=== PATIENT | male | born 1945 | race Caucasian/White ===

== ENCOUNTER 2016-03-17 21:15 | Observation (INO) | payer MEDICARE ==
[~2016-03-17] VITALS: Ht 190.5 cm; Wt 122.2 kg
[~2016-03-17 21:15] MED LIST: ADAL60TA9 PO; CLON.1; COUM5TAB PO; GLYB1TAB51 PO; LIPI40TA PO; LISI-589; METF850T PO; TAMS0.4C67 PO
[2016-03-17 21:23] VITALS: BP 151/83; PULSE 90; RESP 20; TEMP 98.1; O2SAT 97
[2016-03-17] MEDS ORDERED: SODIUM CHLORIDE 0.9% FLUSH 5 ML FLUSH IVF PRN (21:45)
[2016-03-17] MEDS ORDERED: SODIUM CHLORID 0.9% 500 ML INJ 500 ML IV ONE (21:45)
[2016-03-17] MEDS ORDERED: ASPIRIN 81 MG CHEW TAB PO ONE (21:45)
[2016-03-17] MEDS ORDERED: TAMS5CAP PO (21:51)
[2016-03-17] MEDS ORDERED: LIPI40TA PO (21:51)
[2016-03-17] MEDS ORDERED: ADAL60TA PO (21:51)
[2016-03-17] MEDS ORDERED: LISI-519 PO (21:51)
[2016-03-17] MEDS ORDERED: GLYB5TAB3 PO (21:51)
[2016-03-17] MEDS ORDERED: WARF-23 PO (21:51)
[2016-03-17] MEDS ORDERED: CLON.1 PO (21:51)
[2016-03-17] MEDS ORDERED: METF1000 PO ×2 (21:51)
[2016-03-17] MEDS ORDERED: BYET10IN2 SQ (21:53)
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
[2016-03-17 22:00] VITALS: O2SAT 96
[2016-03-17 22:18] LABS: AUTOMATED NEUTROPHIL # 7.7 TH/MM3 (1.8-7.7); BASOPHIL # 0.1 TH/MM3 (0-0.2); BASOPHIL % 0.9 % (0.0-2.0); EOSINOPHIL # 0.5 TH/MM3 (0-0.4); EOSINOPHIL % 4.4 % (0.0-4.0); HEMATOCRIT 41.8 % (39.0-51.0); HEMO FLAGS DIFF FINAL; LYMPHOCYTE # 1.9 TH/MM3 (1.0-4.8); MEAN CELL VOLUME 89.5 FL (80.0-100.0); MEAN CORPUSCULAR HEMOGLOBIN 30.7 PG (27.0-34.0); MEAN CORPUSCULAR HGB CONC 34.3 % (32.0-36.0); MONO % 5.8 % (0.0-8.0); NEUT % 70.9 % (16.0-70.0); PLATELET COUNT 233 TH/MM3 (150-450); RED BLOOD COUNT 4.67 MIL/MM3 (4.50-5.90); RED CELL DISTRIBUTION WIDTH 12.9 % (11.6-17.2); WHITE BLOOD COUNT 10.8 TH/MM3 (4.0-11.0)
--- NOTE | 2016-03-17 22:20 | RADHPO ---
EXAM DATE/TIME: 03/17/2016 22:13 [facility] COMPARISON: CHEST SINGLE AP, January 30, 2015, 18:38. INDICATIONS : Chest pain. MEDICAL HISTORY : None. SURGICAL HISTORY : None. ENCOUNTER: Initial ACUITY: 2 days PAIN SCORE: 6/10 LOCATION: Bilateral chest FINDINGS: A single view of the chest demonstrates the lungs to be symmetrically aerated without evidence of mas s, infiltrate or effusion. The heart size is enlarged. Osseous structures are intact. CONCLUSION: Cardiomegaly. Mick Carter MD on March 17, 2016 at 22:18 Board Certified Radiologist. This report was verified electronically.
[2016-03-17 22:30] VITALS: BP 133/95; PULSE 83; RESP 16
[2016-03-17 22:32] LABS: CHLORIDE 105 MEQ/L (98-107); POTASSIUM 3.6 MEQ/L (3.5-5.1); SODIUM (NA) 142 MEQ/L (136-145)
[2016-03-17 22:37] LABS: ANION GAP 11 MEQ/L (5-15); APTT (PATIENT) 31.3 SEC (24.3-30.1); BICARBONATE 25.6 MEQ/L (21.0-32.0); BLOOD UREA NITROGEN 17 MG/DL (7-18); MAGNESIUM 1.9 MG/DL (1.5-2.5); PROTHROMBIN TIME - PATIENT 22.4 SEC (9.8-11.6)
[2016-03-17 22:40] LABS: ALT (GPT) 34 U/L (12-78); AST (GOT) 21 U/L (15-37); GLOMERULAR FILTRATION RATE 66 ML/MIN (>89)
[2016-03-17 22:41] LABS: TOTAL BILIRUBIN ADULT 0.4 MG/DL (0.2-1.0)
[2016-03-17 22:43] LABS: ALKALINE PHOSPHATASE 74 U/L (45-117)
[2016-03-17 22:59] LABS: CREATINE KINASE 82 U/L (39-308)
[2016-03-17 23:26] VITALS: BP 152/96; PULSE 85; RESP 18; O2SAT 97
[2016-03-18] VITALS (9 sets, daily range): BP systolic 128–161; BP diastolic 75–100; PULSE 62–88; RESP 16–20; TEMP 97.4–98.5; O2SAT 95–99
[2016-03-18] MEDS ORDERED: DO NOT ADM ANY ANTICOAGULANT DRUGS XX PRN (00:15)
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
[2016-03-18] MEDS ORDERED: SODIUM CHLORIDE 0.9% FLUSH 5 ML FLUSH FLUSH PRN (00:30)
[2016-03-18] MEDS ORDERED: NALOXONE HCL 0.4 MG/ML AMP IV PRN (00:30)
[2016-03-18] MEDS ORDERED: EXENATIDE SQ SCH (00:30)
[2016-03-18] MEDS ORDERED: TEMAZEPAM 15 MG CAP PO PRN (00:30)
[2016-03-18] MEDS ORDERED: NITROGLYCERIN 0.3 MG SL 100 TABS/BTL SL PRN (00:30)
[2016-03-18] MEDS ORDERED: BISACODYL 10 MG SUPP PR PRN (00:30)
[2016-03-18] MEDS ORDERED: [UNRECOGNIZED DRUG - OTHER] SQ SCH (00:30)
[2016-03-18] MEDS ORDERED: ACETAMINOPHEN 325 MG TAB PO PRN (00:30)
[2016-03-18] MEDS ORDERED: GLUCAGON 1 MG/ML VIAL OTHER PRN (00:45)
[2016-03-18] MEDS ORDERED: DEXTROSE 50% IN WATER 50 ML VIAL(D50) IV PUSH PRN (00:45)
[2016-03-18] MEDS: INSULIN ASPART SUPPLEMENTAL SCALE SQ SCH ×4 (05:48→21:03)
[2016-03-18] MEDS: glyBURIDE 5 MG TAB PO SCH ×2 (05:59→13:38)
[2016-03-18] MEDS ORDERED: glyBURIDE 5 MG TAB PO SCH ×3 (07:00→09:00)
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
[2016-03-18] MEDS ORDERED: metFORMIN HCL 500 MG TAB PO SCH ×2 (09:00→21:00)
[2016-03-18] MEDS ORDERED: REGADENOSON INJ 0.4 MG/5 ML SYR IV ONE (12:47)
[2016-03-18] MEDS: cloNIDine HCL 0.1 MG TAB PO SCH ×3 (13:00→17:10)
[2016-03-18] MEDS: NIFEdipine 60 MG SUSTAINED RELEASE TAB PO SCH (13:37)
[2016-03-18] MEDS: LISINOPRIL 5 MG TAB PO SCH (13:37)
[2016-03-18] MEDS: ATORVASTATIN 40 MG TAB PO SCH (13:38)
[2016-03-18] MEDS: SODIUM CHLORIDE 0.9% FLUSH 5 ML FLUSH FLUSH SCH ×2 (13:39→21:04)
--- NOTE | 2016-03-18 15:49 | EKG ---
Date Performed: 03/17/2016 Time Performed: 21:58:24 PTAGE: 71 years EKG: Atrial fibrillation Possible anteroseptal infarct - age undetermined Inferior/lateral ST-T changes are nonspecific Low QRS voltages in limb leads Compared to prior tracing no significant haskins e Abnormal ECG PREVIOUS TRACING : 06/19/2014 09.41 DOCTOR: Lizet Mari Interpretating Date/Time 03/18/2016 15:46:02
--- NOTE | 2016-03-18 15:49 | EKG ---
Date Performed: 03/18/2016 Time Performed: 07:27:30 PTAGE: 71 years EKG: Atrial fibrillation. Possible anteroseptal infarct - age undetermined Inferior/lateral T wa ve changes are nonspecific Low QRS voltages in limb leads Compared to prior tracing no significant ch cynthia Abnormal ECG PREVIOUS TRACING : 03/17/2016 21.58 DOCTOR: Lizet Mari Interpretating Date/Time 03/18/2016 15:45:51
[2016-03-18] MEDS ORDERED: WARFARIN SOD 5 MG TAB PO SCH (16:00)
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
[2016-03-18] MEDS ORDERED: TAMSULOSIN HCL 0.4 MG CAP PO SCH (21:00)
[2016-03-19] VITALS: BP 139/89; PULSE 73; RESP 20; TEMP 96.8; O2SAT 98
[2016-03-19 04:00] VITALS: BP 130/91; PULSE 62; RESP 20; TEMP 96.7; O2SAT 99
[2016-03-19] MEDS: glyBURIDE 5 MG TAB PO SCH (05:46)
[2016-03-19] MEDS: INSULIN ASPART SUPPLEMENTAL SCALE SQ SCH ×2 (05:46→11:00)
--- NOTE | 2016-03-19 07:15 | PD.CARD.PN ---
Subjective Subjective Remarks denies any chest pain, shortness of breath, or palpitations Objective Vital Signs / I&O Vital Signs Date Time Temp Pulse Resp B/P Pulse Ox O2 Delivery O2 Flow Rate FiO2 03/19/16 04:00 96.7 62 20 130/91 99 03/19/16 00:00 96.8 73 20 139/89 98 03/18/16 20:01 78 03/18/16 20:00 97.4 70 20 128/78 99 03/18/16 16:00 97.7 88 19 140/75 95 03/18/16 12:00 98.5 80 20 160/100 97 03/18/16 08:00 97.5 79 20 160/85 96 I/O 03/18/16 03/18/16 03/18/16 03/19/16 03/19/16 03/19/16 07:00 15:00 23:00 07:00 15:00 23:00 Intake Total 500 ml 0 ml 60 ml Output Total 200 ml Balance 300 ml 0 ml 60 ml Intake Oral 60 ml IV Total 500 ml 0 ml 0 ml Output Urine Total 200 ml # Voids 4 3 # Bowel Movements 0 0 Physical Exam GENERAL: Well-nourished, well-developed patient in no apparent distress. NECK: No JVD. No carotid bruit. CARDIOVASCULAR: Regular rate and rhythm. S1/S2 no murmur, rub, or gallop. RESPIRATORY: No accessory muscle use. Clear to auscultation. Breath sounds equal bilaterally. GASTROINTESTINAL: Abdomen soft, non-tender, nondistended. MUSCULOSKELETAL: Extremities without clubbing, cyanosis, or edema. Laboratory Laboratory Tests Test 03/18/16 07:20 Troponin I LESS THAN 0.02 NG/ML Assessment and Plan Problem List: (1) Chest pain (2) Atrial fibrillation Assessment and Plan Afib - rate control strategy atypical chest pain and cardiac work up so far negative and SPECT will be completed today Problem Qualifiers (1) Chest pain: Qualified Code: R07.9 - Chest pain, unspecified type (2) Atrial fibrillation: Qualified Code: I48.2 - Permanent atrial fibrillation Rhys Schreiber Mar 19, 2016 07:15
[2016-03-19 08:00] VITALS: BP 164/98; PULSE 79; RESP 18; TEMP 96.8; O2SAT 97
[2016-03-19] MEDS: NIFEdipine 60 MG SUSTAINED RELEASE TAB PO SCH (08:32)
[2016-03-19] MEDS: LISINOPRIL 5 MG TAB PO SCH (08:32)
[2016-03-19] MEDS: SODIUM CHLORIDE 0.9% FLUSH 5 ML FLUSH FLUSH SCH (08:33)
[2016-03-19] MEDS: cloNIDine HCL 0.1 MG TAB PO SCH (08:33)
[2016-03-19] MEDS: ATORVASTATIN 40 MG TAB PO SCH (08:33)
[2016-03-19 12:00] VITALS: BP 130/72; PULSE 85; RESP 18; TEMP 98.7; O2SAT 97
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
--- NOTE | 2016-03-19 13:26 | RADHPO ---
EXAM DATE/TIME: 03/18/2016 13:05 [facility] COMPARISON: No previous studies available for comparison. INDICATIONS : Substernal chest pain radiating to left arm. Angina. Atrial fibrillation. DOSE: 30.1 mCi Tc99m Myoview at stress. 30.1 mCi Tc99m Myoview at rest. 0.4 mg Lexiscan STRESS SYMPTOMS: Headache and shortness of breath. EJECTION FRACTION: 42% MEDICAL HISTORY : Hypertension. Diabetes mellitus type 2. SURGICAL HISTORY : Throat polyps removed. ENCOUNTER: Initial ACUITY: 1 day PAIN SCALE: 5/10 LOCATION: Substernal chest TECHNIQUE: The patient underwent pharmacologic stress with infusion of prescribed dose. Continuous ECG tracing was monitored during stress. Gated SPECT imaging was performed after stress and conventional SPECT i maging was performed at rest. The examination was performed on a SPECT/CT scanner, both attenuation and non-corrected datasets were reviewed. FINDINGS: DISTRIBUTION: The maximum perfused segment at stress is in the septal wall. PERFUSION STUDY: The pattern of perfusion at stress is within normal limits. GATED STUDY: There is intact wall motion and thickening with mild global hypokinesis and 42% ejection fraction CONCLUSION: Global hypokinesis with 42% ejection fraction. No ischemic segments are identified. Left ventricular chamber enlargement RISK CATEGORY: Intermediate (1-3% Annual Mortality Rate) Loy Huddleston MD on March 19, 2016 at 13:22 Board Certified Radiologist. This report was verified electronically.
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
== END 2016-03-19 14:36 | disposition home or self-care (01) ==
LOC: PHED 21:15 → PHEDA 23:44 → PH3B 03-18 01:39
PROVIDERS: ADMIT Internal Medicine; ATTEND Internal Medicine
DX: R07.9 Chest pain, unspecified (principal); I48.91 Unspecified atrial fibrillation; E11.9 Type 2 diabetes mellitus without complications; I10 Essential (primary) hypertension; E78.5 Hyperlipidemia, unspecified; F17.200 Nicotine dependence, unspecified, uncomplicated; J45.909 Unspecified asthma, uncomplicated; M19.90 Unspecified osteoarthritis, unspecified site; M10.9 Gout, unspecified; N40.0 Benign prostatic hyperplasia without lower urinary tract symptoms; M79.622 Pain in left upper arm; E16.2 Hypoglycemia, unspecified; Z79.01 Long term (current) use of anticoagulants
CPT/HCPCS: 71010; 78452; 80053; 82550; 82948; 83735; 83880; 84484; 85025; 85610; 85730; 93005; 93017; 96360; 99285; A9502; G0378; J1815; J2785; J7040

== ENCOUNTER 2016-11-01 21:53 | Emergency (ER) | payer MEDICARE ==
[~2016-11-01] VITALS: Ht 190.5 cm; Wt 118.2 kg
[~2016-11-01 21:53] MED LIST changes: +ADAL60TA PO; -ADAL60TA9 PO; +BYET10IN2 SQ; -CLON.1; +CLON.1 PO; -COUM5TAB PO; -GLYB1TAB51 PO; +GLYB5TAB3 PO; +LISI-519 PO; -LISI-589; +METF1000 PO; -METF850T PO; -TAMS0.4C67 PO; +TAMS5CAP PO; +WARF-23 PO
[2016-11-01 21:56] VITALS: BP 185/83; PULSE 81; RESP 20; TEMP 98.2; O2SAT 98
--- NOTE | 2016-11-01 22:23 | PD ---
HPI Chief Complaint: Headache Time Seen by Provider: 22:12 Travel History International Travel<30 days: No Contact w/Intl Traveler<30days: No Traveled to known affect area: No History of Present Illness HPI The patient is a 71-year-old male that complains of midline frontoparietal headache for 2 days. The headache is of gradual onset. The patient is on Coumadin for atrial fibrillation. He also has a history of diabetes and hypertension. He denies any focal neurologic change, nausea, vomiting or diarrhea. He denies any fever. PFSH Past Medical History Hx Anticoagulant Therapy: Yes (COUMADIN ) Arthritis: Yes (L HIP) Asthma: Yes Atrial Fibrillation: Yes Autoimmune Disease: No Blood Disorders: No Anxiety: No Depression: No Heart Rhythm Problems: Yes (A FIB) Cancer: No Cardiac Catheterization: No Cardiovascular Problems: Yes (HTN, A Fib ) High Cholesterol: Yes Chemotherapy: No Chest Pain: Yes Congestive Heart Failure: No COPD: No Cerebrovascular Accident: No Diabetes: Yes Diminished Hearing: No Endocrine: Yes Glaucoma: No Gout: Yes Genitourinary: Yes Headaches: No Hypertension: Yes Immune Disorder: No Kidney Stones: Yes Musculoskeletal: Yes Neurologic: No Psychiatric: No Reproductive: No Respiratory: Yes Integumentary: Yes (psoriasis) Myocardial Infarction: No Radiation Therapy: No Renal Failure: No Seizures: No Sickle Cell Disease: No Sleep Apnea: No Thyroid Disease: No Past Surgical History Abdominal Surgery: No AICD: No Cardiac Surgery: No Coronary Artery Bypass Graft: No Ear Surgery: No Endocrine Surgery: No Eye Surgery: No Genitourinary Surgery: Yes (KIDNEY STONE REMOVAL) Gynecologic Surgery: No Oral Surgery: No Pacemaker: No Thoracic Surgery: No Other Surgery: Yes ( THROAT POLYPS 1982) Social History Alcohol Use: No (OWNED A BAR IN 1969'S 'I USED TO DRINK' NOW I DON'T) Tobacco Use: Yes (1959'S 10 CIGARETTES PER DAY, CIGARS OCCASIONALLY) Substance Use: No Allergies-Medications (Allergen,Severity, Reaction): Coded Allergies: No Known Allergies (Verified , 11/01/16) Reported Meds & Prescriptions Reported Meds & Active Scripts Active Reported Byetta Inj (Exenatide) 10 Mcg/0.04 Ml Pfpen 10 Mcg SQ BID Use within 60 minutes before the two main meals of the day. Flomax (Tamsulosin HCl) 0.4 Mg Cap 0.4 Mg PO HS Warfarin 5 Mg Tab 5 Mg PO DAILY Adalat CC (Nifedipine) 60 Mg Tab 60 Mg PO DAILY Metformin (Metformin HCl) 1,000 Mg Tab 1,500 Mg PO HS With meals Metformin (Metformin HCl) 1,000 Mg Tab 1,000 Mg PO DAILY With a meal Lisinopril 5 Mg Tab 5 Mg PO DAILY Glyburide 5 Mg Tab 5 Mg PO BID Take with meals at the same time each day Catapres (Clonidine) 0.1 Mg Tab 0.1 Mg PO TID Lipitor (Atorvastatin Calcium) 40 Mg Tab 40 Mg PO DAILY Review of Systems Except as stated in HPI: all other systems reviewed are Neg Physical Exam Narrative GENERAL: The patient is alert, oriented 3 in minimal apparent distress with his bifrontal/midline parietal headache. His vital signs show blood pressure 185/83 but are otherwise normal. SKIN: Focused skin assessment warm/dry. HEAD: Atraumatic. Normocephalic. EYES: Pupils equal and round. No scleral icterus. No injection or drainage. ENT: No nasal bleeding or discharge. Mucous membranes pink and moist. NECK: Trachea midline. No JVD. The patient flexes neck fully so that his chin touches the chest. He does not have any problem flexing his neck. CARDIOVASCULAR: Regular rate and rhythm. No murmur appreciated. RESPIRATORY: No accessory muscle use. Clear to auscultation. Breath sounds equal bilaterally. GASTROINTESTINAL: Abdomen soft, non-tender, nondistended. Hepatic and splenic margins not palpable. MUSCULOSKELETAL: No obvious deformities. No clubbing. No cyanosis. No edema. NEUROLOGICAL: Awake and alert. No obvious cranial nerve deficits. Motor grossly within normal limits. Normal speech. PSYCHIATRIC: Appropriate mood and affect; insight and judgment normal. Data Data Last Documented VS Vital Signs Date Time Temp Pulse Resp B/P (MAP) Pulse Ox O2 Delivery O2 Flow Rate FiO2 11/01/16 23:54 79 18 131/68 (89) 98 Room Air 11/01/16 21:56 98.2 Orders Orders Complete Blood Count With Diff (11/01/16 22:24) Comprehensive Metabolic Panel (11/01/16 22:24) Prothrombin Time / Inr (Pt) (11/01/16 22:24) Ct Brain W/O Iv Contrast(Rout) (11/01/16 22:24) Hydromorphone Pf Inj (Dilaudid Pf Inj) (11/01/16 22:45) Ondansetron Inj (Zofran Inj) (11/01/16 22:45) Labs Laboratory Tests Test 11/01/16 23:10 White Blood Count 8.8 TH/MM3 Red Blood Count 4.39 MIL/MM3 Hemoglobin 13.7 GM/DL Hematocrit 40.4 % Mean Corpuscular Volume 92.0 FL Mean Corpuscular Hemoglobin 31.3 PG Mean Corpuscular Hemoglobin Concent 34.0 % Red Cell Distribution Width 13.2 % Platelet Count 200 TH/MM3 Mean Platelet Volume 8.4 FL Neutrophils (%) (Auto) 75.6 % Lymphocytes (%) (Auto) 16.4 % Monocytes (%) (Auto) 6.0 % Eosinophils (%) (Auto) 1.6 % Basophils (%) (Auto) 0.4 % Neutrophils # (Auto) 6.8 TH/MM3 Lymphocytes # (Auto) 1.4 TH/MM3 Monocytes # (Auto) 0.5 TH/MM3 Eosinophils # (Auto) 0.1 TH/MM3 Basophils # (Auto) 0.0 TH/MM3 CBC Comment DIFF FINAL Differential Comment Prothrombin Time 27.3 SEC Prothromb Time International Ratio 2.4 RATIO Blood Urea Nitrogen 18 MG/DL Creatinine 1.10 MG/DL Random Glucose 154 MG/DL Total Protein 6.5 GM/DL Albumin 3.2 GM/DL Calcium Level 8.7 MG/DL Alkaline Phosphatase 58 U/L Aspartate Amino Transf (AST/SGOT) 21 U/L Alanine Aminotransferase (ALT/SGPT) 37 U/L Total Bilirubin 0.4 MG/DL Sodium Level 138 MEQ/L Potassium Level 3.5 MEQ/L Chloride Level 103 MEQ/L Carbon Dioxide Level 23.1 MEQ/L Anion Gap 12 MEQ/L Estimat Glomerular Filtration Rate 66 ML/MIN [facility] Medical Decision Making Medical Screen Exam Complete: Yes Emergency Medical Condition: Yes Medical Record Reviewed: Yes Interpretation(s) The complete metabolic profile shows a GFR of 56, glucose 154 and albumin 3.2 but is otherwise unremarkable. The ProTime is 27.3 with an INR 2.4. The CBC is normal. The CT brain is normal. Differential Diagnosis Headache etiology undetermined, intracranial bleed, meningitis-highly unlikely, electrolyte disorder, sinusitis, viral syndrome, hypertensive headache Narrative Course It is now 1210 and the patient feels much better and wants to go home. He will be given a prescription for Lortab 5/325. His will drive him home. The patient appears to have headache etiology undetermined. Additional Instructions: Do not drink alcohol or drive on the Lortab 5. Follow-up with your primary care physician about this headache should it return. Med/Other Pt SpecificInfo: Prescription(s) given Scripts Hydrocodone-Acetaminophen (Lortab) 5-325 Mg Tab 1 TAB PO Q4H Y for PAIN, #28 TAB 0 Refills Prov: Jefferson Wall MD 11/02/16 Disposition: 01 DISCHARGE HOME Condition: Stable Jefferson Wall MD Nov 01, 2016 22:23
[2016-11-01] MEDS ORDERED: ENALAPRILAT 2.5 MG/2 ML VIAL IV PUSH ONE (22:30)
[2016-11-01] MEDS ORDERED: HYDROmorphone HCL PF 1 MG/ML VIAL IVP ONE (22:45)
[2016-11-01] MEDS ORDERED: ONDANSETRON HCL 4 MG/2 ML VIAL IV ONE (22:45)
--- NOTE | 2016-11-01 23:02 | RADRPT ---
EXAM DATE/TIME: 11/01/2016 22:44 [facility] COMPARISON: CT BRAIN W/O CONTRAST, June 19, 2014, 11:25. INDICATIONS : Bilateral frontal cephalgia. RADIATION DOSE: 62.91 CTDIvol (mGy) MEDICAL HISTORY : Diabetes mellitus type 2. Hypertension. SURGICAL HISTORY : None. ENCOUNTER: Initial ACUITY: 2 days PAIN SCALE: 7/10 LOCATION: Bilateral frontal TECHNIQUE: Multiple contiguous axial images were obtained of the head. Using automated exposure control and adj ustment of the mA and/or kV according to patient size, radiation dose was kept as low as reasonably a chievable to obtain optimal diagnostic quality images. DICOM format image data is available electro nically for review and comparison. FINDINGS: CEREBRUM: The ventricles are normal for age. No evidence of midline shift, mass lesion, hemorrhage or acute in farction. No extra-axial fluid collections are seen. POSTERIOR FOSSA: The cerebellum and brainstem are intact. The 4th ventricle is midline. The cerebellopontine angle i s unremarkable. EXTRACRANIAL: The visualized portion of the orbits is intact. SKULL: The calvaria is intact. No evidence of skull fracture. CONCLUSION: Normal examination. Roddy Medeiros Jr., MD on November 01, 2016 at 22:58 Board Certified Radiologist. This report was verified electronically.
[2016-11-01 23:15] VITALS: BP 141/90; PULSE 78; RESP 18; O2SAT 99
[2016-11-01 23:27] LABS: AUTOMATED NEUTROPHIL # 6.8 TH/MM3 (1.8-7.7); BASOPHIL % 0.4 % (0.0-2.0); EOSINOPHIL # 0.1 TH/MM3 (0-0.4); EOSINOPHIL % 1.6 % (0.0-4.0); HEMATOCRIT 40.4 % (39.0-51.0); HEMO FLAGS DIFF FINAL; LYMPH % 16.4 % (9.0-44.0); LYMPHOCYTE # 1.4 TH/MM3 (1.0-4.8); MEAN CORPUSCULAR HEMOGLOBIN 31.3 PG (27.0-34.0); NEUT % 75.6 % (16.0-70.0); PLATELET COUNT 200 TH/MM3 (150-450); RED BLOOD COUNT 4.39 MIL/MM3 (4.50-5.90); RED CELL DISTRIBUTION WIDTH 13.2 % (11.6-17.2); WHITE BLOOD COUNT 8.8 TH/MM3 (4.0-11.0)
[2016-11-01 23:37] LABS: CHLORIDE 103 MEQ/L (98-107); POTASSIUM 3.5 MEQ/L (3.5-5.1); SODIUM (NA) 138 MEQ/L (136-145)
[2016-11-01 23:41] LABS: ANION GAP 12 MEQ/L (5-15); BICARBONATE 23.1 MEQ/L (21.0-32.0); BLOOD UREA NITROGEN 18 MG/DL (7-18); INTERNATIONAL NORMALIZED RATIO 2.4 RATIO; PROTHROMBIN TIME - PATIENT 27.3 SEC (9.8-11.6)
[2016-11-01 23:44] LABS: ALT (GPT) 37 U/L (12-78); AST (GOT) 21 U/L (15-37); GLOMERULAR FILTRATION RATE 66 ML/MIN (>89)
[2016-11-01 23:45] LABS: TOTAL BILIRUBIN ADULT 0.4 MG/DL (0.2-1.0)
[2016-11-01 23:47] LABS: ALKALINE PHOSPHATASE 58 U/L (45-117)
[2016-11-01 23:54] VITALS: BP 131/68; PULSE 79; RESP 18; O2SAT 98
[2016-11-02] MEDS ORDERED: HYDR-3533 PO (00:11)
[2016-11-02 00:49] VITALS: BP 136/78
== END 2016-11-02 00:51 | disposition home or self-care (01) ==
LOC: PHED 21:53
DX: R51 Headache (principal); F17.210 Nicotine dependence, cigarettes, uncomplicated; I10 Essential (primary) hypertension; I48.91 Unspecified atrial fibrillation; Z79.01 Long term (current) use of anticoagulants
CPT/HCPCS: 70450; 80053; 85025; 85610; 96374; 96375; 99285; J1170; J2405

== ENCOUNTER 2016-12-25 04:08 | Emergency (ER) | payer MEDICARE ==
[~2016-12-25] VITALS: Ht 190.5 cm; Wt 121.6 kg
[~2016-12-25 04:08] MED LIST changes: +HYDR-3533 PO
[2016-12-25 04:14] VITALS: BP 141/69; PULSE 93; RESP 16; TEMP 97.8; O2SAT 97
[2016-12-25] MEDS ORDERED: SODIUM CHLORIDE 0.9% FLUSH 10 ML FLUSH IVF PRN (04:15)
[2016-12-25 04:23] VITALS: O2SAT 97
[2016-12-25 04:26] VITALS: BP_SYST 136; BP_SYST 141; BP_DIAS 68; BP_DIAS 69
[2016-12-25 04:30] LABS: AUTOMATED NEUTROPHIL # 7.4 TH/MM3 (1.8-7.7); BASOPHIL # 0.3 TH/MM3 (0-0.2); BASOPHIL % 2.1 % (0.0-2.0); EOSINOPHIL # 0.8 TH/MM3 (0-0.4); EOSINOPHIL % 6.2 % (0.0-4.0); HEMATOCRIT 38.4 % (39.0-51.0); HEMO FLAGS DIFF FINAL; LYMPH % 24.5 % (9.0-44.0); MEAN CELL VOLUME 90.3 FL (80.0-100.0); MEAN CORPUSCULAR HEMOGLOBIN 29.8 PG (27.0-34.0); MONO % 6.1 % (0.0-8.0); NEUT % 61.1 % (16.0-70.0); PLATELET COUNT 252 TH/MM3 (150-450); RED BLOOD COUNT 4.25 MIL/MM3 (4.50-5.90); WHITE BLOOD COUNT 12.2 TH/MM3 (4.0-11.0)
[2016-12-25 04:36] LABS: CHLORIDE 101 MEQ/L (98-107); POTASSIUM 3.4 MEQ/L (3.5-5.1); SODIUM (NA) 136 MEQ/L (136-145)
--- NOTE | 2016-12-25 04:37 | RADRPT ---
EXAM DATE/TIME: 12/25/2016 04:23 [facility] COMPARISON: CHEST SINGLE AP, March 17, 2016, 22:13. INDICATIONS : Chest pressure for 8 hours MEDICAL HISTORY : None. SURGICAL HISTORY : None. ENCOUNTER: Initial ACUITY: 1 day PAIN SCORE: 0/10 LOCATION: Bilateral chest FINDINGS: The cardiac silhouette is enlarged in transverse diameter. There is prominence of the aortic knob is with calcification characteristic of atherosclerotic vascular disease. There is prominence of the liane tral pulmonary vasculature with indistinct vascular margins compatible with vascular congestion but n o evidence of overt failure. CONCLUSION: 1. Cardiomegaly and findings of vascular congestion without overt failure. Loy Huddleston MD on December 25, 2016 at 4:35 Board Certified Radiologist. This report was verified electronically.
[2016-12-25 04:39] LABS: INTERNATIONAL NORMALIZED RATIO 2.8 RATIO; PROTHROMBIN TIME - PATIENT 32.4 SEC (9.8-11.6)
[2016-12-25 04:40] LABS: ANION GAP 11 MEQ/L (5-15); BICARBONATE 24.5 MEQ/L (21.0-32.0); BLOOD UREA NITROGEN 19 MG/DL (7-18); MAGNESIUM 1.6 MG/DL (1.5-2.5)
[2016-12-25 04:43] LABS: ALT (GPT) 28 U/L (12-78); AST (GOT) 12 U/L (15-37); GLOMERULAR FILTRATION RATE 87 ML/MIN (>89)
[2016-12-25 04:45] LABS: TOTAL BILIRUBIN ADULT 0.4 MG/DL (0.2-1.0)
[2016-12-25 04:46] LABS: ALKALINE PHOSPHATASE 69 U/L (45-117)
[2016-12-25 04:49] LABS: CREATINE KINASE 70 U/L (39-308)
--- NOTE | 2016-12-25 04:53 | PD ---
HPI Chief Complaint: Chest Pain Time Seen by Provider: 04:15 Travel History International Travel<30 days: No Contact w/Intl Traveler<30days: No Traveled to known affect area: No History of Present Illness HPI The patient is a 71-year-old male with a history of chronic atrial fibrillation and is on Coumadin for this who complains of a pressure type pain in the lower sternal area since 8 PM yesterday. The pain is been constant since 8 PM and is not associated with nausea, shortness of breath, diaphoresis or radiation of pain. The pain has been constant since 8 PM and is not associated with nausea, shortness of breath, diaphoresis or radiation of pain. He does not smoke but took one cigarette and got nauseated yesterday. He does experience secondhand smoke. The patient had a normal stress test 6 months ago. PFSH Past Medical History Hx Anticoagulant Therapy: Yes (COUMADIN ) Arthritis: Yes (L HIP) Asthma: Yes Atrial Fibrillation: Yes Autoimmune Disease: No Blood Disorders: No Anxiety: No Depression: No Heart Rhythm Problems: Yes (A FIB) Cancer: No Cardiac Catheterization: No Cardiovascular Problems: Yes (HTN, A Fib ) High Cholesterol: Yes Chemotherapy: No Chest Pain: Yes Congestive Heart Failure: No COPD: No Cerebrovascular Accident: No Diabetes: Yes Patient Takes Glucophage: No Diminished Hearing: No Endocrine: Yes Gastrointestinal Disorders: No Glaucoma: No Gout: Yes Genitourinary: Yes Headaches: No Heparin Induced Thrombocytopen: No Hypertension: Yes Immune Disorder: No Implanted Vascular Access Dvce: No Kidney Stones: Yes Musculoskeletal: Yes Neurologic: No Psychiatric: No Reproductive: No Respiratory: Yes Integumentary: Yes (psoriasis) Myocardial Infarction: No Radiation Therapy: No Renal Failure: No Seizures: No Sickle Cell Disease: No Sleep Apnea: No Thyroid Disease: No Tetanus Vaccination: < 5 Years Influenza Vaccination: No Past Surgical History Abdominal Surgery: No AICD: No Cardiac Surgery: No Coronary Artery Bypass Graft: No Ear Surgery: No Endocrine Surgery: No Eye Surgery: No Genitourinary Surgery: Yes (KIDNEY STONE REMOVAL) Gynecologic Surgery: No Insulin Pump: No Neurologic Surgery: No Oral Surgery: No Pacemaker: No Thoracic Surgery: No Other Surgery: Yes ( THROAT POLYPS 1982) Social History Alcohol Use: No (OWNED A BAR IN 'I USED TO DRINK' NOW I DON'T) Tobacco Use: Yes (1960'S 10 CIGARETTES PER DAY, CIGARS OCCASIONALLY) Substance Use: No Allergies-Medications (Allergen,Severity, Reaction): Coded Allergies: No Known Allergies (Verified Adverse Reaction, Unknown, 12/25/16) Reported Meds & Prescriptions Reported Meds & Active Scripts Active Reported [place] Inj (Exenatide) 10 Mcg/0.04 Ml Pfpen 10 Mcg SQ BID Use within 60 minutes before the two main meals of the day. Flomax (Tamsulosin HCl) 0.4 Mg Cap 0.4 Mg PO HS Warfarin 5 Mg Tab 5 Mg PO DAILY Adalat CC (Nifedipine) 60 Mg Tab 60 Mg PO DAILY Metformin (Metformin HCl) 1,000 Mg Tab 1,500 Mg PO HS With meals Metformin (Metformin HCl) 1,000 Mg Tab 1,000 Mg PO DAILY With a meal Lisinopril 5 Mg Tab 5 Mg PO DAILY Glyburide 5 Mg Tab 5 Mg PO BID Take with meals at the same time each day Catapres (Clonidine) 0.1 Mg Tab 0.1 Mg PO TID Lipitor (Atorvastatin Calcium) 40 Mg Tab 40 Mg PO DAILY Review of Systems Except as stated in HPI: all other systems reviewed are Neg Physical Exam Narrative GENERAL: The patient is alert, oriented 3 in minimal apparent distress with his chest discomfort. His vital signs show heart rate of 93 but otherwise normal. SKIN: Focused skin assessment warm/dry. HEAD: Atraumatic. Normocephalic. EYES: Pupils equal and round. No scleral icterus. No injection or drainage. ENT: No nasal bleeding or discharge. Mucous membranes pink and moist. NECK: Trachea midline. No JVD. CARDIOVASCULAR: Regular rate and rhythm. No murmur appreciated. I can completely reproduce the patient's chest pain by pressing on his lower sternal area where he perceives the pain. RESPIRATORY: No accessory muscle use. Clear to auscultation. Breath sounds equal bilaterally. GASTROINTESTINAL: Abdomen soft, non-tender, nondistended. Hepatic and splenic margins not palpable. MUSCULOSKELETAL: No obvious deformities. No clubbing. No cyanosis. No edema. NEUROLOGICAL: Awake and alert. No obvious cranial nerve deficits. Motor grossly within normal limits. Normal speech. PSYCHIATRIC: Appropriate mood and affect; insight and judgment normal. Data Data Last Documented VS Vital Signs Date Time Temp Pulse Resp B/P (MAP) Pulse Ox O2 Delivery O2 Flow Rate FiO2 12/25/16 04:26 141/69 (93) 136/68 (90) 12/25/16 04:23 97 Room Air 12/25/16 04:14 97.8 93 16 Orders Orders Electrocardiogram (12/25/16 04:15) Ckmb (Isoenzyme) Profile (12/25/16 04:15) Complete Blood Count With Diff (12/25/16 04:15) Comprehensive Metabolic Panel (12/25/16 04:15) Magnesium (Mg) (12/25/16 04:15) Prothrombin Time / Inr (Pt) (12/25/16 04:15) Troponin I (12/25/16 04:15) Chest, Single Ap (12/25/16 04:15) Ecg Monitoring (12/25/16 04:15) Bilateral Bp Monitoring (12/25/16 04:15) Iv Access Insert/Monitor (12/25/16 04:15) Oximetry (12/25/16 04:15) Oxygen Administration (12/25/16 04:15) Sodium Chloride 0.9% Flush (Ns Flush) (12/25/16 04:15) Labs Laboratory Tests Test 12/25/16 04:24 White Blood Count 12.2 TH/MM3 Red Blood Count 4.25 MIL/MM3 Hemoglobin 12.6 GM/DL Hematocrit 38.4 % Mean Corpuscular Volume 90.3 FL Mean Corpuscular Hemoglobin 29.8 PG Mean Corpuscular Hemoglobin Concent 33.0 % Red Cell Distribution Width 13.0 % Platelet Count 252 TH/MM3 Mean Platelet Volume 8.4 FL Neutrophils (%) (Auto) 61.1 % Lymphocytes (%) (Auto) 24.5 % Monocytes (%) (Auto) 6.1 % Eosinophils (%) (Auto) 6.2 % Basophils (%) (Auto) 2.1 % Neutrophils # (Auto) 7.4 TH/MM3 Lymphocytes # (Auto) 3.0 TH/MM3 Monocytes # (Auto) 0.7 TH/MM3 Eosinophils # (Auto) 0.8 TH/MM3 Basophils # (Auto) 0.3 TH/MM3 CBC Comment DIFF FINAL Differential Comment Prothrombin Time 32.4 SEC Prothromb Time International Ratio 2.8 RATIO Blood Urea Nitrogen 19 MG/DL Creatinine 0.86 MG/DL Random Glucose 146 MG/DL Total Protein 7.3 GM/DL Albumin 3.5 GM/DL Calcium Level 8.5 MG/DL Magnesium Level 1.6 MG/DL Alkaline Phosphatase 69 U/L Aspartate Amino Transf (AST/SGOT) 12 U/L Alanine Aminotransferase (ALT/SGPT) 28 U/L Total Bilirubin 0.4 MG/DL Sodium Level 136 MEQ/L Potassium Level 3.4 MEQ/L Chloride Level 101 MEQ/L Carbon Dioxide Level 24.5 MEQ/L Anion Gap 11 MEQ/L Estimat Glomerular Filtration Rate 87 ML/MIN Total Creatine Kinase 70 U/L Troponin I LESS THAN 0.02 NG/ML MDM Medical Decision Making Medical Screen Exam Complete: Yes Emergency Medical Condition: Yes Medical Record Reviewed: Yes Interpretation(s) The EKG shows atrial fibrillation which is controlled to a ventricular rate of [address] elevation or depression. There is a single PVC present. The ProTime is 32.4 with an INR of 2.8. The complete metabolic profile shows a potassium of 3.4, BUN of 19, glucose of 146 but is otherwise unremarkable. The cardiac enzymes are normal. The CBC shows a white count of 12,200 with a hemoglobin of 12.6 and hematocrit of 23.4 but is otherwise unremarkable. Differential Diagnosis Acute coronary syndrome, atypical chest pain, pleuritic chest pain, chest wall pain, esophageal pain, gastrointestinal pain, electrolyte disorder, Coumadin over coagulation, Coumadin under coagulation Narrative Course The patient appears to have chest wall pain. He does not have any elevation of the coronary enzymes. He had a normal stress test 6 months ago. He does want to go home now. He has no chest pain now. His INR appears to be right on target. Diagnosis Primary Impression: Chest wall pain Additional Instructions: Follow-up with your primary care physician or plate preparer. It appears that your warfarin level is right on target. Med/Other Pt SpecificInfo: No Change to Meds Disposition: 01 DISCHARGE HOME Condition: Stable Jefferson Wall MD Dec 25, 2016 04:53
[2016-12-25 05:01] VITALS: BP 126/66
--- NOTE | 2016-12-25 18:04 | EKG ---
Date Performed: 12/25/2016 Time Performed: 04:18:39 PTAGE: 71 years EKG: ATRIAL FIBRILLATION WITH ABERRANT CONDUCTION OR VENTRICULAR PREMATURE COMPLEXES LOW QRS VOL TAGE IN EXTREMITY LEADS ABNORMAL RHYTHM ECG PREVIOUS TRACING : 03/18/2016 07.27 DOCTOR: Evita Lazaro Interpretating Date/Time 12/25/2016 18:02:12
== END 2016-12-25 05:08 | disposition home or self-care (01) ==
LOC: PHED 04:08
DX: R07.89 Other chest pain (principal); R94.31 Abnormal electrocardiogram [ECG] [EKG]; E11.9 Type 2 diabetes mellitus without complications; I10 Essential (primary) hypertension; E78.00 Pure hypercholesterolemia, unspecified; Z79.01 Long term (current) use of anticoagulants; Z79.84 Long term (current) use of oral hypoglycemic drugs; Z79.899 Other long term (current) drug therapy; Z86.79 Personal history of other diseases of the circulatory system; Z87.39 Personal history of other diseases of the musculoskeletal system and connective tissue; Z87.09 Personal history of other diseases of the respiratory system; Z87.448 Personal history of other diseases of urinary system; Z87.2 Personal history of diseases of the skin and subcutaneous tissue
CPT/HCPCS: 71010; 80053; 82550; 83735; 84484; 85025; 85610; 93005; 96360

== ENCOUNTER 2017-06-15 03:08 | Observation (INO) | payer MEDICARE ==
[~2017-06-15] VITALS: Ht 190.5 cm; Wt 109.6 kg
[~2017-06-15 03:08] MED LIST changes: -HYDR-3533 PO
[2017-06-15 03:12] VITALS: BP 114/58; PULSE 91; RESP 18; TEMP 98.4; O2SAT 98
[2017-06-15] MEDS ORDERED: NITROGLYCERIN 2% OINT 1 GM PACKET TOP ONE (03:15)
[2017-06-15] MEDS ORDERED: SODIUM CHLORIDE 0.9% FLUSH 10 ML FLUSH IVF PRN (03:15)
[2017-06-15] MEDS ORDERED: ASPIRIN 81 MG CHEW TAB PO ONE (03:15)
--- NOTE | 2017-06-15 03:15 | PD ---
HPI Chief Complaint: CP Time Seen by Provider: 03:13 Travel History International Travel<30 days: No Contact w/Intl Traveler<30days: No Traveled to known affect area: No History of Present Illness HPI CHEST TIGHTNESS FOR PAST 2-3HRS. Rates the pressure 3 out of 10, nonradiating, substernal, along with palpitations. Patient denies having any shortness of breath, currently he is chest pain-free. Patient denies any alleviating or aggravating factors. Patient denies any associated factors such as fever, cough , runny nose, sore throat, back pain, flank pain, abdominal pain. Cardiac risk factors include hypertension, hypercholesterolemia and diabetes. No known drug allergy Past medical history significant for hypertension, atrial fibrillation on Coumadin, hypercholesterolemia, hypertension, asthma, sleep apnea, kidney stones , gout, diabetes, CLAUSTROPHOBIA, BPH, psoriasis ADMITS 2CIG/DAY, OCC ETOH, PFSH Past Medical History Hx Anticoagulant Therapy: Yes (COUMADIN ) Arthritis: Yes (L HIP) Asthma: Yes Atrial Fibrillation: Yes Autoimmune Disease: No Blood Disorders: No Anxiety: No Depression: No Heart Rhythm Problems: Yes (A FIB) Cancer: No Cardiac Catheterization: No Cardiovascular Problems: Yes (HTN, A Fib ) High Cholesterol: Yes Chemotherapy: No Chest Pain: Yes Congestive Heart Failure: No COPD: No Cerebrovascular Accident: No Diabetes: Yes Diminished Hearing: No Endocrine: Yes Gastrointestinal Disorders: No Glaucoma: No Gout: Yes Genitourinary: Yes Headaches: No Heparin Induced Thrombocytopen: No Hypertension: Yes Immune Disorder: No Implanted Vascular Access Dvce: No Kidney Stones: Yes Musculoskeletal: Yes Neurologic: No Psychiatric: No Reproductive: No Respiratory: Yes Integumentary: Yes (psoriasis) Myocardial Infarction: No Radiation Therapy: No Renal Failure: No Seizures: No Sickle Cell Disease: No Sleep Apnea: No Thyroid Disease: No Past Surgical History Abdominal Surgery: No AICD: No Cardiac Surgery: No Coronary Artery Bypass Graft: No Ear Surgery: No Endocrine Surgery: No Eye Surgery: No Genitourinary Surgery: Yes (KIDNEY STONE REMOVAL) Gynecologic Surgery: No Insulin Pump: No Neurologic Surgery: No Oral Surgery: No Pacemaker: No Thoracic Surgery: No Other Surgery: Yes ( THROAT POLYPS 1982) Social History Alcohol Use: No Tobacco Use: Yes (2-3 cigs qd) Substance Use: No Allergies-Medications (Allergen,Severity, Reaction): Coded Allergies: No Known Allergies (Verified Adverse Reaction, Unknown, 06/15/17) Reported Meds & Prescriptions Reported Meds & Active Scripts Active Reported Coumadin (Warfarin) 2.5 Mg Tab 2.5 Mg PO MON, WED, WED Glyburide 5 Mg Tab 5 Mg PO DAILY Take with meals at the same time each day [place] Inj (Exenatide) 10 Mcg/0.04 Ml Pfpen 10 Mcg SQ BID Use within 60 minutes before the two main meals of the day. Flomax (Tamsulosin HCl) 0.4 Mg Cap 0.4 Mg PO HS Warfarin 5 Mg Tab 5 Mg PO DAILY Adalat CC (Nifedipine) 60 Mg Tab 60 Mg PO DAILY Metformin (Metformin HCl) 1,000 Mg Tab 1,500 Mg PO HS With meals Metformin (Metformin HCl) 1,000 Mg Tab 1,000 Mg PO DAILY With a meal Lisinopril 5 Mg Tab 5 Mg PO DAILY Catapres (Clonidine) 0.1 Mg Tab 0.1 Mg PO TID Lipitor (Atorvastatin Calcium) 40 Mg Tab 40 Mg PO DAILY Review of Systems General / Constitutional: No: Fever Eyes: No: Visual changes HENT: No: Headaches Cardiovascular: Positive: Chest Pain or Discomfort Respiratory: No: Shortness of Breath Gastrointestinal: No: Abdominal Pain Genitourinary: No: Dysuria Musculoskeletal: No: Pain Skin: No Rash Neurologic: No: Weakness Psychiatric: No: Depression Endocrine: No: Polydipsia Hematologic/Lymphatic: No: Easy Bruising Physical Exam Narrative GENERAL: SKIN: Warm and dry. HEAD: Atraumatic. Normocephalic. EYES: Pupils equal and round. No scleral icterus. No injection or drainage. ENT: No nasal bleeding or discharge. Mucous membranes pink and moist. NECK: Trachea midline. No JVD. CARDIOVASCULAR: Irregularly irregular rhythm, non-tachycardic rate RESPIRATORY: No accessory muscle use. Clear to auscultation. Breath sounds equal bilaterally. GASTROINTESTINAL: Abdomen soft, non-tender, nondistended. MUSCULOSKELETAL: Extremities without clubbing, cyanosis, or edema. No obvious deformities. NEUROLOGICAL: Awake and alert. No obvious cranial nerve deficits. Motor grossly within normal limits. Five out of 5 muscle strength in the arms and legs. Normal speech. PSYCHIATRIC: Appropriate mood and affect; insight and judgment normal. Data Data Last Documented VS Vital Signs Date Time Temp Pulse Resp B/P (MAP) Pulse Ox O2 Delivery O2 Flow Rate FiO2 06/15/17 03:12 91 98 Room Air 06/15/17 03:12 98.4 18 114/58 (76) Orders Orders Electrocardiogram (06/15/17 03:15) B-Type Natriuretic Peptide (06/15/17 03:15) Ckmb (Isoenzyme) Profile (06/15/17 03:15) Complete Blood Count With Diff (06/15/17 03:15) Comprehensive Metabolic Panel (06/15/17 03:15) Prothrombin Time / Inr (Pt) (06/15/17 03:15) Act Partial Throm Time (Ptt) (06/15/17 03:15) Troponin I (06/15/17 03:15) Lipase (06/15/17 03:15) Chest, Single Ap (06/15/17 03:15) Ecg Monitoring (06/15/17 03:15) Bilateral Bp Monitoring (06/15/17 03:15) Iv Access Insert/Monitor (06/15/17 03:15) Oximetry (06/15/17 03:15) Aspirin Chew (Aspirin Chew) (06/15/17 03:15) Nitroglycerin 2% Oint (Nitroglycerin 2% (06/15/17 03:15) Sodium Chloride 0.9% Flush (Ns Flush) (06/15/17 03:15) Labs Laboratory Tests Test 06/15/17 03:22 White Blood Count 13.3 TH/MM3 Red Blood Count 4.46 MIL/MM3 Hemoglobin 13.1 GM/DL Hematocrit 40.0 % Mean Corpuscular Volume 89.6 FL Mean Corpuscular Hemoglobin 29.5 PG Mean Corpuscular Hemoglobin Concent 32.9 % Red Cell Distribution Width 13.1 % Platelet Count 248 TH/MM3 Mean Platelet Volume 8.8 FL Neutrophils (%) (Auto) 67.3 % Lymphocytes (%) (Auto) 21.2 % Monocytes (%) (Auto) 4.9 % Eosinophils (%) (Auto) 5.8 % Basophils (%) (Auto) 0.8 % Neutrophils # (Auto) 9.0 TH/MM3 Lymphocytes # (Auto) 2.8 TH/MM3 Monocytes # (Auto) 0.6 TH/MM3 Eosinophils # (Auto) 0.8 TH/MM3 Basophils # (Auto) 0.1 TH/MM3 CBC Comment DIFF FINAL Differential Comment Prothrombin Time 19.6 SEC Prothromb Time International Ratio 1.9 RATIO Activated Partial Thromboplast Time 28.7 SEC Blood Urea Nitrogen 17 MG/DL Creatinine 1.10 MG/DL Random Glucose 175 MG/DL Total Protein 7.6 GM/DL Albumin 3.7 GM/DL Calcium Level 9.2 MG/DL Alkaline Phosphatase 67 U/L Aspartate Amino Transf (AST/SGOT) 19 U/L Alanine Aminotransferase (ALT/SGPT) 31 U/L Total Bilirubin 0.5 MG/DL Sodium Level 137 MEQ/L Potassium Level 3.3 MEQ/L Chloride Level 104 MEQ/L Carbon Dioxide Level 22.5 MEQ/L Anion Gap 11 MEQ/L Estimat Glomerular Filtration Rate 65 ML/MIN Total Creatine Kinase 71 U/L Troponin I LESS THAN 0.02 NG/ML B-Type Natriuretic Peptide 157 PG/ML Lipase 187 U/L MDM Medical Decision Making Medical Screen Exam Complete: Yes Emergency Medical Condition: Yes Medical Record Reviewed: Yes Interpretation(s) EKG shows atrial fibrillation with PVCs, rate around 80s. No evidence of any ST elevation [place] pattern. Differential Diagnosis STEMI versus non-STEMI versus pneumonia versus pleural effusion Narrative Course CBC shows a reactive leukocytosis of 13 but without a left shift, no anemia, normal platelet count Coagulation profile shows an INR 1.9, the patient is appropriately anticoagulated on Coumadin for his atrial fibrillation. Electrolytes are all within normal limits, except for a random glucose of 175, normal creatinine liver and pancreatic functions. First set of cardiac enzymes negative, and beta natruretic peptide is 157 which is not consistent with major pulmonary edema or congestive heart failure. Chest x-ray read by radiologist as borderline prominent heart, lungs are clear. Diagnosis Primary Impression: Chest pain rule out [place] Admitting Information Admitting Physician Requests: John Joseph MD June 15, 2017 03:15
[2017-06-15 03:30] LABS: BASOPHIL # 0.1 TH/MM3 (0-0.2); BASOPHIL % 0.8 % (0.0-2.0); EOSINOPHIL # 0.8 TH/MM3 (0-0.4); EOSINOPHIL % 5.8 % (0.0-4.0); HEMOGLOBIN 13.1 GM/DL (13.0-17.0); LYMPH % 21.2 % (9.0-44.0); LYMPHOCYTE # 2.8 TH/MM3 (1.0-4.8); MEAN CELL VOLUME 89.6 FL (80.0-100.0); MEAN CORPUSCULAR HEMOGLOBIN 29.5 PG (27.0-34.0); MEAN CORPUSCULAR HGB CONC 32.9 % (32.0-36.0); MEAN PLATELET VOLUME 8.8 FL (7.0-11.0); MONO % 4.9 % (0.0-8.0); MONOCYTE # 0.6 TH/MM3 (0-0.9); NEUT % 67.3 % (16.0-70.0); PLATELET COUNT 248 TH/MM3 (150-450); RED BLOOD COUNT 4.46 MIL/MM3 (4.50-5.90); RED CELL DISTRIBUTION WIDTH 13.1 % (11.6-17.2); WHITE BLOOD COUNT 13.3 TH/MM3 (4.0-11.0)
--- NOTE | 2017-06-15 03:34 | RADRPT ---
EXAM DATE/TIME: 06/15/2017 03:22 [facility] COMPARISON: CHEST SINGLE AP, December 25, 2016, 4:23. INDICATIONS : Chest pressure for one hour. MEDICAL HISTORY : None. SURGICAL HISTORY : None. ENCOUNTER: Initial ACUITY: 1 day PAIN SCORE: 0/10 LOCATION: Bilateral chest FINDINGS: A single view of the chest demonstrates the lungs to be symmetrically aerated without evidence of mas s, infiltrate or effusion. The heart size is borderline prominent or compensated. Osseous structure s are intact. CONCLUSION: 1. Borderline prominence or compensated heart. 2. Lungs are clear Dusty Grace MD on June 15, 2017 at 3:31 Board Certified Radiologist. This report was verified electronically.
[2017-06-15 03:39] LABS: CHLORIDE 104 MEQ/L (98-107); SODIUM (NA) 137 MEQ/L (136-145)
[2017-06-15 03:42] LABS: CALCIUM 9.2 MG/DL (8.5-10.1)
[2017-06-15 03:43] LABS: ALBUMIN 3.7 GM/DL (3.4-5.0); BICARBONATE 22.5 MEQ/L (21.0-32.0); BLOOD UREA NITROGEN 17 MG/DL (7-18); GLUCOSE,RANDOM 175 MG/DL (74-106); INTERNATIONAL NORMALIZED RATIO 1.9 RATIO; PROTHROMBIN TIME - PATIENT 19.6 SEC (9.8-11.6)
[2017-06-15 03:46] LABS: ALT (GPT) 31 U/L (12-78); AST (GOT) 19 U/L (15-37); GLOMERULAR FILTRATION RATE 65 ML/MIN (>89)
[2017-06-15] MEDS ORDERED: COUM2.5T PO (03:46)
[2017-06-15] MEDS ORDERED: GLYB5TAB3 PO (03:46)
[2017-06-15 03:47] LABS: TOTAL BILIRUBIN ADULT 0.5 MG/DL (0.2-1.0); TOTAL PROTEIN 7.6 GM/DL (6.4-8.2)
[2017-06-15 03:49] LABS: ALKALINE PHOSPHATASE 67 U/L (45-117)
[2017-06-15 03:51] LABS: TROPONIN I LESS THAN 0.02 NG/ML (0.02-0.05)
[2017-06-15] MEDS ORDERED: SODIUM CHLOR 0.9% 1000 ML INJ 1,000 ML IV SCH (04:14)
[2017-06-15] MEDS ORDERED: SODIUM CHLORIDE 0.9% FLUSH 10 ML FLUSH IV FLUSH PRN (04:15)
[2017-06-15] MEDS ORDERED: ONDANSETRON HCL 4 MG/2 ML VIAL IV PUSH PRN (04:15)
[2017-06-15] MEDS ORDERED: ACETAMINOPHEN 500 MG CPLT PO PRN (04:15)
[2017-06-15 04:28] VITALS: BP 116/59; PULSE 75; RESP 18; O2SAT 95
[2017-06-15] MEDS ORDERED: DEXTROSE 50% IN WATER 50 ML VIAL(D50) IV PUSH PRN (04:30)
[2017-06-15] MEDS ORDERED: GLUCAGON 1 MG/ML VIAL OTHER PRN (04:30)
[2017-06-15 06:30] VITALS: BP 124/73; PULSE 89; RESP 20; TEMP 97.5; O2SAT 97
[2017-06-15 06:40] LABS: TROPONIN I LESS THAN 0.02 NG/ML (0.02-0.05)
[2017-06-15 07:50] VITALS: PULSE 176; PULSE 73
[2017-06-15 08:00] VITALS: BP 125/69; PULSE 85; RESP 19; TEMP 96.8; O2SAT 96
[2017-06-15] MEDS ORDERED: INSULIN ASPART SUPPLEMENTAL SCALE SQ SCH (08:00)
--- NOTE | 2017-06-15 08:13 | HHI.HP ---
[facility] Primary Care Physician Ap Sexton MD Admission Diagnosis CP R/O [place] Diagnoses: (1) Chest pain (2) Atrial fibrillation Chief Complaint: Chest pain Travel History International Travel<30 Days: No Contact w/Intl Traveler <30 Da: No Traveled to Known Affected Are: No History of Present Illness This is a pleasant 72-year-old male patient with a known medical history of atrial fibrillation on anticoagulation, hypertension who presented to the ED with complaints of chest pain. Patient states he had a relatively stressful day with family issues and last evening while laying in bed he developed a pressure-like midsternal chest pain. Patient states the pain was nonradiating, rated at 3 out of 10 on pain scale, denied any associated nausea, vomiting, shortness breath or diaphoresis. Patient denies any known alleviating factors. Pain is worse with movement or deep breathing and to chest palpation. Patient states the pressure lasted roughly 3 hours and then went away on its own but continues to come and go with certain activities. He does admit to having this sensation before roughly a year ago, underwent a cardiac nuclear stress test which was reportedly negative. Patient does follow with Dr. Ramos, cardiology, last seen 6 months ago with no changes in medications. Patient does state he did have similar chest pressure couple months ago went to the urgent care and had an EKG done which was reportedly negative with controlled chronic atrial fibrillation. Patient also states he had an echocardiogram done in the office with Dr. Ramos which was reportedly negative. Patient denies any recent illness including fever, chills, shortness of breath, abdominal pain , nausea, vomiting, diarrhea dysuria. He has been feeling relatively healthy and at his baseline. Patient does admit to recent strenuous activity, denies any trauma to the chest. On palpation of midsternal chest wall there is discomfort, patient states that this discomfort is similar to what he was feeling to bring him into the ED. Toradol effective. PCP is Dr. Sexton. Review of Systems Constitutional: DENIES: Fatigue, Fever, Chills Eyes: DENIES: Blurred vision, Diplopia Respiratory: DENIES: Cough, Sputum production, Shortness of breath Cardiovascular: COMPLAINS OF: Chest pain Gastrointestinal: DENIES: Abdominal pain, Black stools, Bloody stools, Constipation, Diarrhea, Nausea, Vomiting Musculoskeletal: DENIES: Joint pain Hematologic/lymphatic: DENIES: Bruising Psychiatric: DENIES: Anxiety Except as stated in HPI: all other systems reviewed are Neg Past Family Social History Past Medical History Atrial fibrillation on anticoagulation Coumadin Arthritis in the left hip Asthma Hypertension Hypercholesterolemia Gout Psoriasis Past Surgical History Lithotripsy Removal of throat polyps 1982 Reported Medications Active Reported Coumadin (Warfarin) 2.5 Mg Tab 2.5 Mg PO MON, WED, FRI Glyburide 5 Mg Tab 5 Mg PO DAILY Take with meals at the same time each day Byetta Inj (Exenatide) 10 Mcg/0.04 Ml Pfpen 10 Mcg SQ BID Use within 60 minutes before the two main meals of the day. Flomax (Tamsulosin HCl) 0.4 Mg Cap 0.4 Mg PO HS Warfarin 5 Mg Tab 5 Mg PO DAILY Adalat CC (Nifedipine) 60 Mg Tab 60 Mg PO DAILY Metformin (Metformin HCl) 1,000 Mg Tab 1,500 Mg PO HS With meals Metformin (Metformin HCl) 1,000 Mg Tab 1,000 Mg PO DAILY With a meal Lisinopril 5 Mg Tab 5 Mg PO DAILY Catapres (Clonidine) 0.1 Mg Tab 0.1 Mg PO TID Lipitor (Atorvastatin Calcium) 40 Mg Tab 40 Mg PO DAILY Allergies: Coded Allergies: No Known Allergies (Verified Adverse Reaction, Unknown, 06/15/17) Active Ordered Medications Current Medications Medications (Trade) Dose Ordered Sig/Bria Route Start Time Stop Time Status Last Admin Sodium Chloride 1,000 ml @ 100 mls/hr Q10H IV 06/15/17 04:14 06/15/17 05:08 (NS Flush) 2 ml UNSCH PRN IV FLUSH 06/15/17 04:15 (NS Flush) 2 ml BID IV FLUSH 06/15/17 09:00 (Tylenol) 500 mg Q4H PRN PO 06/15/17 04:15 (Zofran Inj) 4 mg Q6H PRN IV PUSH 06/15/17 04:15 (Aspirin) 325 mg DAILY PO 06/15/17 09:00 (Lipitor) 40 mg DAILY PO 06/15/17 09:00 (Catapres) 0.1 mg TID PO 06/15/17 09:00 (Prinivil) 5 mg DAILY PO 06/15/17 09:00 (Procardia Xl) 60 mg DAILY PO 06/15/17 09:00 (Flomax) 0.4 mg HS PO 06/15/17 21:00 (Coumadin) 5 mg DAILY@1600 PO 06/15/17 16:00 Pharmacy Profile Note 0 ml @ 0 mls/hr UNSCH OTHER 06/15/17 04:30 (D50w (Vial) Inj) 50 ml UNSCH PRN IV PUSH 06/15/17 04:30 (Glucagon Inj) 1 mg UNSCH PRN OTHER 06/15/17 04:30 (NovoLOG SUPPLEMENTAL SCALE) 1 ACHS SLIDING SCALE SQ 06/15/17 08:00 (KCl) 30 meq ONCE ONCE PO 06/15/17 08:15 06/15/17 08:16 UNV Family History Denies any significant family medical history of cardiovascular disease. Social History Patient admits to smoking 2-3 cigarettes per day. Patient states that smokes in the home. Denies any alcohol use. Denies any illicit drug use. Physical Exam Vital Signs Vital Signs Date Time Temp Pulse Resp B/P (MAP) Pulse Ox O2 Delivery O2 Flow Rate FiO2 06/15/17 06:30 97.5 89 20 124/73 (90) 97 06/15/17 06:18 06/15/17 04:28 75 18 116/59 (78) 95 Room Air 06/15/17 03:12 91 98 Room Air 06/15/17 03:12 98.4 91 18 114/58 (76) 98 Physical Exam GENERAL: Well-developed, well-nourished patient in NAD. SKIN: Warm and dry. No rash. HEAD: Normocephalic. Atraumatic. EYES: Pupils equal and round. No scleral icterus. No injection or drainage. ENT: No nasal bleeding or discharge. Mucous membranes pink and moist. NECK: Supple. Trachea midline. CARDIOVASCULAR: Irregularly irregular rhythm. No murmur appreciated. Chest pressure/pain to palpation. RESPIRATORY: No accessory muscle use. Clear to auscultation. Breath sounds equal bilaterally. GASTROINTESTINAL: Abdomen soft, non-tender, nondistended. Normoactive bowel sounds x4. MUSCULOSKELETAL: No obvious deformities. Extremities without clubbing, cyanosis , or edema. NEUROLOGICAL: Awake and alert. No obvious cranial nerve deficits. Motor grossly within normal limits. 5/5 muscle strength in bilateral upper and lower extremities. Normal speech. PSYCHIATRIC: Appropriate mood and affect; insight and judgment normal. Laboratory Laboratory Tests Test 06/15/17 03:22 06/15/17 06:10 White Blood Count 13.3 Red Blood Count 4.46 Hemoglobin 13.1 Hematocrit 40.0 Mean Corpuscular Volume 89.6 Mean Corpuscular Hemoglobin 29.5 Mean Corpuscular Hemoglobin Concent 32.9 Red Cell Distribution Width 13.1 Platelet Count 248 Mean Platelet Volume 8.8 Neutrophils (%) (Auto) 67.3 Lymphocytes (%) (Auto) 21.2 Monocytes (%) (Auto) 4.9 Eosinophils (%) (Auto) 5.8 Basophils (%) (Auto) 0.8 Neutrophils # (Auto) 9.0 Lymphocytes # (Auto) 2.8 Monocytes # (Auto) 0.6 Eosinophils # (Auto) 0.8 Basophils # (Auto) 0.1 CBC Comment DIFF FINAL Differential Comment Prothrombin Time 19.6 Prothromb Time International Ratio 1.9 Activated Partial Thromboplast Time 28.7 Blood Urea Nitrogen 17 Creatinine 1.10 Random Glucose 175 Total Protein 7.6 Albumin 3.7 Calcium Level 9.2 Alkaline Phosphatase 67 Aspartate Amino Transf (AST/SGOT) 19 Alanine Aminotransferase (ALT/SGPT) 31 Total Bilirubin 0.5 Sodium Level 137 Potassium Level 3.3 Chloride Level 104 Carbon Dioxide Level 22.5 Anion Gap 11 Estimat Glomerular Filtration Rate 65 Total Creatine Kinase 71 61 Troponin I LESS THAN 0.02 LESS THAN 0.02 B-Type Natriuretic Peptide 157 Lipase 187 Result Diagram: 06/15/17 0322 06/15/17 0322 Imaging Last Impressions Chest X-Ray 06/15/17 0315 Signed Impressions: Service Date/Time: Thursday, June 15, 2017 03:22 - CONCLUSION: 1. Borderline prominence or compensated heart. 2. Lungs are clear Dusty Grace MD Septic Shock Reassessment Septic shock perfusion: reassessment completed Caprini VTE Risk Assessment Caprini VTE Risk Assessment: Mod/High Risk (score >= 2) Caprini Risk Assessment Model Point Value = 1 Point Value = 2 Point Value = 3 Point Value = 5 Age 41-60 Minor surgery BMI > 25 kg/m2 Swollen legs Varicose veins or History of unexplained or recurrent spontaneous Oral contraceptives or hormone replacement Sepsis (< 1 month) Serious lung disease, including pneumonia (< 1 month) Abnormal pulmonary function Acute myocardial infarction Congestive heart failure (< 1 month) History of inflammatory bowel disease Medical patient at bed rest Age 61-74 Arthroscopic surgery Major open surgery (> 45 min) Laparoscopic surgery (> 45 min) Malignancy Confined to bed (> 72 hours) Immobilizing plaster cast Central venous access Age >= 75 History of VTE Family history of VTE Factor V Leiden Prothrombin [id number] Lupus anticoagulant Anticardiolipin antibodies Elevated serum homocysteine Heparin-induced thrombocytopenia Other congenital or acquired thrombophilia Stroke (< 1 month) Elective arthroplasty Hip, pelvis, or leg fracture Acute spinal cord injury (< 1 month) Prophylaxis Regimen Total Risk Factor Score Risk Level Prophylaxis Regimen 0-1 Low Early ambulation 2 Moderate Order ONE of the following: *Sequential Compression Device (SCD) *Heparin 5000 units SQ BID 3-4 Higher Order ONE of the following medications: *Heparin 5000 units SQ TID *Enoxaparin/Lovenox 40 mg SQ daily (WT < 150 kg, CrCl > 30 mL/min) *Enoxaparin/Lovenox 30 mg SQ daily (WT < 150 kg, CrCl > 10-29 mL/min) *Enoxaparin/Lovenox 30 mg SQ BID (WT < 150 kg, CrCl > 30 mL/min) AND/OR *Sequential Compression Device (SCD) 5 or more Highest Order ONE of the following medications: *Heparin 5000 units SQ TID (Preferred with Epidurals) *Enoxaparin/Lovenox 40 mg SQ daily (WT < 150 kg, CrCl > 30 mL/min) *Enoxaparin/Lovenox 30 mg SQ daily (WT < 150 kg, CrCl > 10-29 mL/min) *Enoxaparin/Lovenox 30 mg SQ BID (WT < 150 kg, CrCl > 30 mL/min) AND *Sequential Compression Device (SCD) Assessment and Plan Problem List: (1) Chest pain ICD Code: R07.9 - Chest pain, unspecified Status: Acute Plan: Rule out ACS versus musculoskeletal cause versus unknown etiology Patient has been admitted to the chest pain center under observation. Serial EKGs and serial troponins have been ordered for ruling out ACS purposes. Cardiac enzymes flat. EKG reviewed showing controlled atrial fibrillation. No ST changes to indicate ischemia. ACS ruled out. Chest pain has now resolved wit Toradol. Chest x-ray reviewed showing borderline prominent heart. Lungs are clear. Patient does follow with Dr. Ramos, cardiology, and underwent a stress test less than 1 year ago which was reportedly negative. Patient has also been followed for his hypertension and high cholesterol, echocardiogram was done 2 months ago which was reportedly negative. Patient is appropriately anticoagulated on Coumadin. feather trimmer reviewed overnight, no acute arrhythmias. Controlled atrial fibrillation. Patient does have chest pain to palpation, relieved with Toradol. Patient desiring to be discharged and follow- up with Dr. Ramos in the outpatient setting. Dr. Ramos has been updated about patient arrival and admission and will see him in his office this week. (2) Atrial fibrillation ICD Code: I48.91 - Unspecified atrial fibrillation Status: Chronic Plan: Controlled. Appropriately anticoagulated on Coumadin. Continue. Follow INR. Carina Boswell June 15, 2017 08:13
[2017-06-15] MEDS ORDERED: KETOROLAC TROMETHAMINE 30 MG/ML (IVP) VIAL IV PUSH ONE (08:15)
[2017-06-15] MEDS ORDERED: POTASSIUM CHLORIDE 10 MEQ CONTROLLED RELEASE TAB PO ONE (08:15)
--- NOTE | 2017-06-15 08:21 | HHI.DCPOC ---
Discharge Care Plan Diagnosis: (1) Chest pain (2) Atrial fibrillation Goals to Promote Your Health * To prevent worsening of your condition and complications * To maintain your health at the optimal level Directions to Meet Your Goals Take your medications as prescribed Follow your dietary instruction Follow activity as directed Keep your appointments as scheduled Take your immunizations and boosters as scheduled If your symptoms worsen call your PCP, if no PCP go to Urgent Care Center or Emergency Room Smoking is Dangerous to Your Health. Avoid second hand smoke Call the 24-hour hour crisis hotline for domestic abuse at Carina Boswell June 15, 2017 08:21
--- NOTE | 2017-06-15 08:25 | EKG ---
Date Performed: 06/15/2017 Time Performed: 06:11:29 PTAGE: 72 years EKG: ATRIAL FIBRILLATION WITH ABERRANT CONDUCTION OR VENTRICULAR PREMATURE COMPLEXES LOW QRS VOL TAGE IN EXTREMITY LEADS NONSPECIFIC T-WAVE ABNORMALITY ABNORMAL RHYTHM ECG No significant change from prior electrocardiogram. PREVIOUS TRACING : 06/15/2017 03.18 DOCTOR: Alok Dwyer Interpretating Date/Time 06/15/2017 08:25:21
--- NOTE | 2017-06-15 08:28 | EKG ---
Date Performed: 06/15/2017 Time Performed: 03:18:22 PTAGE: 72 years EKG: ATRIAL FIBRILLATION WITH ABERRANT CONDUCTION OR VENTRICULAR PREMATURE COMPLEXES LOW QRS VOL TAGE IN EXTREMITY LEADS NONSPECIFIC ST & T-WAVE ABNORMALITY ABNORMAL ECG No significant change from p rior electrocardiogram. PREVIOUS TRACING : 12/25/2016 04.18 DOCTOR: Alok Dwyer Interpretating Date/Time 06/15/2017 08:27:00
[2017-06-15] MEDS ORDERED: cloNIDine HCL 0.1 MG TAB PO SCH (09:00)
[2017-06-15] MEDS ORDERED: LISINOPRIL 5 MG TAB PO SCH (09:00)
[2017-06-15] MEDS ORDERED: SODIUM CHLORIDE 0.9% FLUSH 10 ML FLUSH IV FLUSH SCH (09:00)
[2017-06-15] MEDS ORDERED: ASPIRIN 325 MG TAB PO SCH (09:00)
[2017-06-15] MEDS ORDERED: NIFEdipine 60 MG SUSTAINED RELEASE TAB PO SCH (09:00)
[2017-06-15] MEDS ORDERED: ATORVASTATIN 40 MG TAB PO SCH (09:00)
[2017-06-15 09:12] LABS: TROPONIN I LESS THAN 0.02 NG/ML (0.02-0.05)
--- NOTE | 2017-06-15 15:18 | EKG ---
Date Performed: 06/15/2017 Time Performed: 08:34:10 PTAGE: 72 years EKG: ATRIAL FIBRILLATION WITH ABERRANT CONDUCTION OR VENTRICULAR PREMATURE COMPLEXES LOW QRS VOL TAGE IN EXTREMITY LEADS SEPTAL MYOCARDIAL INFARCTION ABNORMAL ECG No significant change from prior el ectrocardiogram. PREVIOUS TRACING : 06/15/2017 06.11 DOCTOR: Alok Dwyer Interpretating Date/Time 06/15/2017 15:17:44
[2017-06-15] MEDS ORDERED: WARFARIN SOD 5 MG TAB PO SCH ×2 (16:00)
[2017-06-15] MEDS ORDERED: TAMSULOSIN HCL 0.4 MG CAP PO SCH (21:00)
== END 2017-06-15 12:11 | disposition home or self-care (01) ==
LOC: PHED 03:08 → PHEDA 04:22 → PH3A 06:22
PROVIDERS: ADMIT Hospitalist; ATTEND Hospitalist
DX: R07.89 Other chest pain (principal); I48.2 Chronic atrial fibrillation; D72.828 Other elevated white blood cell count; I10 Essential (primary) hypertension; J45.909 Unspecified asthma, uncomplicated; E78.00 Pure hypercholesterolemia, unspecified; E11.9 Type 2 diabetes mellitus without complications; R94.31 Abnormal electrocardiogram [ECG] [EKG]; G47.30 Sleep apnea, unspecified; F40.240 Claustrophobia; M16.12 Unilateral primary osteoarthritis, left hip; N40.0 Benign prostatic hyperplasia without lower urinary tract symptoms; F17.210 Nicotine dependence, cigarettes, uncomplicated; Z79.899 Other long term (current) drug therapy; Z79.84 Long term (current) use of oral hypoglycemic drugs; Z79.01 Long term (current) use of anticoagulants
CPT/HCPCS: 71045; 80053; 82550; 82948; 83690; 83880; 84484; 85025; 85610; 85730; 93005; 96361; 96374; 99285; G0378; J1885; J7030

== ENCOUNTER 2017-07-04 17:44 | Emergency (ER) | payer MEDICARE ==
[~2017-07-04] VITALS: Ht 190.5 cm; Wt 114.0 kg
[~2017-07-04 17:44] MED LIST changes: +COUM2.5T PO
[2017-07-04 17:52] VITALS: BP 153/96; PULSE 82; RESP 16; TEMP 98.7; O2SAT 96
[2017-07-04] MEDS ORDERED: SODIUM CHLORIDE 0.9% FLUSH 10 ML FLUSH IV FLUSH PRN (19:15)
--- NOTE | 2017-07-04 19:21 | PD ---
HPI Chief Complaint: GI Complaint Time Seen by Provider: 18:20 Travel History International Travel<30 days: No Contact w/Intl Traveler<30days: No Traveled to known affect area: No History of Present Illness HPI Patient presents to the emergency department complaint of constipation 4-5 days. Does take narcotic pain medication but he is unable provide the name with certainty, thinks it's lortab. He's taken laxatives in the past with some success and he took a laxative today around 1 PM but has not been able to move his bowels. He is passing flatus, and denies nausea, vomiting, abdominal pain, fever, chills, dysuria. PFSH Past Medical History Hx Anticoagulant Therapy: Yes (COUMADIN) Arthritis: Yes (L HIP) Asthma: Yes Atrial Fibrillation: Yes Autoimmune Disease: No Blood Disorders: No Anxiety: No Depression: No Heart Rhythm Problems: Yes (A FIB) Cancer: No Cardiac Catheterization: No Cardiovascular Problems: Yes (HTN, A Fib ) High Cholesterol: Yes Chemotherapy: No Chest Pain: Yes Congestive Heart Failure: No COPD: No Cerebrovascular Accident: No Diabetes: Yes Patient Takes Glucophage: Yes Diminished Hearing: No Endocrine: Yes Gastrointestinal Disorders: No Glaucoma: No Gout: Yes Genitourinary: Yes Headaches: No Heparin Induced Thrombocytopen: No Hypertension: Yes Immune Disorder: No Implanted Vascular Access Dvce: No Kidney Stones: Yes Musculoskeletal: Yes Neurologic: No Psychiatric: No Reproductive: No Respiratory: Yes Myocardial Infarction: No Radiation Therapy: No Renal Failure: No Seizures: No Sickle Cell Disease: No Sleep Apnea: No Thyroid Disease: No Past Surgical History Abdominal Surgery: No AICD: No Cardiac Surgery: No Coronary Artery Bypass Graft: No Ear Surgery: No Endocrine Surgery: No Eye Surgery: No Genitourinary Surgery: Yes (KIDNEY STONE REMOVAL) Gynecologic Surgery: No Insulin Pump: No Neurologic Surgery: No Oral Surgery: No Pacemaker: No Thoracic Surgery: No Other Surgery: Yes ( THROAT POLYPS 1982) Social History Alcohol Use: No Tobacco Use: Yes (2-3 cigs qd) Substance Use: No Allergies-Medications (Allergen,Severity, Reaction): Coded Allergies: No Known Allergies (Verified Adverse Reaction, Unknown, 07/04/17) Reported Meds & Prescriptions Reported Meds & Active Scripts Active Reported Coumadin (Warfarin) 2.5 Mg Tab 2.5 Mg PO MON, WED, WED Glyburide 5 Mg Tab 5 Mg PO DAILY Take with meals at the same time each day Byetta Inj (Exenatide) 10 Mcg/0.04 Ml Pfpen 10 Mcg SQ BID Use within 60 minutes before the two main meals of the day. Flomax (Tamsulosin HCl) 0.4 Mg Cap 0.4 Mg PO HS Warfarin 5 Mg Tab 5 Mg PO DAILY Adalat CC (Nifedipine) 60 Mg Tab 60 Mg PO DAILY Metformin (Metformin HCl) 1,000 Mg Tab 1,500 Mg PO HS With meals Metformin (Metformin HCl) 1,000 Mg Tab 1,000 Mg PO DAILY With a meal Lisinopril 5 Mg Tab 5 Mg PO DAILY Catapres (Clonidine) 0.1 Mg Tab 0.1 Mg PO TID Lipitor (Atorvastatin Calcium) 40 Mg Tab 40 Mg PO DAILY Review of Systems Except as stated in HPI: all other systems reviewed are Neg Physical Exam Narrative GENERAL: No acute distress. SKIN: Focused skin assessment warm/dry. HEAD: Atraumatic. Normocephalic. EYES: Extra ocular muscles intact bilateral. No scleral icterus. No injection or drainage. ENT: No nasal bleeding or discharge. Mucous membranes pink and moist. NECK: Trachea midline. No JVD. CARDIOVASCULAR: Regular rate and rhythm. No murmur appreciated. RESPIRATORY: No accessory muscle use. Clear to auscultation. Breath sounds equal bilaterally. GASTROINTESTINAL: Abdomen soft, non-tender, obese. Hepatic and splenic margins not palpable. Rectal: Brown, soft stool. MUSCULOSKELETAL: No obvious deformities. No clubbing. No cyanosis. No edema. NEUROLOGICAL: Awake and alert. No obvious cranial nerve deficits. Motor grossly within normal limits. Normal speech. PSYCHIATRIC: Appropriate mood and affect; insight and judgment normal. Data Data Last Documented VS Vital Signs Date Time Temp Pulse Resp B/P (MAP) Pulse Ox O2 Delivery O2 Flow Rate FiO2 07/04/17 17:52 98.7 82 16 153/96 (115) 96 Orders Orders Complete Blood Count With Diff (07/04/17 19:02) Comprehensive Metabolic Panel (07/04/17 19:02) Abdomen, Flat & Upright (07/04/17 ) Iv Access Insert/Monitor (07/04/17 19:02) Ecg Monitoring (07/04/17 19:02) Oximetry (07/04/17 19:02) Sodium Chloride 0.9% Flush (Ns Flush) (07/04/17 19:15) Bisacodyl Supp (Dulcolax Supp) (07/04/17 19:45) Fleets Enema (Adult) (Fleets Enema (Adul (07/04/17 19:45) Labs Laboratory Tests Test 07/04/17 18:09 White Blood Count 12.2 TH/MM3 Red Blood Count 4.41 MIL/MM3 Hemoglobin 13.0 GM/DL Hematocrit 39.0 % Mean Corpuscular Volume 88.4 FL Mean Corpuscular Hemoglobin 29.6 PG Mean Corpuscular Hemoglobin Concent 33.5 % Red Cell Distribution Width 13.4 % Platelet Count 254 TH/MM3 Mean Platelet Volume 9.6 FL Neutrophils (%) (Auto) 70.7 % Lymphocytes (%) (Auto) 16.1 % Monocytes (%) (Auto) 6.8 % Eosinophils (%) (Auto) 4.6 % Basophils (%) (Auto) 1.8 % Neutrophils # (Auto) 8.6 TH/MM3 Lymphocytes # (Auto) 2.0 TH/MM3 Monocytes # (Auto) 0.8 TH/MM3 Eosinophils # (Auto) 0.6 TH/MM3 Basophils # (Auto) 0.2 TH/MM3 CBC Comment DIFF FINAL Differential Comment Blood Urea Nitrogen 19 MG/DL Creatinine 0.95 MG/DL Random Glucose 111 MG/DL Total Protein 7.7 GM/DL Albumin 3.7 GM/DL Calcium Level 9.1 MG/DL Aspartate Amino Transf (AST/SGOT) 25 U/L Alanine Aminotransferase (ALT/SGPT) 26 U/L Total Bilirubin 0.5 MG/DL Sodium Level 138 MEQ/L Potassium Level 4.4 MEQ/L Chloride Level 107 MEQ/L Carbon Dioxide Level 23.6 MEQ/L Anion Gap 7 MEQ/L Estimat Glomerular Filtration Rate 77 ML/MIN MDM Medical Decision Making Medical Screen Exam Complete: Yes Emergency Medical Condition: Yes Differential Diagnosis Constipation, fecal impaction, bowel obstruction Narrative Course He presents to the emergency department complaining of constipation. Placed on the monitor, IV access obtained, labs and x-ray ordered. On my rectal exam I was able to remove a small amount of stool, and patient felt like he can have a bowel movement. But he was unable to move his bowels but he went to the restroom. I have written for Dulcolax suppository to be given in the emergency department. 1932: Patient sent out to Dr. Velázquez for x-ray results and labs and final dispo. Merissa Cabello MD July 04, 2017 19:21
[2017-07-04 19:31] LABS: AUTOMATED NEUTROPHIL # 8.6 TH/MM3 (1.8-7.7); BASOPHIL # 0.2 TH/MM3 (0-0.2); BASOPHIL % 1.8 % (0.0-2.0); EOSINOPHIL # 0.6 TH/MM3 (0-0.4); EOSINOPHIL % 4.6 % (0.0-4.0); LYMPH % 16.1 % (9.0-44.0); MEAN CELL VOLUME 88.4 FL (80.0-100.0); MEAN CORPUSCULAR HEMOGLOBIN 29.6 PG (27.0-34.0); MEAN CORPUSCULAR HGB CONC 33.5 % (32.0-36.0); MEAN PLATELET VOLUME 9.6 FL (7.0-11.0); MONO % 6.8 % (0.0-8.0); MONOCYTE # 0.8 TH/MM3 (0-0.9); NEUT % 70.7 % (16.0-70.0); PLATELET COUNT 254 TH/MM3 (150-450); RED BLOOD COUNT 4.41 MIL/MM3 (4.50-5.90); RED CELL DISTRIBUTION WIDTH 13.4 % (11.6-17.2); WHITE BLOOD COUNT 12.2 TH/MM3 (4.0-11.0)
--- NOTE | 2017-07-04 19:35 | RADRPT ---
EXAM DATE/TIME: 07/04/2017 19:09 [facility] COMPARISON: No previous studies available for comparison. INDICATIONS : Constipation MEDICAL HISTORY : None. SURGICAL HISTORY : None. ENCOUNTER: Initial ACUITY: 3 days PAIN SCORE: 0/10 LOCATION: Abdomen FINDINGS: Supine and upright views of the abdomen were performed. No dilated loops of bowel. No air fluid level s are seen. No abnormal calcification is seen. The visualized lower lungs are clear. No evidence o f free intraperitoneal gas. The osseous structures are unremarkable. CONCLUSION: 1. Nonobstructive bowel gas pattern. Bang Stratton MD on July 04, 2017 at 19:33 Board Certified Radiologist. This report was verified electronically.
[2017-07-04 19:40] LABS: CHLORIDE 107 MEQ/L (98-107); SODIUM (NA) 138 MEQ/L (136-145)
[2017-07-04 19:43] LABS: ALBUMIN 3.7 GM/DL (3.4-5.0); BICARBONATE 23.6 MEQ/L (21.0-32.0); BLOOD UREA NITROGEN 19 MG/DL (7-18); CALCIUM 9.1 MG/DL (8.5-10.1); GLUCOSE,RANDOM 111 MG/DL (74-106)
[2017-07-04] MEDS ORDERED: BISACODYL 10 MG SUPP RECTAL ONE (19:45)
[2017-07-04] MEDS ORDERED: SOD PHOSPHATE/SOD BIPHOSPHATE (ADULT) ENEMA 133ML RECTAL ONE (19:45)
[2017-07-04 19:46] LABS: ALT (GPT) 26 U/L (12-78); AST (GOT) 25 U/L (15-37); CREATININE 0.95 MG/DL (0.60-1.30); GLOMERULAR FILTRATION RATE 77 ML/MIN (>89)
[2017-07-04 19:48] LABS: TOTAL BILIRUBIN ADULT 0.5 MG/DL (0.2-1.0); TOTAL PROTEIN 7.7 GM/DL (6.4-8.2)
[2017-07-04 19:49] LABS: ALKALINE PHOSPHATASE 70 U/L (45-117)
--- NOTE | 2017-07-04 19:55 | PD ---
Physical Exam Date Seen by Provider: July 04, 2017 Time Seen by Provider: 19:53 Narrative Accepted in transfer of care from Dr. Cabello GENERAL: Well-developed well-nourished male no acute distress no respiratory distress NECK: Supple, trachea midline. No JVD or lymphadenopathy. CARDIOVASCULAR: Regular rate and rhythm without murmurs, gallops, or rubs. RESPIRATORY: Breath sounds equal bilaterally. No accessory muscle use. GASTROINTESTINAL: Abdomen soft, non-tender, no guarding no rebound, nondistended. Data Data Last Documented VS Vital Signs Date Time Temp Pulse Resp B/P (MAP) Pulse Ox O2 Delivery O2 Flow Rate FiO2 07/04/17 17:52 98.7 82 16 153/96 (115) 96 Orders Orders Complete Blood Count With Diff (07/04/17 19:02) Comprehensive Metabolic Panel (07/04/17 19:02) Abdomen, Flat & Upright (07/04/17 ) Iv Access Insert/Monitor (07/04/17 19:02) Ecg Monitoring (07/04/17 19:02) Oximetry (07/04/17 19:02) Sodium Chloride 0.9% Flush (Ns Flush) (07/04/17 19:15) Bisacodyl Supp (Dulcolax Supp) (07/04/17 19:45) Fleets Enema (Adult) (Fleets Enema (Adul (07/04/17 19:45) Ed Discharge Order (07/04/17 20:24) Labs Laboratory Tests Test 07/04/17 18:09 White Blood Count 12.2 TH/MM3 Red Blood Count 4.41 MIL/MM3 Hemoglobin 13.0 GM/DL Hematocrit 39.0 % Mean Corpuscular Volume 88.4 FL Mean Corpuscular Hemoglobin 29.6 PG Mean Corpuscular Hemoglobin Concent 33.5 % Red Cell Distribution Width 13.4 % Platelet Count 254 TH/MM3 Mean Platelet Volume 9.6 FL Neutrophils (%) (Auto) 70.7 % Lymphocytes (%) (Auto) 16.1 % Monocytes (%) (Auto) 6.8 % Eosinophils (%) (Auto) 4.6 % Basophils (%) (Auto) 1.8 % Neutrophils # (Auto) 8.6 TH/MM3 Lymphocytes # (Auto) 2.0 TH/MM3 Monocytes # (Auto) 0.8 TH/MM3 Eosinophils # (Auto) 0.6 TH/MM3 Basophils # (Auto) 0.2 TH/MM3 CBC Comment DIFF FINAL Differential Comment Blood Urea Nitrogen 19 MG/DL Creatinine 0.95 MG/DL Random Glucose 111 MG/DL Total Protein 7.7 GM/DL Albumin 3.7 GM/DL Calcium Level 9.1 MG/DL Alkaline Phosphatase 70 U/L Aspartate Amino Transf (AST/SGOT) 25 U/L Alanine Aminotransferase (ALT/SGPT) 26 U/L Total Bilirubin 0.5 MG/DL Sodium Level 138 MEQ/L Potassium Level 4.4 MEQ/L Chloride Level 107 MEQ/L Carbon Dioxide Level 23.6 MEQ/L Anion Gap 7 MEQ/L Estimat Glomerular Filtration Rate 77 ML/MIN [facility] Medical Record Reviewed: Yes Supervised Visit with BRAVO: No Interpretation(s) Last Impressions Abdomen X-Ray 07/04/17 0000 Signed Impressions: Service Date/Time: Tuesday, July 04, 2017 19:09 - CONCLUSION: 1. Nonobstructive bowel gas pattern. Bang Stratton MD CBC & BMP Diagram 07/04/17 18:09 Total Protein 7.7, Albumin 3.7, Calcium Level 9.1, Alkaline Phosphatase 70, Aspartate Amino Transf (AST/SGOT) 25, Alanine Aminotransferase (ALT/SGPT) 26, Total Bilirubin 0.5 Vital Signs Date Time Temp Pulse Resp B/P (MAP) Pulse Ox O2 Delivery O2 Flow Rate FiO2 07/04/17 17:52 98.7 82 16 153/96 (115) 96 Differential Diagnosis Accepted transfer of care from Dr. Cabello; please refer to her dictation Narrative Course Accepted in transfer of care from Dr. Cabello for follow-up of pending labs imaging study and result of administered suppository Nurse reports that patient is requesting enema instead of suppository suppository cancelled and ordered changed to Fleet Enema Patient with BM after fleets enema; stool Hemoccult negative. Feels improved requests to go home; stable for outpatient management and follow-up with his primary care provider. HemaPrompt Test Point of Care Internal Pos. & Neg. Controls: Passed Fecal Specimen Occult Blood: Negative Diagnosis Primary Impression: Constipation due to pain medication Referrals: Primary Care Physician call for appointment Patient Instructions: General Instructions Additional Instruction: Decrease use of pain medication as tolerated increase fluid hydration may add MirLax to bowel regimen and dietary fiber intake Monitor temperature every 4 hours with thermometry take as needed acetaminophen/ Tylenol for fever 100.4F or greater return to the ED for any concerns or change in condition; fever or pain follow up with your doctor call office for appointment Disposition: 01 DISCHARGE HOME Condition: Stable Tiffany Velázquez MD July 04, 2017 19:55
[2017-07-04 20:47] VITALS: BP 131/82
== END 2017-07-04 20:49 | disposition home or self-care (01) ==
LOC: PHED 17:44
DX: K59.00 Constipation, unspecified (principal); Z79.01 Long term (current) use of anticoagulants; J45.909 Unspecified asthma, uncomplicated; I48.91 Unspecified atrial fibrillation; E78.00 Pure hypercholesterolemia, unspecified; E11.9 Type 2 diabetes mellitus without complications; I10 Essential (primary) hypertension; F17.200 Nicotine dependence, unspecified, uncomplicated
CPT/HCPCS: 74019; 80053; 85025; 99284

== ENCOUNTER 2018-02-02 02:00 | Observation (INO) ==
[2018-02-02 02:49] LABS: Baso % (Auto) 0.2 % (0.0-2.0); Eos # (Auto) 0.1 th/mm3 (0.0-0.4); Eos % (Auto) 0.5 % (0.0-4.0); Hematocrit 32.4 % (39.0-51.0); Hemoglobin 10.8 gm/dL (13.0-17.0); Lymph # (Auto) 1.5 th/mm3 (1.0-4.8); Lymph % (Auto) 9.8 % (9.0-44.0); Mean Corpuscular HGB Conc 33.4 % (32.0-36.0); Mean Corpuscular Hemoglobin 30.5 pg (27.0-34.0); Mean Corpuscular Volume 91.5 fL (80.0-100.0); Mean Platelet Volume 7.9 fL (7.0-11.0); Mono # (Auto) 0.7 th/mm3 (0.0-0.9); Mono % (Auto) 4.8 % (0.0-8.0); Neut # (Auto) 12.9 th/mm3 (1.8-7.7); Neut % (Auto) 84.7 % (16.0-70.0); Platelet Count 246 th/mm3 (150-450); Red Blood Count 3.55 mil/mm3 (4.50-5.90); White Blood Count 15.2 th/mm3 (4.0-11.0)
--- NOTE | 2018-02-02 02:49 | ED ---
HPI General Chief Complaint: Respiratory Symptoms Stated Complaint: gasping for air when falling asleep Time Seen by Provider: 02/02/18 02:17 Source: patient Mode of arrival: ambulatory Limitations: no limitations History of Present Illness Shortness of breath when going to sleep Was seen yesterday for hypoglycemia MD Complaint: Reports shortness of breath Onset (ago): minute(s) Context: Denies recent illness and choking/aspiration Severity: moderate Consistency/Duration: now resolved Relieving factors: other (Sitting up) Exacerbating factors: lying flat Known history of: Reports diabetes; Denies COPD, PE and DVT Associated symptoms: Reports denies other symptoms Treatment prior to arrival: Reports none Related Data Home Medications Medication Instructions Recorded Confirmed clonidine HCl 0.2 mg PO TID 01/17/18 02/02/18 exenatide [Byetta] 10 mcg SUBCUT BID 01/17/18 02/02/18 hydrocodone-acetaminophen 1 tab PO Q4H PRN 01/17/18 02/02/18 lisinopril 20 mg PO DAILY 01/17/18 02/02/18 metformin 1,000 mg PO BID 01/17/18 02/02/18 nifedipine [Adalat CC] 60 mg PO DAILY 01/17/18 02/02/18 tamsulosin [Flomax] 0.4 mg PO DAILY 01/17/18 02/02/18 warfarin 2.5 mg PO 3XW 01/17/18 02/02/18 warfarin 5 mg PO 4XW 01/17/18 02/02/18 rosuvastatin 20 mg PO DAILY 01/19/18 02/02/18 Allergies Allergy/AdvReac Type Severity Reaction Status Date / Time No Known Allergies Allergy Verified 02/02/18 02:15 Review of Systems ROS: all other systems reviewed are negative Cardiovascular Denies chest pain Musculoskeletal Denies neck pain [facility] Medical History Medical History Arthritis (Acute) Atrial fibrillation (Acute) Diabetes (Acute) Enlarged prostate (Acute) [place] (hard of hearing) (Acute) Hypertension (Acute) Reflux gastritis (Acute) Social History Social History Substance History: No History of Abuse Second Hand Smoke Exposure: No Smoking Status: Former smoker Tobacco Type: Cigarettes How Often Do You Have a Drink Containing Alcohol: 2 to 4 times a month Recent Travel in [facility] within the Last 8 Weeks: No Recent Out of Country Travel within the Last 8 Weeks: No Immunization History Tetanus Immunization: Unsure Exam Narrative Exam Narrative: NONTOXIC PERRL, EOMI NO JVD NON LABORED RESPIRATIONS, equal bilateral iREGULAR RHYTHM SOFT NON TENDER PELVIS STABLE FROM EXTREMITIES NO LOWER EXTREMITY PITTING EDEMA FACIAL SYMMETRY STEADY GAIT, CLEAR SENTENCES AAOX3 Course Reevaluation(s) Reevaluation #1: d/w dylon andrea to admit/assume care Hemodynamically stable with no signs of acute airway compromise Hypotension secondary medications? Prerenal with elevated troponin/no chest pain Time: 03:40 Initial Documented Vital Signs Temperature 97.4 F L 02/02/18 02:05 Pulse Rate 91 H 02/02/18 02:05 Respiratory Rate 20 02/02/18 02:05 Blood Pressure 95/62 L 02/02/18 02:05 Pulse Oximetry 99 02/02/18 02:05 Last Documented Vital Signs Temperature 97.4 F L 02/02/18 02:05 Pulse Rate 86 02/02/18 02:24 Respiratory Rate 18 02/02/18 02:24 Blood Pressure 92/59 L 02/02/18 02:24 Pulse Oximetry 97 02/02/18 02:46 Medical Decision Making [facility] Narrative Medical Screen Exam Complete: Yes Emergency Medical Condition: Yes Lab Data Result diagrams: 02/02/18 02:30 02/02/18 02:30 Lab Results 02/02/18 02/02/18 02/02/18 Range/Units 02:30 02:30 02:30 CBC w Diff Auto diff final WBC 15.2 H (4.0-11.0) th/mm3 RBC 3.55 L (4.50-5.90) mil/mm3 Hgb 10.8 L (13.0-17.0) gm/dL Hct 32.4 L (39.0-51.0) % MCV 91.5 (80.0-100.0) fL MCH 30.5 (27.0-34.0) pg MCHC 33.4 (32.0-36.0) % RDW 13.0 (11.6-17.2) % Plt Count 246 (150-450) th/mm3 MPV 7.9 (7.0-11.0) fL Neut % (Auto) 84.7 H (16.0-70.0) % Lymph % (Auto) 9.8 (9.0-44.0) % [place] % (Auto) 4.8 (0.0-8.0) % Eos % (Auto) 0.5 (0.0-4.0) % Baso % (Auto) 0.2 (0.0-2.0) % Neut # (Auto) 12.9 H (1.8-7.7) th/mm3 Lymph # (Auto) 1.5 (1.0-4.8) th/mm3 [place] # (Auto) 0.7 (0.0-0.9) th/mm3 Eos # (Auto) 0.1 (0.0-0.4) th/mm3 Baso # (Auto) 0.0 (0.0-0.2) th/mm3 WBC Differential . Differential Comment . Sodium 135 L (136-145) meq/L Potassium 3.8 (3.5-5.1) meq/L Chloride 100 (98-107) meq/L Carbon Dioxide 19.1 L (21.0-32.0) meq/L Anion Gap 16 H (5-15) meq/L BUN 22 H (7-18) mg/dL Creatinine 1.80 H (0.60-1.30) mg/dL Estimated GFR 37 L (>89) mL/min Random Glucose 196 H (74-106) mg/dL Calcium 7.8 L (8.5-10.1) mg/dL Troponin I 0.41 H (0.02-0.05) ng/mL B-Natriuretic Peptide 739 H (0-100) pg/mL Imaging Data Radiologist's impression: Chest X-Ray 02/02/18 02:23 CONCLUSION: Cardiomegaly. No acute cardiopulmonary disease ECG Data Attestation: I personally reviewed and interpreted this ECG as follows: (Atrial fib with PVC) Discharge Plan Discharge Disposition Patient Disposition: ED Admit(ED Internal Use Only) Discharge Condition Condition: Stable Discharge Details Diagnosis: Acute dehydration, Acute kidney injury Physicians Team ED Provider: Hoang Acosta Primary Care Provider: Ap Sexton Rxs /Orders / Referrals /Forms Prescriptions: No Action nifedipine [Adalat CC] 60 mg Tablet Extended Release 60 mg PO DAILY RF: 0 clonidine HCl 0.2 mg Tablet 0.2 mg PO TID RF: 0 tamsulosin [Flomax] 0.4 mg Capsule 0.4 mg PO DAILY RF: 0 metformin 1,000 mg Tablet 1,000 mg PO BID RF: 0 lisinopril 20 mg Tablet 20 mg PO DAILY RF: 0 warfarin 2.5 mg Tablet 2.5 mg PO 3XW RF: 0 hydrocodone-acetaminophen 10-325 mg Tablet 1 tab PO Q4H PRN (Reason: Pain) RF: 0 warfarin 5 mg Tablet 5 mg PO 4XW RF: 0 exenatide [Byetta] 10 mcg/dose(250 mcg/mL) 2.4 mL Pen Injector 10 mcg SUBCUT BID RF: 0 rosuvastatin 20 mg Tablet 20 mg PO DAILY RF: 0 Discharge Interventions Interventions: Vital Signs Last Done: 02/02/18 03:40 Status ED Status: Pending Admission
[2018-02-02 02:55] LABS: Potassium 3.8 meq/L (3.5-5.1)
[2018-02-02 02:58] LABS: Calcium 7.8 mg/dL (8.5-10.1); Carbon Dioxide 19.1 meq/L (21.0-32.0)
--- NOTE | 2018-02-02 03:02 | XR ---
EXAM DATE: 02/02/2018 2:55 AM EST AGE/SEX: 73 years / Male INDICATIONS: Short of breath. CLINICAL DATA: This is the patient's initial encounter. Patient reports that signs and symptoms have been present for 1 day and indicates a pain score of 0/10. MEDICAL/SURGICAL HISTORY: None. None. COMPARISON: [facility], CHEST SINGLE AP, 06/15/2017. . FINDINGS: A single AP view of the chest demonstrates the lungs to be symmetrically aerated without evidence of mass, infiltrate or effusion. Cardiomegaly and increase in pulmonary vascularity. The cardiomediastin al contours are unremarkable. Osseous structures are intact. CONCLUSION: Cardiomegaly. No acute cardiopulmonary disease Electronically signed by: Monico Betancourt MD Board Certified Radiologist 02/02/2018 3:01 AM EST
[2018-02-02 03:06] LABS: Troponin I 0.41 ng/mL (0.02-0.05)
[2018-02-02 03:45] LABS: Activated Partial Thrombo Time 30.6 sec (23.4-31.7); INR 1.9 Ratio; Prothrombin Time 18.8 sec (9.8-11.6)
[2018-02-02] MEDS ORDERED: Heparin 10,000 UNITS/10 ML Vial (for IV use) IV.PUSH STA (04:12)
[2018-02-02] MEDS: Heparin Drip 25,000 UNIT/250 ML BAG IV.CONT PRN (04:31)
--- NOTE | 2018-02-02 06:34 | P.HP ---
History of Present Illness Service: [facility] hospitalist service: Dr. Taz Thomas Primary Care Physician: Ap Sexton MD History of Present Illness: HPI: 73-year-old white male who came early this morning because when he tried to fall asleep a few times this morning he would find himself gasping for air. He was fine as long as he was awake and sitting up. He denied any chest pain. He has no history of heart attack or angina. He had a nuclear medicine myocardial scan on 03/18/2016 that showed no ischemia but an EF of 42% with global hypokinesis prior 2D echocardiogram showed mild mitral regurgitation mild tricuspid regurgitation aortic sclerosis and a EF of 55-60%. He has been seeing Dr. Ramos for his atrial fibrillation and has been on warfarin therapy. He denies any history of lung disease. He did have a left total hip replacement on 01-21-18. He denies any calf pain. In the ED his troponin level was elevated at 0.41 and his BNP was 739. His creatinine was 1.8 and BUN 22 his hemoglobin was 10.8 but likely secondary to recent hip surgery. His WBC was 15.2. The ER physician gave him a baby aspirin and Plavix and put him on a heparin drip because of the elevated troponin level. His INR was slightly subtherapeutic at 1.9. A CTA of the chest was not done because of his elevated creatinine level. His oxygen saturations are normal and when I was talking to him he did not appear to be in any respiratory distress. He has had some slight swelling of both his feet but is not on any diuretic therapy. He is admitted for further evaluation with follow-up troponin levels and EKGs and cardiology consultation. 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 He is seeing Dr. Wilson (urologist) Atherosclerosis of the aorta 2D echocardiogram on 03/30/2017 showed pulmonary artery pressure 45.3 consistent with some mild pulmonary hypertension his EF was 55-60% 10 with mild mitral regurgitation and mild tricuspid regurgitation and mild aortic sclerosis. No history of angina or myocardial infarction History of renal calculi Carotid artery plaque noted bilaterally on 10-06-16 that was mild (<50%) No peptic ulcer disease No thyroid disease No stroke or seizures Osteoarthritis Surgical history: Removal of vocal cord polyps Left total hip replacement 01/21/2018 Allergies: None Medications: Clonidine 0.2 mg 3 times a day Byetta 10 mcg subcutaneous twice a day Hydrocodoneacetaminophen 10/325 1 tablet 4 times a day as needed since his hip replacement Lisinopril 20 mg 1 daily Metformin thousand milligrams twice a day Nifedipine extended release 60 mg daily Tamsulosin 0.4 mg p.o. daily Rosuvastatin 20 mg daily Warfarin 5 mg on Wednesday, Wednesday, Wednesday, and 2.5 mg on Wednesday, Wednesday, Wednesday Family history: His dad at age 75 of a stroke His mom at age 75 of cancer of the female organs Social history: Only occasionally has a drink of alcohol He quit smoking over 10 years ago and states he only smoked 2-3 cigarettes a day and only for 5 years - Diagnosis (1) Shortness of breath (2) Acute kidney injury (3) Elevated troponin (4) Chronic atrial fibrillation (5) Hyperlipidemia (6) Type 2 diabetes mellitus with diabetic nephropathy (7) Carotid artery plaque (8) BPH w urinary obs/LUTS (9) Hypertension (10) Pulmonary hypertension (11) Atherosclerosis of aorta Review of Systems Review of systems: General: No fever, chills, sweats. HEENT: No sore throat, runny nose, earache. Cardiovascular: No chest pain, heart palpitations, ? orthopnea. Pulmonary: No cough, hemoptysis, pleuritic chest pain. He had the episodes of trouble breathing as mentioned in the HPI Gastrointestinal: No nausea, vomiting, abdominal pain, heartburn, indigestion, diarrhea, constipation, melena, rectal bleeding. : He has a Leos catheter in place because of recent urinary retention Musculoskeletal: Recent left hip replacement Psychiatry: No significant anxiety or depression Extremities: He has had some slight edema Dermatology: No rash or itching Neuro: No headache, confusion, motor weakness, numbness or tingling PMFSH - History History Provided By: Patient - Medical History Medical History: Medical History (Last Reviewed 02/02/18 @ 02:48 by Hoang Acosta DO) Arthritis Atrial fibrillation Diabetes Enlarged prostate [place] (hard of hearing) Hypertension Reflux gastritis - Surgical History Surgical History: Surgical History (Last Reviewed 02/01/18 @ 12:35 by Casey Carrillo MD) Status post total hip replacement, left - Tobacco History Second Hand Smoke Exposure: No Tobacco Use In Past 30 Days: No Smoking Status: Former smoker Tobacco Type: Cigarettes - Alcohol History How Often Do You Have a Drink Containing Alcohol: Never - Substance Use History Substance History: No History of Abuse - Travel History Recent Travel in the [place] Within the Last 8 Weeks: No Recent Travel Out of the Country Within the Last 8 Weeks: No - Immunization History Tetanus Immunization: Unsure Medications and Allergies Active Medications: Active Medications Hydrocodone Bitart/Acetaminophen ([place] 10/325) 1 tab PO Q4H PRN PRN Reason: Pain Heparin Sodium/Dextrose (Heparin/D5w 25,000 U/250 Ml) 25,000 unit in 250 mls @ 0 mls/hr IV.CONT TITRATE PRN; Protocol PRN Reason: Per Protocol Last Admin: 02/02/18 04:31 Dose: 1,000 units/hr, 10 mls/hr Non-Formulary Medication (Metformin [Metformin]) 1,000 mg PO BID LOUISE Non-Formulary Medication (Rosuvastatin [Rosuvastatin]) 20 mg PO DAILY LOUISE Tamsulosin HCl (Flomax) 0.4 mg PO DAILY LOUISE Warfarin Sodium (Coumadin) 2.5 mg PO 3XW LOUISE Warfarin Sodium (Coumadin) 5 mg PO 4XW LOUISE Allergies Allergy/AdvReac Type Severity Reaction Status Date / Time No Known Allergies Allergy Verified 02/02/18 02:15 Home Medications Medication Instructions Recorded Confirmed Type clonidine HCl 0.2 mg PO TID 01/17/18 02/02/18 History exenatide [Byetta] 10 mcg SUBCUT BID 01/17/18 02/02/18 History hydrocodone-acetaminophen 1 tab PO Q4H PRN 01/17/18 02/02/18 History lisinopril 20 mg PO DAILY 01/17/18 02/02/18 History metformin 1,000 mg PO BID 01/17/18 02/02/18 History nifedipine [Adalat CC] 60 mg PO DAILY 01/17/18 02/02/18 History tamsulosin [Flomax] 0.4 mg PO DAILY 01/17/18 02/02/18 History warfarin 2.5 mg PO 3XW 01/17/18 02/02/18 History warfarin 5 mg PO 4XW 01/17/18 02/02/18 History rosuvastatin 20 mg PO DAILY 01/19/18 02/02/18 History Exam Vital signs: Vital Signs 02/02/18 02:05 02/02/18 02:24 02/02/18 02:46 Temperature 97.4 F L Pulse Rate 91 H 86 Respiratory Rate 20 18 Blood Pressure 95/62 L 92/59 L Pulse Oximetry 99 97 97 02/02/18 03:40 02/02/18 04:24 02/02/18 05:30 Temperature Pulse Rate 68 67 Respiratory Rate 18 18 Blood Pressure 90/66 L 95/59 L Pulse Oximetry 96 97 97 Intake & Output 02/01/18 02/01/18 02/02/18 06:59 18:59 06:59 Weight 112.2 kg Other: Weight On Admission 112.2 kg Narrative: PE: This is a pleasant white male in no distress. HEENT: Pupils equal, EOMs intact, sclera nonicteric, mouth without lesions, TMs intact, nose without lesions Neck: No JVD, neck is supple, no carotid bruit Heart: Slightly irregular rhythm without murmurs or gallops Lungs: Clear to auscultation Abdomen: Soft, nontender, no masses, no organomegaly : He has a Leos catheter in place Extremities: Trace to 1+ edema both ankles, pulses palpated, no calf tenderness Skin: Without lesions or rash Neuro: Alert, oriented, normal motor exam, sensation intact, cranial nerves intact Results - Labs CBC & Chem 7: 02/02/18 02:30 02/02/18 02:30 Labs: Laboratory Results - last 24 hr 02/02/18 02/02/18 02/02/18 02:30 02:30 02:30 CBC w Diff Auto diff final WBC 15.2 H RBC 3.55 L Hgb 10.8 L Hct 32.4 L MCV 91.5 MCH 30.5 MCHC 33.4 RDW 13.0 Plt Count 246 MPV 7.9 Neut % (Auto) 84.7 H Lymph % (Auto) 9.8 [place] % (Auto) 4.8 Eos % (Auto) 0.5 Baso % (Auto) 0.2 Neut # (Auto) 12.9 H Lymph # (Auto) 1.5 [place] # (Auto) 0.7 Eos # (Auto) 0.1 Baso # (Auto) 0.0 WBC Differential . Differential Comment . PT INR APTT Sodium 135 L Potassium 3.8 Chloride 100 Carbon Dioxide 19.1 L Anion Gap 16 H BUN 22 H Creatinine 1.80 H Estimated GFR 37 L Random Glucose 196 H Calcium 7.8 L Troponin I 0.41 H B-Natriuretic Peptide 739 H 02/02/18 02:30 CBC w Diff WBC RBC Hgb Hct MCV MCH MCHC RDW Plt Count MPV Neut % (Auto) Lymph % (Auto) [place] % (Auto) Eos % (Auto) Baso % (Auto) Neut # (Auto) Lymph # (Auto) [place] # (Auto) Eos # (Auto) Baso # (Auto) WBC Differential Differential Comment PT 18.8 H INR 1.9 APTT 30.6 Sodium Potassium Chloride Carbon Dioxide Anion Gap BUN Creatinine Estimated GFR Random Glucose Calcium Troponin I B-Natriuretic Peptide - Imaging Impressions Chest X-Ray 02/02/18 02:23 CONCLUSION: Cardiomegaly. No acute cardiopulmonary disease Caprini VTE Risk Assessment Caprini VTE Risk Assessment: Moderate/High Risk (score >= 2) Caprini Risk Assessment Model: Point Value = 1 Point Value = 2 Point Value = 3 Point Value = 5 Age 41-60 Minor surgery BMI > 25 kg/m2 Swollen legs Varicose veins or History of unexplained or recurrent spontaneous Oral contraceptives or hormone replacement Sepsis (< 1 month) Serious lung disease, including pneumonia (< 1 month) Abnormal pulmonary function Acute myocardial infarction Congestive heart failure (< 1 month) History of inflammatory bowel disease Medical patient at bed rest Age 61-74 Arthroscopic surgery Major open surgery (> 45 min) Laparoscopic surgery (> 45 min) Malignancy Confined to bed (> 72 hours) Immobilizing plaster cast Central venous access Age >= 75 History of VTE Family history of VTE Factor V Leiden Prothrombin [id number] Lupus anticoagulant Anticardiolipin antibodies Elevated serum homocysteine Heparin-induced thrombocytopenia Other congenital or acquired thrombophilia Stroke (< 1 month) Elective arthroplasty Hip, pelvis, or leg fracture Acute spinal cord injury (< 1 month) Prophylaxis Regimen: Total Risk Factor Score Risk Level Prophylaxis Regimen 0-1 Low Early ambulation 2 Moderate Order ONE of the following: *Sequential Compression Device (SCD) *Heparin 5000 units SQ BID 3-4 Higher Order ONE of the following medications: *Heparin 5000 units SQ TID *Enoxaparin/Lovenox 40 mg SQ daily (WT < 150 kg, CrCl > 30 mL/min) *Enoxaparin/Lovenox 30 mg SQ daily (WT < 150 kg, CrCl > 10-29 mL/min) *Enoxaparin/Lovenox 30 mg SQ BID (WT < 150 kg, CrCl > 30 mL/min) AND/OR *Sequential Compression Device (SCD) 5 or more Highest Order ONE of the following medications: *Heparin 5000 units SQ TID (Preferred with Epidurals) *Enoxaparin/Lovenox 40 mg SQ daily (WT < 150 kg, CrCl > 30 mL/min) *Enoxaparin/Lovenox 30 mg SQ daily (WT < 150 kg, CrCl > 10-29 mL/min) *Enoxaparin/Lovenox 30 mg SQ BID (WT < 150 kg, CrCl > 30 mL/min) AND *Sequential Compression Device (SCD) He is on Warfarin already Assessment and Plan - Assessment (1) Shortness of breath Code(s): R06.02 - Shortness of breath Status: Acute (2) Acute kidney injury Code(s): N17.9 - Acute kidney failure, unspecified Status: Acute (3) Elevated troponin Code(s): R74.8 - Abnormal levels of other serum enzymes Status: Acute (4) Chronic atrial fibrillation Code(s): I48.2 - Chronic atrial fibrillation Status: Chronic (5) Hyperlipidemia Code(s): E78.5 - Hyperlipidemia, unspecified Status: Chronic (6) Type 2 diabetes mellitus with diabetic nephropathy Code(s): E11.21 - Type 2 diabetes mellitus with diabetic nephropathy Status: Chronic (7) Carotid artery plaque Code(s): I65.29 - Occlusion and stenosis of unspecified carotid artery Status : Chronic (8) BPH w urinary obs/LUTS Code(s): N40.1 - Benign prostatic hyperplasia with lower urinary tract symptoms ; N13.8 - Other obstructive and reflux uropathy Status: Acute (9) Hypertension Code(s): I10 - Essential (primary) hypertension Status: Chronic (10) Pulmonary hypertension Code(s): I27.20 - Pulmonary hypertension, unspecified Status: Chronic (11) Atherosclerosis of aorta Code(s): I70.0 - Atherosclerosis of aorta Status: Chronic - Plan Plan: I will order a ventilation perfusion lung scan since his INR was 1.9 and to be certain he hip replacement. Cardiology will be consulted and I talked with Dr. Hughes about the patient. His initial thinking is that the troponin level is likely elevated due to his elevated kidney function. He will be given some gentle hydration to see if that will improve his kidney function. Hopefully that will help with his blood pressure also. I have held his routine blood pressure medications for now since his systolic reading has been below 100. He will be maintained on warfarin but he is currently on a heparin drip which I will stop after his VQ scan result is available. Repeat cardiac enzymes and EKG have been ordered. He will be maintained on a diabetic. We will recheck a CBC, BMP and BNP tomorrow. A 2D echocardiogram will be ordered to reassess his left ventricular function. I will also order Doppler venous ultrasound of both lower extremities because of the slight swelling and recent surgery. Code Status: Full code (7) Carotid artery plaque Qualifiers: Laterality: bilateral Qualified Code(s): I65.23 - Occlusion and stenosis of bilateral carotid arteries
[2018-02-02 07:20] LABS: Troponin I 0.39 ng/mL (0.02-0.05)
--- NOTE | 2018-02-02 08:11 | P.CONCA ---
History of Present Illness Primary Care Provider: Ap Sexton MD History of Present Illness: 73-year-old male with atrial fibrillation on warfarin, HTN, DM who presented with difficulty breathing. The patient states that when he was trying to sleep the night before admission every time he tried to lie down he would gasp for air , improved with sitting up and supplemental O2. The patient did have recent left hip surgery and has had left leg swelling although he says this is getting better, no right leg swelling. He is on warfarin for atrial fibrillation, INR 1.9 at admission, now started on heparin GTT for presumed DVT/PE. He denies any chest pain, palpitations, passing out. His EKG at admission showed rate controlled A. fib. Laboratory workup on admission showed multiple abnormalities including NICOLE, mild anion gap acidosis, elevated troponin, leukocytosis. Creatinine 1.8, previously baseline around 1. Troponins 0.41, 0.39. He reports he has been eating and drinking okay, has been belching a lot more. He denies any fever, chills, cough. His chest x-ray showed no acute process. He has been hypotensive and all of his home BP meds have been held. Previous echocardiogram 03/30/2017 showed pulmonary artery pressure 45.3 consistent with some mild pulmonary hypertension, EF was 55-60%, mild mitral regurgitation and mild tricuspid regurgitation and mild aortic sclerosis. He reportedly did not have pulmonary angiogram done because of renal insufficiency, and is ordered for VQ scan and lower extremity venous Doppler. Review of Systems All other systems reviewed negative except as stated in HPI [facility] - History History Provided By: Patient, Medical Record - Medical History Medical History: Medical History (Last Reviewed 02/02/18 @ 02:48 by Hoang Acosta DO) Arthritis Atrial fibrillation Diabetes Enlarged prostate RAMPART (hard of hearing) Hypertension Reflux gastritis - Surgical History Surgical History: Surgical History (Last Reviewed 02/01/18 @ 12:35 by Casey Carrillo MD) Status post total hip replacement, left - Tobacco History Second Hand Smoke Exposure: No Tobacco Use In Past 30 Days: No Smoking Status: Former smoker Tobacco Type: Cigarettes - Alcohol History How Often Do You Have a Drink Containing Alcohol: Never - Substance Use History Substance History: No History of Abuse - Travel History Recent Travel in the [facility] Within the Last 8 Weeks: No Recent Travel Out of the Country Within the Last 8 Weeks: No - Immunization History Tetanus Immunization: Unsure Medications and Allergies Allergies Allergy/AdvReac Type Severity Reaction Status Date / Time No Known Allergies Allergy Verified 02/02/18 02:15 Home Medications Medication Instructions Recorded Confirmed Type clonidine HCl 0.2 mg PO TID 01/17/18 02/02/18 History exenatide [Byetta] 10 mcg SUBCUT BID 01/17/18 02/02/18 History hydrocodone-acetaminophen 1 tab PO Q4H PRN 01/17/18 02/02/18 History lisinopril 20 mg PO DAILY 01/17/18 02/02/18 History metformin 1,000 mg PO BID 01/17/18 02/02/18 History nifedipine [Adalat CC] 60 mg PO DAILY 01/17/18 02/02/18 History tamsulosin [Flomax] 0.4 mg PO DAILY 01/17/18 02/02/18 History warfarin 2.5 mg PO 3XW 01/17/18 02/02/18 History warfarin 5 mg PO 4XW 01/17/18 02/02/18 History rosuvastatin 20 mg PO DAILY 01/19/18 02/02/18 History Active Medications: Active Medications Hydrocodone Bitart/Acetaminophen ([place] 10/325) 1 tab PO Q4H PRN PRN Reason: PAIN 1-10 Atorvastatin Calcium (Lipitor) 40 mg PO DAILY LOUISE Heparin Sodium/Dextrose (Heparin/D5w 25,000 U/250 Ml) 25,000 unit in 250 mls @ 0 mls/hr IV.CONT TITRATE PRN; Protocol PRN Reason: Per Protocol Last Admin: 02/02/18 04:31 Dose: 1,000 units/hr, 10 mls/hr Lorazepam (Ativan) 0.5 mg PO Q12H PRN PRN Reason: ANXIETY Metformin HCl (Glucophage) 1,000 mg PO BID LOUISE Tamsulosin HCl (Flomax) 0.4 mg PO DAILY LOUISE Warfarin Sodium (Coumadin) 2.5 mg PO 3XW LOUISE Warfarin Sodium (Coumadin) 5 mg PO 4XW LOUISE Exam Vital signs: Vital Signs 02/02/18 02:05 02/02/18 02:24 02/02/18 02:46 Temperature 97.4 F L Pulse Rate 91 H 86 Respiratory Rate 20 18 Blood Pressure 95/62 L 92/59 L Pulse Oximetry 99 97 97 12/19/18 03:40 02/02/18 04:24 02/02/18 05:30 Temperature Pulse Rate 68 67 Respiratory Rate 18 18 Blood Pressure 90/66 L 95/59 L Pulse Oximetry 96 97 97 Intake & Output 02/01/18 02/02/18 02/02/18 18:59 06:59 18:59 Intake Total 0 / 0 Balance 0 / 0 Weight 247 lb 5.738 oz Intake: Oral 0 / 0 Other: Weight On Admission 247 lb 5.738 oz Narrative: GENERAL: Well-developed well-nourished. Appears comfortable on 2 L nasal cannula and in no acute distress. NECK: No carotid bruits. No JVD. CARDIOVASCULAR: Regular rate and rhythm. No murmur appreciated. RESPIRATORY: No accessory muscle use. Clear to auscultation. Breath sounds equal bilaterally. MUSCULOSKELETAL: Right lower extremity with 1+ nonpitting edema and venous stasis skin changes. Left lower extremity with 3+ pitting edema. NEUROLOGICAL: Awake and alert. Normal speech. Results 02/02/18 02:30 02/02/18 02:30 Cardiac Enzymes 02/02/18 02/02/18 02/02/18 Range/Units 02:30 02:30 06:27 Troponin I 0.41 H 0.39 H (0.02-0.05) ng/mL B-Natriuretic Peptide 739 H (0-100) pg/mL Coagulation 02/02/18 02/02/18 Range/Units 02:30 02:30 PT 18.8 H (9.8-11.6) sec APTT 30.6 (23.4-31.7) sec B-Natriuretic Peptide 739 H (0-100) pg/mL CBC 02/02/18 Range/Units 02:30 WBC 15.2 H (4.0-11.0) th/mm3 RBC 3.55 L (4.50-5.90) mil/mm3 Hgb 10.8 L (13.0-17.0) gm/dL Hct 32.4 L (39.0-51.0) % Plt Count 246 (150-450) th/mm3 Neut # (Auto) 12.9 H (1.8-7.7) th/mm3 Lymph # (Auto) 1.5 (1.0-4.8) th/mm3 [place] # (Auto) 0.7 (0.0-0.9) th/mm3 Eos # (Auto) 0.1 (0.0-0.4) th/mm3 Baso # (Auto) 0.0 (0.0-0.2) th/mm3 Comprehensive Metabolic Panel 02/02/18 Range/Units 02:30 Sodium 135 L (136-145) meq/L Potassium 3.8 (3.5-5.1) meq/L Chloride 100 (98-107) meq/L Carbon Dioxide 19.1 L (21.0-32.0) meq/L BUN 22 H (7-18) mg/dL Creatinine 1.80 H (0.60-1.30) mg/dL Calcium 7.8 L (8.5-10.1) mg/dL Intake and Output 02/01/18 02/02/18 02/02/18 22:59 06:59 14:59 Intake Total 0 / 0 Balance 0 / 0 Intake: Oral 0 / 0 Other: Weight 247 lb 5.738 oz Weight On Admission 247 lb 5.738 oz - Imaging and Cardiology Imaging: Impressions Chest X-Ray 02/02/18 02:23 CONCLUSION: Cardiomegaly. No acute cardiopulmonary disease Assessment and Plan - Plan 73-year-old male with atrial fibrillation on warfarin, HTN, DM who presented with difficulty breathing Dyspnea: High clinical suspicion for PE, with current hypotension and outpatient resistant hypertension concern for possible massive or submassive PE with potential need for TPA. Recommend stat lower extremity venous Doppler and if positive then consider TPA with pulmonology/critical care guidance. If lower extremity ultrasound negative would consider doing CTA regardless of renal function. Hold further coumadin and provide 5mg vitamin K now while continuing heparin gtt. 2D echo has been ordered. Would recommend maintaining ICU level of care. Hypertension: Currently hypotensive, hold home antihypertensives. Anion gap acidosis: Clinically dehydrated. DC metformin for now. Elevated troponin: No chest pain. Possibly demand mediated in the setting of decreased glomerular filtration rate. Atrial fibrillation: Rate is controlled. Anticoagulation as above. Will follow with you. Discussed Condition With: Patient, Dr. Castro
[2018-02-02] MEDS ORDERED: Dextrose 50% in Water 50 ML Vial IV.PUSH PRN (08:32)
[2018-02-02] MEDS: LORazepam 0.5 MG Tablet PO PRN ×2 (08:42→21:36)
--- NOTE | 2018-02-02 09:15 | US ---
EXAM DATE: 02/02/2018 9:08 AM EST AGE/SEX: 73 years / Male INDICATIONS: Bilateral leg swelling. Shortness of breath. CLINICAL DATA: This is the patient's initial encounter. Patient reports that signs and symptoms have been present for 1 day and indicates a pain score of 0/10. MEDICAL/SURGICAL HISTORY: . Arthritis. Atrial fibrillation. Diabetes. Hypertension. Reflux clarice ritis. . Left hip replacement. COMPARISON: No prior exams available for comparison. TECHNIQUE: Venous ultrasound of both lower extremities was performed from the inguinal ligament to t he proximal calf. Real-time, color Doppler and spectral tracing, compression and augmentation techni ques were used. FINDINGS: Right Leg: Nonocclusive thrombus in the mid right common femoral vein. Left Leg: Normal compression of the deep venous system from the inguinal region to the proximal calf . No echogenic clot is seen. Normal response of the venous system to augmentation and respiration. Other: None. CONCLUSION: 1. Nonocclusive thrombus mid right common femoral vein. 2. No deep venous thrombosis on the left. Electronically signed by: Hernando Martinez MD Board Certified Radiologist 02/02/2018 9:13 AM EST
[2018-02-02] MEDS ORDERED: Phytonadione 5 MG/SWFI 5 ML Oral Syringe PO ONE (09:31)
[2018-02-02 10:08] LABS: Potassium 3.7 meq/L (3.5-5.1)
[2018-02-02 10:10] LABS: Calcium 7.7 mg/dL (8.5-10.1)
[2018-02-02 10:11] LABS: Carbon Dioxide 23.2 meq/L (21.0-32.0)
--- NOTE | 2018-02-02 11:48 | NM ---
EXAM DATE: 02/02/2018 11:28 AM EST AGE/SEX: 73 years / Male INDICATIONS: Shortness of breath. CLINICAL DATA: This is the patient's initial encounter. Patient reports that signs and symptoms have been present for 2 days and indicates a pain score of 0/10. MEDICAL/SURGICAL HISTORY: Arthritis. Diabetes. Hypertension. A-fib, enlarged prostate, gastr ic reflux. . S/P left total hip replacement. COMPARISON: [facility], CHEST 1V SINGLE AP, 02/02/2018. . DOSE: 1.6 mCi Tc99m DTPA aerosol 8.8 mCi Tc99m MAA IV TECHNIQUE: Following five minutes of tidal breathing of DTPA aerosol, planar images of the lungs wer e performed in eight projections. The patient was then injected with MAA, and eight-view perfusion s can was performed. FINDINGS: Moderate central airway tracer deposition evident. Perfusion is more homogeneous than ventilation wit h scattered small peripheral defects.. I do not see any significant ventilation/perfusion mismatch. CONCLUSION: 1. Moderate ventilatory defect with central tracer airway deposition. 2. Low to intermediate probability for pulmonary embolism. Electronically signed by: Hernando Martinez MD Board Certified Radiologist 02/02/2018 11:46 AM EST
[2018-02-02] MEDS: Sod Chloride 0.9% Inj 1,000 ML IV.CONT SCH ×2 (12:16→21:53)
[2018-02-02 13:40] LABS: Troponin I 0.26 ng/mL (0.02-0.05)
[2018-02-02] MEDS: Insulin NovoLOG Aspart Correctional Sugar Inj SQ SCH ×2 (13:43→17:54)
--- NOTE | 2018-02-02 16:24 | ECG ---
Date Performed: 02/02/2018 Time Performed: 09:34:03 PTAGE: 73 years EKG: ATRIAL FIBRILLATION WITH ABERRANT CONDUCTION OR VENTRICULAR PREMATURE COMPLEXES LOW QRS VOL TAGE IN EXTREMITY LEADS POSSIBLE ANTERIOR MYOCARDIAL INFARCTION MODERATE T-WAVE ABNORMALITY, CONSIDER LATERAL ISCHEMIA MODERATE T-WAVE ABNORMALITY, CONSIDER INFERIOR ISCHEMIA Compared to previous tracin g, HR has slowed somewhat ABNORMAL ECG PREVIOUS TRACING : 02/02/2018 02.33 DOCTOR: Lizet Mari Interpretating Date/Time 02/02/2018 16:24:32
--- NOTE | 2018-02-02 16:24 | ECG ---
Date Performed: 02/02/2018 Time Performed: 02:33:16 PTAGE: 73 years EKG: ATRIAL FIBRILLATION WITH ABERRANT CONDUCTION OR VENTRICULAR PREMATURE COMPLEXES MODERATE T- WAVE ABNORMALITY, CONSIDER ANTERIOR ISCHEMIA Compared to previous tracing, patient now has couplet PV Cs ABNORMAL ECG PREVIOUS TRACING : 02/01/2018 09.35 DOCTOR: Lizet Mari Interpretating Date/Time 02/02/2018 16:24:15
--- NOTE | 2018-02-02 16:44 | P.PNOP ---
Subjective Interval history: Patient is status post left total hip arthroplasty approximately 12 days ago. He was admitted earlier this week and diagnosed with DVT and pulmonary embolism. He has been on his regular dose of Coumadin since day of surgery. Currently he is awake and alert. He states that hip is feeling good with minimal pain. Currently he has minimal shortness of breath. Physical Exam Vital signs: Vital Signs 02/02/18 02:05 02/02/18 02:24 02/02/18 02:46 Temperature 97.4 F L Pulse Rate 91 H 86 Respiratory Rate 20 18 Blood Pressure 95/62 L 92/59 L Pulse Oximetry 99 97 97 02/02/18 03:40 02/02/18 04:24 02/02/18 05:30 Temperature Pulse Rate 68 67 Respiratory Rate 18 18 Blood Pressure 90/66 L 95/59 L Pulse Oximetry 96 97 97 02/02/18 08:00 02/02/18 08:42 02/02/18 10:00 Temperature 98.2 F Pulse Rate 78 Respiratory Rate 20 19 Blood Pressure Pulse Oximetry 97 100 02/02/18 10:14 02/02/18 10:55 02/02/18 11:01 Temperature Pulse Rate 78 80 Respiratory Rate 21 21 Blood Pressure 132/70 117/80 Pulse Oximetry 98 98 02/02/18 11:30 02/02/18 12:00 02/02/18 13:00 Temperature 98.2 F Pulse Rate 74 72 84 Respiratory Rate 23 20 20 Blood Pressure Pulse Oximetry 100 99 99 02/02/18 14:00 02/02/18 15:00 02/02/18 15:04 Temperature 97.2 F L Pulse Rate 76 78 Respiratory Rate 19 19 Blood Pressure Pulse Oximetry 99 100 99 02/02/18 16:00 Temperature Pulse Rate 74 Respiratory Rate 16 Blood Pressure Pulse Oximetry 99 Intake & Output 02/01/18 02/02/18 02/02/18 18:59 06:59 18:59 Intake Total 0 / 0 Balance 0 / 0 Weight 112.2 kg Intake: Oral 0 / 0 Other: Weight On Admission 112.2 kg Narrative: Patient is awake and alert. Examination of left leg reveals well-healed surgical incision. Clean dry dressing is in place. He has minimal pain with hip range of motion. There is no erythema or drainage. Results - Labs CBC & Chem 7: 02/02/18 02:30 02/02/18 09:35 Laboratory Results - last 24 hr 02/02/18 02/02/18 02/02/18 02:30 02:30 02:30 CBC w Diff Auto diff final WBC 15.2 H RBC 3.55 L Hgb 10.8 L Hct 32.4 L MCV 91.5 MCH 30.5 MCHC 33.4 RDW 13.0 Plt Count 246 MPV 7.9 Neut % (Auto) 84.7 H Lymph % (Auto) 9.8 [place] % (Auto) 4.8 Eos % (Auto) 0.5 Baso % (Auto) 0.2 Neut # (Auto) 12.9 H Lymph # (Auto) 1.5 [place] # (Auto) 0.7 Eos # (Auto) 0.1 Baso # (Auto) 0.0 WBC Differential . Differential Comment . PT INR APTT Sodium 135 L Potassium 3.8 Chloride 100 Carbon Dioxide 19.1 L Anion Gap 16 H BUN 22 H Creatinine 1.80 H Estimated GFR 37 L Random Glucose 196 H Calcium 7.8 L Total Creatine Kinase Troponin I 0.41 H B-Natriuretic Peptide 739 H 02/02/18 02/02/18 02/02/18 02:30 06:27 09:35 CBC w Diff WBC RBC Hgb Hct MCV MCH MCHC RDW Plt Count MPV Neut % (Auto) Lymph % (Auto) [place] % (Auto) Eos % (Auto) Baso % (Auto) Neut # (Auto) Lymph # (Auto) [place] # (Auto) Eos # (Auto) Baso # (Auto) WBC Differential Differential Comment PT 18.8 H INR 1.9 APTT 30.6 42.0 H D Sodium Potassium Chloride Carbon Dioxide Anion Gap BUN Creatinine Estimated GFR Random Glucose Calcium Total Creatine Kinase 81 Troponin I 0.39 H B-Natriuretic Peptide 02/02/18 02/02/18 09:35 11:45 CBC w Diff WBC RBC Hgb Hct MCV MCH MCHC RDW Plt Count MPV Neut % (Auto) Lymph % (Auto) [place] % (Auto) Eos % (Auto) Baso % (Auto) Neut # (Auto) Lymph # (Auto) [place] # (Auto) Eos # (Auto) Baso # (Auto) WBC Differential Differential Comment PT INR APTT Sodium 137 Potassium 3.7 Chloride 102 Carbon Dioxide 23.2 Anion Gap 12 BUN 25 H Creatinine 1.70 H Estimated GFR 39 L Random Glucose 174 H Calcium 7.7 L Total Creatine Kinase 77 Troponin I 0.26 H B-Natriuretic Peptide - Imaging Impressions Pulmonary Perfusion Imaging 02/02/18 00:00 CONCLUSION: 1. Moderate ventilatory defect with central tracer airway deposition. 2. Low to intermediate probability for pulmonary embolism. Chest X-Ray 02/02/18 02:23 CONCLUSION: Cardiomegaly. No acute cardiopulmonary disease Venous Doppler Study 02/02/18 08:11 CONCLUSION: 1. Nonocclusive thrombus mid right common femoral vein. 2. No deep venous thrombosis on the left. Assessment and Plan - Assessment and Plan Patient is doing well with his left hip status post left total hip arthroplasty. He does have a DVT and pulmonary embolism. He is currently on Coumadin as well as heparin drip. He has minimal shortness of breath currently. He may resume physical therapy when he is medically cleared. He may weight-bear as tolerated. He will need daily dressing changes with [place] to left hip. He will need to follow-up with me in 1-2 weeks for follow-up of his hip.
--- NOTE | 2018-02-02 18:02 | ECHRPT ---
Indication: Atrial Fib and Flutter CONCLUSIONS The left ventricular systolic function is low normal with an estimated ejection fraction in the rang e of 50- 55%. Wall thickness is measured at the upper limits of normal. There is mild tricuspid valve regurgitation. The inferior vena cava is dilated. BP: 124 / 77 HR: 73 Rhythm: MEASUREMENTS (Male / Female) Normal Values Technical Quality:Fair 2D ECHO LV Diastolic Diameter PLAX 4.7 cm 4.2 - 5.9 / 3.9 - 5.3 cm LV Systolic Diameter PLAX 3.4 cm IVS Diastolic Thickness 1.1 cm 0.6 - 1.0 / 0.6 - 0.9 cm LVPW Diastolic Thickness 1.1 cm 0.6 - 1.0 / 0.6 - 0.9 cm LV Relative Wall Thickness 0.5 RV Internal Dim ED PLAX 4.5 cm LVOT Diameter 2.2 cm Aortic Root Diameter 3.8 cm LA Systolic Diameter LX 5.0 cm 3.0 - 4.0 / 2.7 - 3.8 cm DOPPLER AV Peak Velocity 121.7 cm/s AV Peak Gradient 5.9 mmHg LVOT Peak Velocity 86.0 cm/s LVOT Peak Gradient 3.0 mmHg AV Area Cont Eq pk 2.7 cm Mitral E Point Velocity 77.1 cm/s Mitral A Point Velocity 38.3 cm/s Mitral E to A Ratio 2.0 LV E' Lateral Velocity 17.0 cm/s Mitral E to LV E' Lateral Ratio 4.5 LV E' Septal Velocity 8.5 cm/s Mitral E to LV E' Septal Ratio 9.1 TR Peak Velocity 266.0 cm/s TR Peak Gradient 28.3 mmHg Right Atrial Pressure 10.0 mmHg Pulmonary Artery Systolic Pressu 38.3 mmHg Right Ventricular Systolic Press 38.3 mmHg PV Peak Velocity 53.7 cm/s PV Peak Gradient 1.2 mmHg FINDINGS LEFT VENTRICLE Normal left ventricular size. Wall thickness is measured at the upper limits of normal. The left ventricular systolic function is low normal with an estimated ejection fraction in the rang e of 50- 55%. RIGHT VENTRICLE Grossly normal LEFT ATRIUM The left atrial size is [id number] dilated. RIGHT ATRIUM The right atrial size is moderately dilated. ATRIAL SEPTUM Normal atrial septal thickness without atrial level shunting by limited color doppler interrogation. AORTA The aortic root and proximal ascending aorta are normal in size on limited imaging. MITRAL VALVE Mild mitral annular calcification. No mitral valve regurgitation. No mitral valve stenosis. AORTIC VALVE Trileaflet aortic valve. Aortic valve sclerosis is present. No aortic valve regurgitation. No aortic valve stenosis. TRICUSPID VALVE Structurally normal tricuspid valve. There is mild tricuspid valve regurgitation. The estimated pulmonary arterial pressure is 38 mmHg. PULMONARY VALVE Trivial pulmonary valve regurgitation. VESSELS The inferior vena cava is dilated. PERICARDIUM No pericardial effusion. Harry Chapman DO (Electronically Signed) Final Date:02 February 2018 18:01
[2018-02-02 19:49] LABS: Troponin I 0.2 ng/mL (0.02-0.05)
[2018-02-03] MEDS: Insulin NovoLOG Aspart Correctional Sugar Inj SQ SCH ×4 (01:23→17:33)
[2018-02-03] MEDS: Heparin Drip 25,000 UNIT/250 ML BAG IV.CONT PRN (02:48)
[2018-02-03 04:51] LABS: Baso % (Auto) 0.4 % (0.0-2.0); Eos # (Auto) 0.2 th/mm3 (0.0-0.4); Eos % (Auto) 1.6 % (0.0-4.0); Hematocrit 30.6 % (39.0-51.0); Lymph # (Auto) 1.3 th/mm3 (1.0-4.8); Lymph % (Auto) 13.7 % (9.0-44.0); Mean Corpuscular HGB Conc 32.7 % (32.0-36.0); Mean Corpuscular Hemoglobin 29.5 pg (27.0-34.0); Mean Corpuscular Volume 90.3 fL (80.0-100.0); Mean Platelet Volume 7.8 fL (7.0-11.0); Mono # (Auto) 0.5 th/mm3 (0.0-0.9); Mono % (Auto) 5.5 % (0.0-8.0); Neut # (Auto) 7.7 th/mm3 (1.8-7.7); Neut % (Auto) 78.8 % (16.0-70.0); Platelet Count 230 th/mm3 (150-450); Red Cell Distribution Width 12.9 % (11.6-17.2); White Blood Count 9.7 th/mm3 (4.0-11.0)
[2018-02-03 05:04] LABS: Potassium 3.5 meq/L (3.5-5.1)
[2018-02-03 05:07] LABS: Calcium 7.9 mg/dL (8.5-10.1)
[2018-02-03 05:08] LABS: Carbon Dioxide 25.3 meq/L (21.0-32.0)
[2018-02-03 05:42] LABS: INR 1.3 Ratio; Prothrombin Time 13.3 sec (9.8-11.6)
--- NOTE | 2018-02-03 06:41 | P.PN ---
Subjective Interval history: Patient is breathing better with no complaints. He has no chest pain. Physical Exam Vital signs: Vital Signs 02/02/18 08:00 02/02/18 08:42 02/02/18 10:00 Temperature 98.2 F Pulse Rate 78 Respiratory Rate 20 19 Blood Pressure Pulse Oximetry 97 100 02/02/18 10:14 02/02/18 10:55 02/02/18 11:01 Temperature Pulse Rate 78 80 Respiratory Rate 21 21 Blood Pressure 132/70 117/80 Pulse Oximetry 98 98 02/02/18 11:30 02/02/18 12:00 02/02/18 13:00 Temperature 98.2 F Pulse Rate 74 72 84 Respiratory Rate 23 20 20 Blood Pressure Pulse Oximetry 100 99 99 02/02/18 14:00 02/02/18 15:00 02/02/18 15:04 Temperature 97.2 F L Pulse Rate 76 78 Respiratory Rate 19 19 Blood Pressure Pulse Oximetry 99 100 99 02/02/18 16:00 02/02/18 17:00 02/02/18 17:59 Temperature Pulse Rate 74 76 94 H Respiratory Rate 16 18 26 H Blood Pressure 149/89 H 149/89 H Pulse Oximetry 99 100 90 L 02/02/18 18:00 02/02/18 19:00 02/02/18 20:00 Temperature 98.8 F Pulse Rate 96 H 82 78 Respiratory Rate 21 21 18 Blood Pressure Pulse Oximetry 98 98 97 02/02/18 20:56 02/02/18 20:59 02/02/18 21:00 Temperature Pulse Rate 82 82 82 Respiratory Rate 19 19 20 Blood Pressure 165/89 H 147/94 H Pulse Oximetry 100 100 100 02/02/18 21:56 02/02/18 22:00 02/02/18 22:50 Temperature Pulse Rate 82 84 Respiratory Rate 17 18 Blood Pressure 173/96 H 164/99 H Pulse Oximetry 99 99 95 02/02/18 23:00 02/03/18 00:00 02/03/18 01:00 Temperature 98.7 F Pulse Rate 82 80 76 Respiratory Rate 20 20 23 Blood Pressure 177/85 H 148/88 H 151/81 H Pulse Oximetry 94 L 99 96 02/03/18 02:00 02/03/18 03:00 02/03/18 04:00 Temperature 98.4 F Pulse Rate 80 78 86 Respiratory Rate 9 L 22 21 Blood Pressure 146/78 H 167/85 H 137/86 Pulse Oximetry 98 96 94 L 02/03/18 05:00 02/03/18 06:00 Temperature Pulse Rate 84 86 Respiratory Rate 9 L 16 Blood Pressure 166/89 H 161/88 H Pulse Oximetry 99 Intake & Output 02/02/18 02/02/18 02/03/18 06:59 18:59 06:59 Intake Total 0 / 0 600 / 600 1850 / 1850 Output Total 1600 / 1600 Balance 0 / 0 -1000 / -1000 1850 / 1850 Weight 112.2 kg 111 kg Intake: IV 1250 / 1250 Heparin/D5W 25,000 U/250 mL 25, 250 / 250 000 unit In 250 ml @ Per Protocol IV.CONT TITRATE PRN Rx #:[id number] NS Inj 1,000 ML @ 84 mls/hr IV. 1000 / 1000 CONT .[id number] [facility] Rx#: [id number] Oral 0 / 0 600 / 600 600 / 600 Output: Urine Amount (Catheter) 1600 / 1600 Indwelling Urethral Catheter 1600 / 1600 Other: Date of Last Bowel Movement 02/01/18 Weight On Admission 112.2 kg Narrative: This is a pleasant white male in no distress. HEENT: Pupils equal, EOMs intact, sclera nonicteric, mouth without lesions, TMs intact, nose without lesions Neck: No JVD, neck is supple, no carotid bruit Heart: Irregular rhythm without murmurs Lungs: Clear to auscultation Abdomen: Soft, nontender, no masses, no organomegaly Extremities: trace edema, pulses palpated, no calf tenderness Skin: Without lesions or rash Neuro: Alert, oriented, normal motor exam, sensation intact, cranial nerves intact - Urinary Catheter Management Indwelling Urethral Catheter Cath placed during this visit: no Reason for continuing: Chronic Urinary Retention Results - Labs CBC & Chem 7: 02/03/18 04:35 02/03/18 04:30 Laboratory Results - last 24 hr 02/02/18 02/02/18 02/02/18 06:27 09:35 09:35 CBC w Diff WBC RBC Hgb Hct MCV MCH MCHC RDW Plt Count MPV Neut % (Auto) Lymph % (Auto) [place] % (Auto) Eos % (Auto) Baso % (Auto) Neut # (Auto) Lymph # (Auto) [place] # (Auto) Eos # (Auto) Baso # (Auto) WBC Differential Differential Comment PT INR APTT 42.0 H D Sodium 137 Potassium 3.7 Chloride 102 Carbon Dioxide 23.2 Anion Gap 12 BUN 25 H Creatinine 1.70 H Estimated GFR 39 L POC Glucose Random Glucose 174 H Calcium 7.7 L Total Creatine Kinase 81 Troponin I 0.39 H 02/02/18 02/02/18 02/02/18 11:45 17:00 17:47 CBC w Diff WBC RBC Hgb Hct MCV MCH MCHC RDW Plt Count MPV Neut % (Auto) Lymph % (Auto) [place] % (Auto) Eos % (Auto) Baso % (Auto) Neut # (Auto) Lymph # (Auto) [place] # (Auto) Eos # (Auto) Baso # (Auto) WBC Differential Differential Comment PT INR APTT 36.2 H Sodium Potassium Chloride Carbon Dioxide Anion Gap BUN Creatinine Estimated GFR POC Glucose 128 H Random Glucose Calcium Total Creatine Kinase 77 Troponin I 0.26 H 02/02/18 02/03/18 02/03/18 19:00 03:15 04:30 CBC w Diff WBC RBC Hgb Hct MCV MCH MCHC RDW Plt Count MPV Neut % (Auto) Lymph % (Auto) [place] % (Auto) Eos % (Auto) Baso % (Auto) Neut # (Auto) Lymph # (Auto) [place] # (Auto) Eos # (Auto) Baso # (Auto) WBC Differential Differential Comment PT INR APTT 32.8 H Sodium 141 Potassium 3.5 Chloride 107 Carbon Dioxide 25.3 Anion Gap 9 BUN 22 H Creatinine 1.10 Estimated GFR 65 L POC Glucose Random Glucose 136 H Calcium 7.9 L Total Creatine Kinase 69 Troponin I 0.20 H 02/03/18 02/03/18 02/03/18 04:30 04:35 05:39 CBC w Diff Auto diff final WBC 9.7 RBC 3.40 L Hgb 10.0 L Hct 30.6 L MCV 90.3 MCH 29.5 MCHC 32.7 RDW 12.9 Plt Count 230 MPV 7.8 Neut % (Auto) 78.8 H Lymph % (Auto) 13.7 [place] % (Auto) 5.5 Eos % (Auto) 1.6 Baso % (Auto) 0.4 Neut # (Auto) 7.7 Lymph # (Auto) 1.3 [place] # (Auto) 0.5 Eos # (Auto) 0.2 Baso # (Auto) 0.0 WBC Differential . Differential Comment . PT 13.3 H INR 1.3 APTT Sodium Potassium Chloride Carbon Dioxide Anion Gap BUN Creatinine Estimated GFR POC Glucose 154 H Random Glucose Calcium Total Creatine Kinase Troponin I - Imaging Impressions Pulmonary Perfusion Imaging 02/02/18 00:00 CONCLUSION: 1. Moderate ventilatory defect with central tracer airway deposition. 2. Low to intermediate probability for pulmonary embolism. Venous Doppler Study 02/02/18 08:11 CONCLUSION: 1. Nonocclusive thrombus mid right common femoral vein. 2. No deep venous thrombosis on the left. Assessment and Plan - Assessment (1) Deep vein thrombosis (DVT) of right lower extremity Code(s): I82.401 - Acute embolism and thrombosis of unspecified deep veins of right lower extremity Status: Acute (2) Pulmonary embolism Code(s): I26.99 - Other pulmonary embolism without acute cor pulmonale Status : Acute (3) Shortness of breath Code(s): R06.02 - Shortness of breath Status: Acute (4) Acute kidney injury Code(s): N17.9 - Acute kidney failure, unspecified Status: Acute (5) Elevated troponin Code(s): R74.8 - Abnormal levels of other serum enzymes Status: Acute (6) Chronic atrial fibrillation Code(s): I48.2 - Chronic atrial fibrillation Status: Chronic (7) Hyperlipidemia Code(s): E78.5 - Hyperlipidemia, unspecified Status: Chronic (8) Type 2 diabetes mellitus with diabetic nephropathy Code(s): E11.21 - Type 2 diabetes mellitus with diabetic nephropathy Status: Chronic (9) Carotid artery plaque Code(s): I65.29 - Occlusion and stenosis of unspecified carotid artery Status : Chronic (10) BPH w urinary obs/LUTS Code(s): N40.1 - Benign prostatic hyperplasia with lower urinary tract symptoms ; N13.8 - Other obstructive and reflux uropathy Status: Chronic (11) Hypertension Code(s): I10 - Essential (primary) hypertension Status: Chronic (12) Atherosclerosis of aorta Code(s): I70.0 - Atherosclerosis of aorta Status: Chronic - Plan Plan: His VQ scan yesterday came back showing probable pulmonary embolism. It was not felt he needed a CT pulmonary angiography in view of his elevated creatinine yesterday. He was given increased amount of fluids and his creatinine has improved today. He has been maintained on heparin drip and is having no symptoms today with no chest pain or shortness of breath. He also had a bilateral Doppler venous ultrasound that showed a nonobstructive thrombus in the right upper right lower extremity in the common femoral vein. This likely was the source of the pulmonary emboli. Will resume his warfarin at 5 mg daily except for a half a tablet on Wednesday. We will transfer him from the intensive care unit to the floor today. He is on a sliding scale for his diabetes but I will resume his metformin today since his creatinine is down to 1.1. His 2D echocardiogram done yesterday showed an EF of 50-55% and no significant valvular heart disease. (9) Carotid artery plaque Qualifiers: Laterality: bilateral Qualified Code(s): I65.23 - Occlusion and stenosis of bilateral carotid arteries
--- NOTE | 2018-02-03 07:51 | P.PNCA ---
Subjective Interval history: Patient denies any chest pain, shortness of breath, palpitations. His left lower extremity is much less swollen today. Telemetry last night showed 13 beats NSVT, otherwise rate controlled A. fib. Medications and Allergies Active Medications: Active Medications Hydrocodone Bitart/Acetaminophen ([place] 10/325) 1 tab PO Q4H PRN PRN Reason: PAIN 1-10 Last Admin: 02/02/18 08:42 Dose: 1 tab Atorvastatin Calcium (Lipitor) 40 mg PO DAILY [facility] Last Admin: 02/02/18 08:42 Dose: 40 mg Clonidine HCl (Catapres) 0.2 mg PO TID PRN PRN Reason: SBP >160 Dextrose (D50w Vial) 50 ml IV.PUSH UNSCH PRN PRN Reason: PER HYPOGLYCEMIA PROTOCOL Enoxaparin Sodium (Lovenox Inj) 110 mg SQ Q12HR [facility] Glucagon (Glucagon Inj) 1 mg OTHER PRN PRN PRN Reason: for Hypoglycemia Protocol Sodium Chloride (Ns Inj) 1,000 mls @ 84 mls/hr IV.CONT .[id number] [facility] Last Admin: 02/02/18 21:53 Dose: 84 mls/hr Insulin Aspart (Novolog Insulin [employer] Sugar Inj) 0 unit SQ Q6HR [facility]; Protocol Last Admin: 02/03/18 05:41 Dose: 2 unit Lisinopril (Prinivil) 20 mg PO DAILY [facility] Lorazepam (Ativan) 0.5 mg PO Q12H PRN PRN Reason: ANXIETY Last Admin: 02/02/18 21:36 Dose: 0.5 mg Metoprolol Tartrate (Lopressor) 50 mg PO BID [facility] Warfarin Sodium (Coumadin) 5 mg PO DAILY@1600 [facility] Allergies Allergy/AdvReac Type Severity Reaction Status Date / Time No Known Allergies Allergy Verified 02/02/18 02:15 Home Medications Medication Instructions Recorded Confirmed Type clonidine HCl 0.2 mg PO TID 01/17/18 02/02/18 History exenatide [Byetta] 10 mcg SUBCUT BID 01/17/18 02/02/18 History hydrocodone-acetaminophen 1 tab PO Q4H PRN 01/17/18 02/02/18 History lisinopril 20 mg PO DAILY 01/17/18 02/02/18 History metformin 1,000 mg PO BID 01/17/18 02/02/18 History nifedipine [Adalat CC] 60 mg PO DAILY 01/17/18 02/02/18 History tamsulosin [Flomax] 0.4 mg PO DAILY 01/17/18 02/02/18 History warfarin 2.5 mg PO 3XW 01/17/18 02/02/18 History warfarin 5 mg PO 4XW 01/17/18 02/02/18 History rosuvastatin 20 mg PO DAILY 01/19/18 02/02/18 History Physical Exam Vital signs: Vital Signs 02/02/18 08:00 02/02/18 08:42 02/02/18 10:00 Temperature 98.2 F Pulse Rate 78 Respiratory Rate 20 19 Blood Pressure Pulse Oximetry 97 100 02/02/18 10:14 02/02/18 10:55 02/02/18 11:01 Temperature Pulse Rate 78 80 Respiratory Rate 21 21 Blood Pressure 132/70 117/80 Pulse Oximetry 98 98 02/02/18 11:30 02/02/18 12:00 02/02/18 13:00 Temperature 98.2 F Pulse Rate 74 72 84 Respiratory Rate 23 20 20 Blood Pressure Pulse Oximetry 100 99 99 02/02/18 14:00 02/02/18 15:00 02/02/18 15:04 Temperature 97.2 F L Pulse Rate 76 78 Respiratory Rate 19 19 Blood Pressure Pulse Oximetry 99 100 99 02/02/18 16:00 02/02/18 17:00 02/02/18 17:59 Temperature Pulse Rate 74 76 94 H Respiratory Rate 16 18 26 H Blood Pressure 149/89 H 149/89 H Pulse Oximetry 99 100 90 L 02/02/18 18:00 02/02/18 19:00 02/02/18 20:00 Temperature 98.8 F Pulse Rate 96 H 82 78 Respiratory Rate 21 21 18 Blood Pressure Pulse Oximetry 98 98 97 02/02/18 20:56 02/02/18 20:59 02/02/18 21:00 Temperature Pulse Rate 82 82 82 Respiratory Rate 19 19 20 Blood Pressure 165/89 H 147/94 H Pulse Oximetry 100 100 100 02/02/18 21:56 02/02/18 22:00 02/02/18 22:50 Temperature Pulse Rate 82 84 Respiratory Rate 17 18 Blood Pressure 173/96 H 164/99 H Pulse Oximetry 99 99 95 02/02/18 23:00 02/03/18 00:00 02/03/18 01:00 Temperature 98.7 F Pulse Rate 82 80 76 Respiratory Rate 20 20 23 Blood Pressure 177/85 H 148/88 H 151/81 H Pulse Oximetry 94 L 99 96 02/03/18 02:00 02/03/18 03:00 02/03/18 04:00 Temperature 98.4 F Pulse Rate 80 78 86 Respiratory Rate 9 L 22 21 Blood Pressure 146/78 H 167/85 H 137/86 Pulse Oximetry 98 96 94 L 02/03/18 05:00 02/03/18 06:00 Temperature Pulse Rate 84 86 Respiratory Rate 9 L 16 Blood Pressure 166/89 H 161/88 H Pulse Oximetry 99 Intake & Output 02/02/18 02/03/18 02/03/18 18:59 06:59 18:59 Intake Total 600 / 600 1850 / 1850 Output Total 1600 / 1600 Balance -1000 / -1000 1850 / 1850 Weight 244 lb 11.41 oz Intake: IV 1250 / 1250 Heparin/D5W 25,000 U/250 mL 25, 250 / 250 000 unit In 250 ml @ Per Protocol IV.CONT TITRATE PRN Rx #:[id number] NS Inj 1,000 ML @ 84 mls/hr IV. 1000 / 1000 CONT .[id number] [facility] Rx#: [id number] Oral 600 / 600 600 / 600 Output: Urine Amount (Catheter) 1600 / 1600 Indwelling Urethral Catheter 1600 / 1600 Other: Date of Last Bowel Movement 02/01/18 Narrative: GENERAL: Well-developed well-nourished. Appears comfortable on 2 L nasal cannula and in no acute distress. NECK: No carotid bruits. No JVD. CARDIOVASCULAR: Irregular rate and rhythm. No murmur appreciated. RESPIRATORY: No accessory muscle use. Clear to auscultation. Breath sounds equal bilaterally. MUSCULOSKELETAL: Right lower extremity with 1+ nonpitting edema and venous stasis skin changes. Left lower extremity with 2+ pitting edema. NEUROLOGICAL: Awake and alert. Normal speech. - Urinary Catheter Management Indwelling Urethral Catheter Cath placed during this visit: no Reason for continuing: Chronic Urinary Retention Results 02/03/18 04:35 02/03/18 04:30 Cardiac Enzymes 02/02/18 02/02/18 02/02/18 Range/Units 02:30 02:30 06:27 Troponin I 0.41 H 0.39 H (0.02-0.05) ng/mL B-Natriuretic Peptide 739 H (0-100) pg/mL 02/02/18 02/02/18 Range/Units 11:45 19:00 Troponin I 0.26 H 0.20 H (0.02-0.05) ng/mL B-Natriuretic Peptide (0-100) pg/mL Coagulation 02/02/18 02/02/18 02/02/18 Range/Units 02:30 02:30 09:35 PT 18.8 H (9.8-11.6) sec APTT 30.6 42.0 H D (23.4-31.7) sec B-Natriuretic Peptide 739 H (0-100) pg/mL 02/02/18 02/03/18 02/03/18 Range/Units 17:00 03:15 04:30 PT 13.3 H (9.8-11.6) sec APTT 36.2 H 32.8 H (23.4-31.7) sec B-Natriuretic Peptide (0-100) pg/mL CBC 02/02/18 02/03/18 Range/Units 02:30 04:35 WBC 15.2 H 9.7 (4.0-11.0) th/mm3 RBC 3.55 L 3.40 L (4.50-5.90) mil/mm3 Hgb 10.8 L 10.0 L (13.0-17.0) gm/dL Hct 32.4 L 30.6 L (39.0-51.0) % Plt Count 246 230 (150-450) th/mm3 Neut # (Auto) 12.9 H 7.7 (1.8-7.7) th/mm3 Lymph # (Auto) 1.5 1.3 (1.0-4.8) th/mm3 [place] # (Auto) 0.7 0.5 (0.0-0.9) th/mm3 Eos # (Auto) 0.1 0.2 (0.0-0.4) th/mm3 Baso # (Auto) 0.0 0.0 (0.0-0.2) th/mm3 Comprehensive Metabolic Panel 02/02/18 02/02/18 02/03/18 Range/Units 02:30 09:35 04:30 Sodium 135 L 137 141 (136-145) meq/L Potassium 3.8 3.7 3.5 (3.5-5.1) meq/L Chloride 100 102 107 (98-107) meq/L Carbon Dioxide 19.1 L 23.2 25.3 (21.0-32.0) meq/L BUN 22 H 25 H 22 H (7-18) mg/dL Creatinine 1.80 H 1.70 H 1.10 (0.60-1.30) mg/dL Calcium 7.8 L 7.7 L 7.9 L (8.5-10.1) mg/dL Intake and Output 02/02/18 02/03/18 02/03/18 22:59 06:59 14:59 Intake Total 1600 / 1600 850 / 850 Output Total 1600 / 1600 Balance 0 / 0 850 / 850 Intake: IV 1000 / 1000 250 / 250 Heparin/D5W 25,000 U/250 mL 25, 250 / 250 000 unit In 250 ml @ Per Protocol IV.CONT TITRATE PRN Rx #:[id number] NS Inj 1,000 ML @ 84 mls/hr IV. 1000 / 1000 CONT .[id number] [facility] Rx#: [id number] Oral 600 / 600 600 / 600 Output: Urine Amount (Catheter) 1600 / 1600 Indwelling Urethral Catheter 1600 / 1600 Other: Date of Last Bowel Movement 02/01/18 02/01/18 Weight 244 lb 11.41 oz - Imaging and Cardiology Imaging: Impressions Pulmonary Perfusion Imaging 02/02/18 00:00 CONCLUSION: 1. Moderate ventilatory defect with central tracer airway deposition. 2. Low to intermediate probability for pulmonary embolism. Chest X-Ray 02/02/18 02:23 CONCLUSION: Cardiomegaly. No acute cardiopulmonary disease Venous Doppler Study 02/02/18 08:11 CONCLUSION: 1. Nonocclusive thrombus mid right common femoral vein. 2. No deep venous thrombosis on the left. Assessment and Plan - Plan 73-year-old male with atrial fibrillation on warfarin, HTN, DM who presented with difficulty breathing Known lower extremity DVT with sub-massive PE based on clinical symptoms and VQ scan: Hypotension improving. Warfarin initially reversed with vitamin K with hypotension, can resume warfarin and transition heparin GTT until Lovenox bridge. O2 as needed. Chronic anticoagulation: Patient is normally chronically anticoagulated with warfarin for atrial fibrillation, however patient was off of warfarin recently for both hip surgery and patient self discontinued due to recent cystitis and antibiotic use. INR 1.1 on most recent office check. INR remained subtherapeutic at 1.9 at admission. No treatment failure on warfarin, can resume. Will need Lovenox bridge until INR therapeutic. Elevated troponin: No chest pain. Demand mediated in the setting of PE, NICOLE, hypotension. No indication for LHC at this time. NSVT: Asymptomatic 13 beats on 02/02. Echocardiogram with normal EF. Start beta-haider. Monitor on telemetry for the next 24 hours. Hypertension: Initially hypotensive, BP now improved. Resume home lisinopril. DC home nifedipine with lower extremity edema. Start metoprolol 50 mg twice daily as above for VT. Resume home clonidine as needed for now for systolic blood pressure greater than 160. Atrial fibrillation: Rate control with metoprolol as above. Anticoagulation as above. We will follow with you. Discussed Condition With: Patient, RN, Dr. Castro
[2018-02-03] MEDS: Lisinopril 20 MG Tablet PO SCH ×2 (07:56→08:26)
[2018-02-03] MEDS: Metoprolol Tartrate 50 MG Tablet PO SCH ×3 (07:56→20:34)
[2018-02-03] MEDS: Enoxaparin Inj 120 MG/0.8 ML Syringe SQ SCH ×2 (09:14→20:30)
[2018-02-03] MEDS: Sod Chloride 0.9% Inj 1,000 ML IV.CONT SCH ×2 (09:16→20:34)
[2018-02-03] MEDS ORDERED: Polyethylene Glycol 3350 17 GM Packet PO ONE (12:15)
[2018-02-04] MEDS: Insulin NovoLOG Aspart Correctional Sugar Inj SQ SCH ×3 (00:53→12:02)
[2018-02-04 06:48] LABS: Baso % (Auto) 0.2 % (0.0-2.0); Eos # (Auto) 0.2 th/mm3 (0.0-0.4); Eos % (Auto) 2.4 % (0.0-4.0); Hematocrit 27.3 % (39.0-51.0); Hemoglobin 9.3 gm/dL (13.0-17.0); Lymph # (Auto) 1.4 th/mm3 (1.0-4.8); Lymph % (Auto) 16.9 % (9.0-44.0); Mean Corpuscular Hemoglobin 30.9 pg (27.0-34.0); Mean Corpuscular Volume 90.9 fL (80.0-100.0); Mean Platelet Volume 8.6 fL (7.0-11.0); Mono # (Auto) 0.5 th/mm3 (0.0-0.9); Mono % (Auto) 6.3 % (0.0-8.0); Neut # (Auto) 6.1 th/mm3 (1.8-7.7); Neut % (Auto) 74.2 % (16.0-70.0); Platelet Count 210 th/mm3 (150-450); Red Blood Count 3.01 mil/mm3 (4.50-5.90); Red Cell Distribution Width 13.7 % (11.6-17.2); White Blood Count 8.2 th/mm3 (4.0-11.0)
[2018-02-04 06:51] LABS: Potassium 3.6 meq/L (3.5-5.1)
[2018-02-04 06:53] LABS: INR 1.2 Ratio; Prothrombin Time 12.5 sec (9.8-11.6)
[2018-02-04 06:54] LABS: Calcium 7.6 mg/dL (8.5-10.1); Carbon Dioxide 25.4 meq/L (21.0-32.0)
--- NOTE | 2018-02-04 07:39 | P.PNCA ---
Subjective Interval history: Denies chest pain, shortness of breath, palpitations. Telemetry with 3 beats of NSVT, A. fib. Medications and Allergies Active Medications: Active Medications Hydrocodone Bitart/Acetaminophen ([place] 10/325) 1 tab PO Q4H PRN PRN Reason: PAIN 1-10 Last Admin: 02/03/18 20:30 Dose: 1 tab Atorvastatin Calcium (Lipitor) 40 mg PO DAILY [facility] Last Admin: 02/03/18 08:26 Dose: Not Given Clonidine HCl (Catapres) 0.2 mg PO TID PRN PRN Reason: SBP >160 Last Admin: 02/04/18 00:53 Dose: 0.2 mg Dextrose (D50w Vial) 50 ml IV.PUSH UNSCH PRN PRN Reason: PER HYPOGLYCEMIA PROTOCOL Enoxaparin Sodium (Lovenox Inj) 110 mg SQ Q12HR [facility] Last Admin: 02/03/18 20:30 Dose: 110 mg Glucagon (Glucagon Inj) 1 mg OTHER PRN PRN PRN Reason: for Hypoglycemia Protocol Sodium Chloride (Ns Inj) 1,000 mls @ 84 mls/hr IV.CONT .[id number] [facility] Last Admin: 02/03/18 20:34 Dose: 84 mls/hr Insulin Aspart (Novolog Insulin Correctional Sugar Inj) 0 unit SQ Q6HR [facility]; Protocol Last Admin: 02/04/18 06:35 Dose: Not Given Lisinopril (Prinivil) 20 mg PO DAILY [facility] Last Admin: 02/03/18 08:26 Dose: Not Given Lorazepam (Ativan) 0.5 mg PO Q12H PRN PRN Reason: ANXIETY Last Admin: 02/02/18 21:36 Dose: 0.5 mg Metoprolol Tartrate (Lopressor) 50 mg PO BID [facility] Last Admin: 02/03/18 20:34 Dose: 50 mg Warfarin Sodium (Coumadin) 5 mg PO DAILY@1600 [facility] Last Admin: 02/03/18 16:36 Dose: 5 mg Allergies Allergy/AdvReac Type Severity Reaction Status Date / Time No Known Allergies Allergy Verified 02/02/18 02:15 Home Medications Medication Instructions Recorded Confirmed Type clonidine HCl 0.2 mg PO TID 01/17/18 02/02/18 History exenatide [Byetta] 10 mcg SUBCUT BID 01/17/18 02/02/18 History hydrocodone-acetaminophen 1 tab PO Q4H PRN 01/17/18 02/02/18 History lisinopril 20 mg PO DAILY 01/17/18 02/02/18 History metformin 1,000 mg PO BID 01/17/18 02/02/18 History nifedipine [Adalat CC] 60 mg PO DAILY 01/17/18 02/02/18 History tamsulosin [Flomax] 0.4 mg PO DAILY 01/17/18 02/02/18 History warfarin 2.5 mg PO 3XW 01/17/18 02/02/18 History warfarin 5 mg PO 4XW 01/17/18 02/02/18 History rosuvastatin 20 mg PO DAILY 01/19/18 02/02/18 History Physical Exam Vital signs: Vital Signs 02/03/18 07:45 02/03/18 08:00 02/03/18 09:00 Temperature Pulse Rate 94 H 82 Respiratory Rate 20 18 Blood Pressure 198/94 H 155/91 H Pulse Oximetry 99 96 02/03/18 12:00 02/03/18 14:00 02/03/18 17:55 Temperature 98.0 F Pulse Rate 80 84 Respiratory Rate 22 Blood Pressure 165/100 H 137/88 Pulse Oximetry 02/03/18 18:30 02/03/18 20:00 02/04/18 00:00 Temperature 98 F 98.3 F 98.0 F Pulse Rate 75 57 L 77 Respiratory Rate 20 20 20 Blood Pressure 159/95 H 136/80 183/98 H Pulse Oximetry 98 97 97 02/04/18 03:14 02/04/18 05:10 Temperature 97.7 F Pulse Rate 82 Respiratory Rate 20 Blood Pressure 155/79 H 169/90 H Pulse Oximetry 97 Intake & Output 02/03/18 02/04/18 02/04/18 18:59 06:59 18:59 Intake Total 1050 / 1050 590 / 590 Output Total 750 / 750 Balance 1050 / 1050 -160 / -160 Weight 247 lb 2.211 oz Intake: IV 1050 / 1050 350 / 350 Heparin/D5W 25,000 U/250 mL 25, 50 / 50 000 unit In 250 ml @ Per Protocol IV.CONT TITRATE PRN Rx #:[id number] NS Inj 1,000 ML @ 84 mls/hr IV. 1000 / 1000 350 / 350 CONT .[id number] [facility] Rx#: [id number] Oral 240 / 240 Output: Urine 750 / 750 Other: Date of Last Bowel Movement 02/01/18 Narrative: GENERAL: Well-developed well-nourished. Appears comfortable on 2 L nasal cannula and in no acute distress. NECK: No carotid bruits. No JVD. CARDIOVASCULAR: Irregular rate and rhythm. No murmur appreciated. RESPIRATORY: No accessory muscle use. Clear to auscultation. Breath sounds equal bilaterally. MUSCULOSKELETAL: Right lower extremity with trace nonpitting edema and venous stasis skin changes. Left lower extremity with 2+ pitting edema. NEUROLOGICAL: Awake and alert. Normal speech. - Urinary Catheter Management Indwelling Urethral Catheter Cath placed during this visit: no Reason for continuing: Chronic Urinary Retention Results 02/04/18 05:11 02/04/18 05:11 Cardiac Enzymes 02/02/18 02/02/18 Range/Units 11:45 19:00 Troponin I 0.26 H 0.20 H (0.02-0.05) ng/mL Coagulation 02/02/18 02/02/18 02/03/18 Range/Units 09:35 17:00 03:15 PT (9.8-11.6) sec APTT 42.0 H D 36.2 H 32.8 H (23.4-31.7) sec 02/03/18 02/03/18 02/04/18 Range/Units 04:30 08:50 05:11 PT 13.3 H 12.5 H (9.8-11.6) sec APTT 26.0 D (23.4-31.7) sec CBC 02/03/18 02/04/18 Range/Units 04:35 05:11 WBC 9.7 8.2 (4.0-11.0) th/mm3 RBC 3.40 L 3.01 L (4.50-5.90) mil/mm3 Hgb 10.0 L 9.3 L (13.0-17.0) gm/dL Hct 30.6 L 27.3 L (39.0-51.0) % Plt Count 230 210 (150-450) th/mm3 Neut # (Auto) 7.7 6.1 (1.8-7.7) th/mm3 Lymph # (Auto) 1.3 1.4 (1.0-4.8) th/mm3 [place] # (Auto) 0.5 0.5 (0.0-0.9) th/mm3 Eos # (Auto) 0.2 0.2 (0.0-0.4) th/mm3 Baso # (Auto) 0.0 0.0 (0.0-0.2) th/mm3 Comprehensive Metabolic Panel 02/02/18 02/03/18 02/04/18 Range/Units 09:35 04:30 05:11 Sodium 137 141 142 (136-145) meq/L Potassium 3.7 3.5 3.6 (3.5-5.1) meq/L Chloride 102 107 108 H (98-107) meq/L Carbon Dioxide 23.2 25.3 25.4 (21.0-32.0) meq/L BUN 25 H 22 H 23 H (7-18) mg/dL Creatinine 1.70 H 1.10 1.10 (0.60-1.30) mg/dL Calcium 7.7 L 7.9 L 7.6 L (8.5-10.1) mg/dL Intake and Output 02/03/18 02/04/18 02/04/18 22:59 06:59 14:59 Intake Total 350 / 350 240 / 240 Output Total 750 / 750 Balance 350 / 350 -510 / -510 Intake: IV 350 / 350 NS Inj 1,000 ML @ 84 mls/hr IV. 350 / 350 CONT .[id number] [facility] Rx#: [id number] Oral 240 / 240 Output: Urine 750 / 750 Other: Date of Last Bowel Movement 02/01/18 Weight 247 lb 2.211 oz - Imaging and Cardiology Imaging: Impressions Pulmonary Perfusion Imaging 02/02/18 00:00 CONCLUSION: 1. Moderate ventilatory defect with central tracer airway deposition. 2. Low to intermediate probability for pulmonary embolism. Venous Doppler Study 02/02/18 08:11 CONCLUSION: 1. Nonocclusive thrombus mid right common femoral vein. 2. No deep venous thrombosis on the left. Assessment and Plan - Plan 73-year-old male with atrial fibrillation on warfarin, HTN, DM who presented with difficulty breathing Known lower extremity DVT with sub-massive PE based on clinical symptoms and VQ scan: Hypotension improved. Warfarin initially reversed with vitamin K with hypotension, continue warfarin and transition heparin GTT until Lovenox bridge. O2 as needed. Chronic anticoagulation: Patient is normally chronically anticoagulated with warfarin for atrial fibrillation, however patient was off of warfarin recently for both hip surgery and patient self discontinued due to recent cystitis and antibiotic use. INR 1.1 on most recent office check. INR remained subtherapeutic at 1.9 at admission. No treatment failure on warfarin, can resume at same previous outpatient dose he had been stable on. Will need Lovenox bridge until INR therapeutic. Elevated troponin: No chest pain. Trending down. Demand mediated in the setting of PE, NICOLE, hypotension. No indication for LHC at this time. NSVT: Asymptomatic 13 beats on 02/02. Echocardiogram with normal EF. Improved with starting beta-haider. Hypertension: Initially hypotensive, BP now improved. Increase home lisinopril 20 mg to twice daily. DC home nifedipine with lower extremity edema. Started metoprolol 50 mg twice daily as above for VT. Resume home clonidine 0.2mg TID. Atrial fibrillation: Rate control with metoprolol as above. Anticoagulation as above. Discharge planning. Discussed Condition With: Patient, Dr. Thomas, Dr. Castro
--- NOTE | 2018-02-04 08:08 | P.DCO ---
- Diagnosis (1) History of total hip replacement Status: Acute (2) Chronic atrial fibrillation Status: Chronic (3) Type 2 diabetes mellitus with diabetic nephropathy Status: Chronic (4) BPH w urinary obs/LUTS Status: Chronic (5) Hypertension Status: Chronic (6) Pulmonary embolism Status: Acute (7) Deep vein thrombosis (DVT) of right lower extremity Status: Acute - Physical Therapy Order: Evaluate and treat, Improve ambulation, Strength and gait training - Occupational Therapy Order: Evaluate and treat - Home Health Nursing Order: Medical education (Teach Lovenox injection and monitor PT/INR), Signs/ symptoms of disease process, Diabetic education, Nursing assessment with vital signs Instructions: Assist in Lovenox injections to be sure patient knows how to perform. Do an INR on 2-3 02-06-18 and and call result to crisis intervention specialist physician if INR <2.0 or >3.0. - Case Management Consult Case Management Consult-Home Health: Yes - Certification I have seen patient Blanca Bethea on 02/04/18. My clinical findings support the need for the requested home health care services because: Patient is going to be on Lovenox injections until his Warfarin is therapeutic. He needs a PT/INR done on 02-06-18 and 02-09-18. Call results to crisis intervention specialist physician. He had recent total hip replacement and needs some physical therapy also. Limited mobility due to disease progression, Injectable medication education/ administration I certify that my clinical findings support that this patient is homebound because: Post-op weakness (I certify that these services are needed), Unsteady gait/ balance, Unsafe to leave home unassisted (I attest that he needs this service.)
[2018-02-04] MEDS ORDERED: Lisinopril 20 MG Tablet PO SCH (09:00)
[2018-02-04] MEDS: Metoprolol Tartrate 50 MG Tablet PO SCH (09:16)
[2018-02-04] MEDS: Enoxaparin Inj 120 MG/0.8 ML Syringe SQ SCH (09:17)
[2018-02-04 12:14] VITALS: BP 156/71; PULSE 72; RESP 19; TEMP 97; O2SAT 99
--- NOTE | 2018-02-04 13:38 | P.DS ---
Date of admission: 02/02/18 03:43 Primary care physician: Ap Sexton MD Attending physician on discharge: Hernnadez Thomas Anticipated date of discharge: 02/04/18 Brief History from admission: HPI: 73-year-old white male who came early this morning because when he tried to fall asleep a few times this morning he would find himself gasping for air. He was fine as long as he was awake and sitting up. He denied any chest pain. He has no history of heart attack or angina. He had a nuclear medicine myocardial scan on 03/18/2016 that showed no ischemia but an EF of 42% with global hypokinesis prior 2D echocardiogram showed mild mitral regurgitation mild tricuspid regurgitation aortic sclerosis and a EF of 55-60%. He has been seeing Dr. Ramos for his atrial fibrillation and has been on warfarin therapy. He denies any history of lung disease. He did have a left total hip replacement on 01-21-18. He denies any calf pain. In the ED his troponin level was elevated at 0.41 and his BNP was 739. His creatinine was 1.8 and BUN 22 his hemoglobin was 10.8 but likely secondary to recent hip surgery. His WBC was 15.2. The ER physician gave him a baby aspirin and Plavix and put him on a heparin drip because of the elevated troponin level. His INR was slightly subtherapeutic at 1.9. A CTA of the chest was not done because of his elevated creatinine level. His oxygen saturations are normal and when I was talking to him he did not appear to be in any respiratory distress. He has had some slight swelling of both his feet but is not on any diuretic therapy. He is admitted for further evaluation with follow-up troponin levels and EKGs and cardiology consultation. 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 He is seeing Dr. Wilson (urologist) Atherosclerosis of the aorta 2D echocardiogram on 03/30/2017 showed pulmonary artery pressure 45.3 consistent with some mild pulmonary hypertension his EF was 55-60% 10 with mild mitral regurgitation and mild tricuspid regurgitation and mild aortic sclerosis. No history of angina or myocardial infarction History of renal calculi Carotid artery plaque noted bilaterally on 10-06-16 that was mild (<50%) No peptic ulcer disease No thyroid disease No stroke or seizures Osteoarthritis Surgical history: Removal of vocal cord polyps Left total hip replacement 01/21/2018 Allergies: None Medications: Clonidine 0.2 mg 3 times a day Byetta 10 mcg subcutaneous twice a day Hydrocodoneacetaminophen 10/325 1 tablet 4 times a day as needed since his hip replacement Lisinopril 20 mg 1 daily Metformin thousand milligrams twice a day Nifedipine extended release 60 mg daily Tamsulosin 0.4 mg p.o. daily Rosuvastatin 20 mg daily Warfarin 5 mg on Wednesday, Wednesday, Wednesday, and 2.5 mg on Wednesday, Wednesday, Wednesday Family history: His dad at age 75 of a stroke His mom at age 75 of cancer of the female organs Social history: Only occasionally has a drink of alcohol He quit smoking over 10 years ago and states he only smoked 2-3 cigarettes a day and only for 5 years Patient update on day of discharge: He is much improved from admission and has no shortness of breath. He is currently on room air and his oxygen. His respiratory walk test showed oxygen saturation around 97% on room air. He denies any chest pain. He is on Lovenox for his pulmonary embolism until his INR becomes therapeutic and has been cleared for discharge by cardiology. He has a Leos catheter still in from his urinary retention that he had after surgery earlier this month. He is seeing a urologist for this. It has been arranged for him to have home health care to assist him if he needs it with Lovenox injections however he states he has no problem giving himself injections because he gives himself an injection of Byetta each day. Home health care will be instructed to monitor his PT/INR and report that to the physician utility person over the weekend. DS: Diagnosis - Discharge Diagnosis (1) Pulmonary embolism Status: Acute (2) Deep vein thrombosis (DVT) of right lower extremity Status: Acute (3) History of total hip replacement Status: Acute (4) Chronic atrial fibrillation Status: Chronic (5) Type 2 diabetes mellitus with diabetic nephropathy Status: Chronic (6) BPH w urinary obs/LUTS Status: Chronic (7) Hypertension Status: Chronic (8) Acute kidney injury Status: Resolved (9) Shortness of breath Status: Resolved (10) Elevated troponin Status: Acute (11) Hyperlipidemia Status: Chronic (12) Carotid artery plaque Status: Chronic (13) Atherosclerosis of aorta Status: Chronic DS: Medications - Discharge Medications Prescriptions: enoxaparin [Lovenox] 110 mg SUBCUT Q12HR 10 Days #20 ml lisinopril 20 mg PO BID 30 Days #60 tab metoprolol tartrate 50 mg PO BID 30 Days #60 tab warfarin [Coumadin] 5 mg PO DAILY@1600 30 Days #30 tab DS: Summary Hospital Course: Patient was admitted and an ultrasound of the lower extremities was done to look for any DVT in view of his recent hip surgery and shortness of breath on admission. His creatinine was elevated at 1.8 so a ventilation perfusion lung scan was ordered. He was given IV fluids for his hypotension. Cardiology consult was obtained as well because of hypotension, shortness of breath, atrial fibrillation, and elevated troponin level. He was started on a heparin drip empirically in the emergency room until further testing was completed. He is Doppler venous ultrasound showed a nonobstructive thrombus in the common femoral vein on the right side. A ventilation perfusion lung scan showed intermediate probability of pulmonary embolism and it was suggestive of possible small scattered pulmonary emboli. Cardiology saw him and eventually transitioned him to Lovenox injections every 12 hours to replace the heparin drip which was stopped. A 2D echocardiogram was done and did not show any significant findings of LV dysfunction. He did have some nonsustained V. tach of about 14 beats and cardiology stopped his nifedipine and put him on metoprolol and recommended monitoring him on telemetry for 24 hours. He has had no subsequent ventricular arrhythmia. He has been on a sliding scale for his blood sugar control. His metformin was held initially because his creatinine was 1.8 and there was still an decision as to whether we would need to a CT pulmonary angiography. When his ventilation perfusion scan did not show evidence of a large emboli it was decided that he was not a candidate for TPA and could be managed with heparin or Lovenox. He has been mildly anemic but that is most likely secondary to his recent hip surgery. His hemoglobin on admission was a little higher but that was probably secondary to some mild dehydration. His hemoglobin was 9.3 today. It is been arranged for him to go home with Lovenox for now at 110 mg subq every 12 hours. Patient is familiar with giving himself injections because he injects himself daily with truong Adair for his diabetes control. I will have home health care continue with some home physical therapy for him to increase his ambulation since he had the recent hip surgery and also to recheck a PT/INR on 02/06/18 and again on 02/09/18 and call the results to the physician utility person over the holiday weekend. His discharge medications will be: Clonidine 0.2 mg 3 times a day Lisinopril 20 mg twice a day Metformin 1000 mg twice a day Tamsulosin 0.4 mg daily Warfarin 5 mg daily Rosuvastatin 20 mg daily Metoprolol 50 mg twice a day Lovenox 110 marked mg every 12 hours subq until his INR is therapeutic between 2.0 and 3.0. Byetta 10mcg Subq twice a day Hydrocodone 10/325 one 4 times a day prn He will followup with his PCP (Dr Hall) in one week. He will followup with urology (Dr Wilson) for his Leos cath management of his BPH/urinary retention. He will followup with cardiology in 1-2 weeks. - Time Spent with Patient Total time spent providing and/or coordinating discharge services: 60 minutes Greater than 30 minutes - Quality: VTE Deep Vein Thrombosis/Pulmonary Embolism Present on Admission: No Exam Vital signs: Vital Signs 02/03/18 14:00 02/03/18 17:55 02/03/18 18:30 Temperature 98 F Pulse Rate 84 75 Respiratory Rate 20 Blood Pressure 137/88 159/95 H Pulse Oximetry 98 Pulse Oximetry [Exertion on Room Air] Pulse Oximetry [Resting on Room Air] 02/03/18 20:00 02/04/18 00:00 02/04/18 03:14 Temperature 98.3 F 98.0 F Pulse Rate 57 L 77 Respiratory Rate 20 20 Blood Pressure 136/80 183/98 H 155/79 H Pulse Oximetry 97 97 Pulse Oximetry [Exertion on Room Air] Pulse Oximetry [Resting on Room Air] 02/04/18 05:10 02/04/18 07:25 02/04/18 08:00 Temperature 97.7 F 97.4 F L Pulse Rate 82 83 Respiratory Rate 20 20 Blood Pressure 169/90 H 183/99 H Pulse Oximetry 97 99 98 Pulse Oximetry [Exertion on Room Air] Pulse Oximetry [Resting on Room Air] 02/04/18 08:56 02/04/18 12:00 Temperature 97.0 F L Pulse Rate 72 Respiratory Rate 19 Blood Pressure 156/71 H Pulse Oximetry 99 Pulse Oximetry [Exertion on Room Air] 97 Pulse Oximetry [Resting on Room Air] 98 Intake & Output 02/03/18 02/04/18 02/04/18 18:59 06:59 18:59 Intake Total 1050 / 1050 590 / 590 2180 / 2180 Output Total 750 / 750 200 / 200 Balance 1050 / 1050 -160 / -160 1979 / 1979 Weight 112.1 kg Intake: IV 1050 / 1050 350 / 350 900 / 900 Heparin/D5W 25,000 U/250 mL 25, 50 / 50 000 unit In 250 ml @ Per Protocol IV.CONT TITRATE PRN Rx #:[id number] NS Inj 1,000 ML @ 84 mls/hr IV. 1000 / 1000 350 / 350 900 / 900 CONT .[id number] LOUISE Rx#: [id number] Oral 240 / 240 480 / 480 Other 800 / 800 Output: Urine 750 / 750 200 / 200 Other: Date of Last Bowel Movement 02/01/18 02/04/18 Narrative: This is a pleasant white male in no distress. HEENT: Pupils equal, EOMs intact, sclera nonicteric, mouth without lesions, TMs intact, nose without lesions Neck: No JVD, neck is supple, no carotid bruit Heart: Irregular rhythm without murmurs Lungs: Clear to auscultation Abdomen: Soft, nontender, no masses, no organomegaly Extremities: trace edema, pulses palpated, no calf tenderness Skin: Without lesions or rash Neuro: Alert, oriented, normal motor exam, sensation intact, cranial nerves intact Results Procedures completed during hospitalization: none Completed studies during hospitalization: Pulmonary Perfusion Imaging 02/02/18 00:00 CONCLUSION: 1. Moderate ventilatory defect with central tracer airway deposition. 2. Low to intermediate probability for pulmonary embolism. Chest X-Ray 02/02/18 02:23 CONCLUSION: Cardiomegaly. No acute cardiopulmonary disease Venous Doppler Study 02/02/18 08:11 CONCLUSION: 1. Nonocclusive thrombus mid right common femoral vein. 2. No deep venous thrombosis on the left. Laboratory Results - last 72 hr 02/02/18 02/02/18 02/02/18 02:30 02:30 02:30 CBC w Diff Auto diff final WBC 15.2 H RBC 3.55 L Hgb 10.8 L Hct 32.4 L MCV 91.5 MCH 30.5 MCHC 33.4 RDW 13.0 Plt Count 246 MPV 7.9 Neut % (Auto) 84.7 H Lymph % (Auto) 9.8 [place] % (Auto) 4.8 Eos % (Auto) 0.5 Baso % (Auto) 0.2 Neut # (Auto) 12.9 H Lymph # (Auto) 1.5 [place] # (Auto) 0.7 Eos # (Auto) 0.1 Baso # (Auto) 0.0 WBC Differential . Differential Comment . PT INR APTT Sodium 135 L Potassium 3.8 Chloride 100 Carbon Dioxide 19.1 L Anion Gap 16 H BUN 22 H Creatinine 1.80 H Estimated GFR 37 L POC Glucose Random Glucose 196 H Calcium 7.8 L Total Creatine Kinase Troponin I 0.41 H B-Natriuretic Peptide 739 H 02/02/18 02/02/18 02/02/18 02:30 06:27 09:35 CBC w Diff WBC RBC Hgb Hct MCV MCH MCHC RDW Plt Count MPV Neut % (Auto) Lymph % (Auto) [place] % (Auto) Eos % (Auto) Baso % (Auto) Neut # (Auto) Lymph # (Auto) [place] # (Auto) Eos # (Auto) Baso # (Auto) WBC Differential Differential Comment PT 18.8 H INR 1.9 APTT 30.6 42.0 H D Sodium Potassium Chloride Carbon Dioxide Anion Gap BUN Creatinine Estimated GFR POC Glucose Random Glucose Calcium Total Creatine Kinase 81 Troponin I 0.39 H B-Natriuretic Peptide 02/02/18 02/02/18 02/02/18 09:35 11:45 17:00 CBC w Diff WBC RBC Hgb Hct MCV MCH MCHC RDW Plt Count MPV Neut % (Auto) Lymph % (Auto) [place] % (Auto) Eos % (Auto) Baso % (Auto) Neut # (Auto) Lymph # (Auto) [place] # (Auto) Eos # (Auto) Baso # (Auto) WBC Differential Differential Comment PT INR APTT 36.2 H Sodium 137 Potassium 3.7 Chloride 102 Carbon Dioxide 23.2 Anion Gap 12 BUN 25 H Creatinine 1.70 H Estimated GFR 39 L POC Glucose Random Glucose 174 H Calcium 7.7 L Total Creatine Kinase 77 Troponin I 0.26 H B-Natriuretic Peptide 02/02/18 02/02/18 02/03/18 17:47 19:00 03:15 CBC w Diff WBC RBC Hgb Hct MCV MCH MCHC RDW Plt Count MPV Neut % (Auto) Lymph % (Auto) [place] % (Auto) Eos % (Auto) Baso % (Auto) Neut # (Auto) Lymph # (Auto) [place] # (Auto) Eos # (Auto) Baso # (Auto) WBC Differential Differential Comment PT INR APTT 32.8 H Sodium Potassium Chloride Carbon Dioxide Anion Gap BUN Creatinine Estimated GFR POC Glucose 128 H Random Glucose Calcium Total Creatine Kinase 69 Troponin I 0.20 H B-Natriuretic Peptide 02/03/18 02/03/18 02/03/18 04:30 04:30 04:35 CBC w Diff Auto diff final WBC 9.7 RBC 3.40 L Hgb 10.0 L Hct 30.6 L MCV 90.3 MCH 29.5 MCHC 32.7 RDW 12.9 Plt Count 230 MPV 7.8 Neut % (Auto) 78.8 H Lymph % (Auto) 13.7 [place] % (Auto) 5.5 Eos % (Auto) 1.6 Baso % (Auto) 0.4 Neut # (Auto) 7.7 Lymph # (Auto) 1.3 [place] # (Auto) 0.5 Eos # (Auto) 0.2 Baso # (Auto) 0.0 WBC Differential . Differential Comment . PT 13.3 H INR 1.3 APTT Sodium 141 Potassium 3.5 Chloride 107 Carbon Dioxide 25.3 Anion Gap 9 BUN 22 H Creatinine 1.10 Estimated GFR 65 L POC Glucose Random Glucose 136 H Calcium 7.9 L Total Creatine Kinase Troponin I B-Natriuretic Peptide 02/03/18 02/03/18 02/03/18 05:39 07:50 08:50 CBC w Diff WBC RBC Hgb Hct MCV MCH MCHC RDW Plt Count MPV Neut % (Auto) Lymph % (Auto) [place] % (Auto) Eos % (Auto) Baso % (Auto) Neut # (Auto) Lymph # (Auto) [place] # (Auto) Eos # (Auto) Baso # (Auto) WBC Differential Differential Comment PT INR APTT 26.0 D Sodium Potassium Chloride Carbon Dioxide Anion Gap BUN Creatinine Estimated GFR POC Glucose 154 H 151 H Random Glucose Calcium Total Creatine Kinase Troponin I B-Natriuretic Peptide 02/03/18 02/03/1818 12:04 17:20 00:52 CBC w Diff WBC RBC Hgb Hct MCV MCH MCHC RDW Plt Count MPV Neut % (Auto) Lymph % (Auto) [place] % (Auto) Eos % (Auto) Baso % (Auto) Neut # (Auto) Lymph # (Auto) [place] # (Auto) Eos # (Auto) Baso # (Auto) WBC Differential Differential Comment PT INR APTT Sodium Potassium Chloride Carbon Dioxide Anion Gap BUN Creatinine Estimated GFR POC Glucose 158 H 150 H 139 H Random Glucose Calcium Total Creatine Kinase Troponin I B-Natriuretic Peptide 02/04/18 02/04/18 02/04/18 05:11 05:11 05:11 CBC w Diff Auto diff final WBC 8.2 RBC 3.01 L Hgb 9.3 L Hct 27.3 L MCV 90.9 MCH 30.9 MCHC 34.0 RDW 13.7 Plt Count 210 MPV 8.6 Neut % (Auto) 74.2 H Lymph % (Auto) 16.9 [place] % (Auto) 6.3 Eos % (Auto) 2.4 Baso % (Auto) 0.2 Neut # (Auto) 6.1 Lymph # (Auto) 1.4 [place] # (Auto) 0.5 Eos # (Auto) 0.2 Baso # (Auto) 0.0 WBC Differential . Differential Comment . PT 12.5 H INR 1.2 APTT Sodium 142 Potassium 3.6 Chloride 108 H Carbon Dioxide 25.4 Anion Gap 9 BUN 23 H Creatinine 1.10 Estimated GFR 65 L POC Glucose Random Glucose 136 H Calcium 7.6 L Total Creatine Kinase Troponin I B-Natriuretic Peptide 02/04/18 02/04/18 02/04/18 06:33 07:38 11:42 CBC w Diff WBC RBC Hgb Hct MCV MCH MCHC RDW Plt Count MPV Neut % (Auto) Lymph % (Auto) [place] % (Auto) Eos % (Auto) Baso % (Auto) Neut # (Auto) Lymph # (Auto) [place] # (Auto) Eos # (Auto) Baso # (Auto) WBC Differential Differential Comment PT INR APTT Sodium Potassium Chloride Carbon Dioxide Anion Gap BUN Creatinine Estimated GFR POC Glucose 141 H 147 H 179 H Random Glucose Calcium Total Creatine Kinase Troponin I B-Natriuretic Peptide Labs on day of discharge: Labs from last 24 hours 02/04/18 02/04/1802/04/18 11:42 07:38 06:33 CBC w Diff WBC RBC Hgb Hct MCV MCH MCHC RDW Plt Count MPV Neut % (Auto) Lymph % (Auto) [place] % (Auto) Eos % (Auto) Baso % (Auto) Neut # (Auto) Lymph # (Auto) [place] # (Auto) Eos # (Auto) Baso # (Auto) WBC Differential Differential Comment PT INR Sodium Potassium Chloride Carbon Dioxide Anion Gap BUN Creatinine Estimated GFR POC Glucose 179 H 147 H 141 H Random Glucose Calcium 02/04/18 02/04/18 02/04/18 05:11 05:11 05:11 CBC w Diff Auto diff final WBC 8.2 RBC 3.01 L Hgb 9.3 L Hct 27.3 L MCV 90.9 MCH 30.9 MCHC 34.0 RDW 13.7 Plt Count 210 MPV 8.6 Neut % (Auto) 74.2 H Lymph % (Auto) 16.9 [place] % (Auto) 6.3 Eos % (Auto) 2.4 Baso % (Auto) 0.2 Neut # (Auto) 6.1 Lymph # (Auto) 1.4 [place] # (Auto) 0.5 Eos # (Auto) 0.2 Baso # (Auto) 0.0 WBC Differential . Differential Comment . PT 12.5 H INR 1.2 Sodium 142 Potassium 3.6 Chloride 108 H Carbon Dioxide 25.4 Anion Gap 9 BUN 23 H Creatinine 1.10 Estimated GFR 65 L POC Glucose Random Glucose 136 H Calcium 7.6 L 02/04/18 02/03/18 00:52 17:20 CBC w Diff WBC RBC Hgb Hct MCV MCH MCHC RDW Plt Count MPV Neut % (Auto) Lymph % (Auto) [place] % (Auto) Eos % (Auto) Baso % (Auto) Neut # (Auto) Lymph # (Auto) [place] # (Auto) Eos # (Auto) Baso # (Auto) WBC Differential Differential Comment PT INR Sodium Potassium Chloride Carbon Dioxide Anion Gap BUN Creatinine Estimated GFR POC Glucose 139 H 150 H Random Glucose Calcium - Impressions ITS Impressions Pulmonary Perfusion Imaging 02/02/18 00:00 CONCLUSION: 1. Moderate ventilatory defect with central tracer airway deposition. 2. Low to intermediate probability for pulmonary embolism. Chest X-Ray 02/02/18 02:23 CONCLUSION: Cardiomegaly. No acute cardiopulmonary disease Venous Doppler Study 02/02/18 08:11 CONCLUSION: 1. Nonocclusive thrombus mid right common femoral vein. 2. No deep venous thrombosis on the left. Discharge Plan - Discharge Disposition Patient Disposition: W/Home Health Service - Discharge Condition Condition: Stable - Discharge Order Discharge Orders: Discharge Order (Routine); Ordered 02/04/18 Ordered By: Hernandez Thomas ED Use Only Admit Order (Routine); Ordered 02/02/18 Ordered By: Hoang Acosta - Discharge Details Anticipated Discharge Date: 02/04/18 Discharge Comment: Home health care requested to monitor his PT/INR on 02-06-18 and 02-09-18. Call result to utility person physician. Continue Lovenox 110mg every 12 hours SQ and Warfarin as ordered. He will need also to followup with his urologist in regard to his Leos catheter. - Physicians Team Primary Care Provider: Ap Sexton Attending Provider: Hernandez Thomas Other Providers: Matt Hughes MD ; Shahid Martinez MD ; Charlie Bashir MD
== END 2018-02-04 15:00 | disposition home health service (06) ==
LOC: PHEDA 02:00 → PHED 02:00 → PHEDA 04:55 → PH3 05:01 → PHICU 09:17 → PH3 02-03 16:53
PROVIDERS: ADMIT Family Medicine; ATTEND Family Medicine

== ENCOUNTER 2018-02-09 01:15 | Inpatient (IN) ==
--- NOTE | 2018-02-09 05:20 | XR ---
EXAM DATE: 02/09/2018 5:18 AM EST AGE/SEX: 73 years / Male INDICATIONS: Shortness of breath. CLINICAL DATA: This is the patient's initial encounter. Patient reports that signs and symptoms have been present for 1 day and indicates a pain score of 0/10. MEDICAL/SURGICAL HISTORY: None. None. COMPARISON: [facility]PO, CHEST 1V SINGLE AP, 02/02/2018. . FINDINGS: No new focal pleural or parenchymal opacities. Cardiac silhouette remains enlarged. Remainder of the exam is unchanged. CONCLUSION: 1. Stable cardiomegaly. 2. No acute abnormality or significant interval change. Electronically signed by: Bang Stratton MD Board Certified Radiologist 02/09/2018 5:19 AM LANDRY T
[2018-02-09 05:39] LABS: Baso % (Auto) 0.3 % (0.0-2.0); Eos # (Auto) 0.2 th/mm3 (0.0-0.4); Eos % (Auto) 1.7 % (0.0-4.0); Hematocrit 33.5 % (39.0-51.0); Lymph # (Auto) 1.3 th/mm3 (1.0-4.8); Lymph % (Auto) 13.8 % (9.0-44.0); Mean Corpuscular HGB Conc 32.7 % (32.0-36.0); Mean Corpuscular Volume 91.7 fL (80.0-100.0); Mean Platelet Volume 8.5 fL (7.0-11.0); Mono # (Auto) 0.5 th/mm3 (0.0-0.9); Mono % (Auto) 4.8 % (0.0-8.0); Neut # (Auto) 7.4 th/mm3 (1.8-7.7); Neut % (Auto) 79.4 % (16.0-70.0); Platelet Count 284 th/mm3 (150-450); Red Blood Count 3.66 mil/mm3 (4.50-5.90); Red Cell Distribution Width 13.5 % (11.6-17.2); White Blood Count 9.4 th/mm3 (4.0-11.0)
[2018-02-09 05:43] LABS: Bilirubin,Urine Negative (Negative); Clarity,Urine Clear (Clear); Color,Urine Yellow (Yellw/Straw); Glucose,Urine (UA) Negative (Negative); Leukocyte Esterase,Urine Negative (Negative); Nitrite,Urine Negative (Negative); Urobilinogen,Urine 0.2 mg/dL (Less than 2)
[2018-02-09 05:44] LABS: Chloride 104 meq/L (98-107); Potassium 3.3 meq/L (3.5-5.1); Sodium 138 meq/L (136-145)
[2018-02-09 05:44] LABS: Squamous Epithelial Cell,Urine 0-5 /hpf (0-5); WBC,Urine 0-5 /hpf (0-5)
[2018-02-09 05:47] LABS: Calcium 8.5 mg/dL (8.5-10.1)
[2018-02-09 05:48] LABS: Albumin 3.5 g/dL (3.4-5.0); Anion Gap 9 meq/L (5-15); Blood Urea Nitrogen 13 mg/dL (7-18); Carbon Dioxide 24.6 meq/L (21.0-32.0); Glucose,Random 134 mg/dL (74-106); INR 2.4 Ratio; Magnesium 1.4 mg/dL (1.5-2.5); Prothrombin Time 24.6 sec (9.8-11.6)
[2018-02-09 05:51] LABS: Alanine Aminotransferase 36 U/L (12-78); Aspartate Aminotransferase 23 U/L (15-37); Glomerular Filtration Rate 73 mL/min (>89)
[2018-02-09 05:52] LABS: Total Protein 7.3 g/dL (6.4-8.2)
[2018-02-09 05:53] LABS: Alkaline Phosphatase 72 U/L (45-117)
[2018-02-09 05:56] LABS: Troponin I 0.03 ng/mL (0.02-0.05)
--- NOTE | 2018-02-09 06:52 | ED ---
HPI General Chief Complaint: Respiratory Symptoms Stated Complaint: unable to breath/back discomfort Time Seen by Provider: 02/09/18 06:50 Source: patient Mode of arrival: ambulatory Limitations: no limitations History of Present Illness 73-year-old male presents for complaint of back pain when he attempts to lay down and also shortness of breath. No chest pain. Patient was recently hospitalized 02/02/18 through 02/04/18. Patient was admitted for same. Patient has history of chronic atrial fibrillation on warfarin therapy he is a type II diabetic with peripheral neuropathy dyslipidemia HTN atherosclerosis of the aorta history of kidney stones renal insufficiency and recent left hip total replacement 01/21/18. During the hospitalization he was unable to have a CT pulmonary angiogram due to renal insufficiency and underwent a VQ scan which was moderate for risk of PE. Patient was also reportedly found to have a DVT of the right lower extremity by ultrasound. Patient states that he has been on Lovenox for his pulmonary embolism as his INR was not therapeutic at time of discharge. Patient states that since being sent home he has discontinued using the Lovenox because it causes him discomfort. Patient also complaining of increasing gait bruising. Patient states that he has been taking his warfarin and has no problems taking warfarin and he is asymptomatic and tolerates this medication well. Patient is also identified during that hospitalization to have an elevated troponin I0.41 and elevated BNP. Per review of patient's medical record from 02/02/18 to 01/26/2018 patient was identified to have a nuclear myocardial scan 03/18/16 with no evidence of ischemia and ejection fraction of 42% with global hypokinesis. A 2D echo however identified patient' s ejection fraction to be 55-60%. Patient is followed by churn driller Dr. Ramos. While in the hospital he had a repeat 2D echo that showed no significant LV dysfunction. Patient at time of discharge was sent home on clonidine lisinopril metformin warfarin rosuvastatin metoprolol and Lovenox as well as Byetta and as needed hydrocodone plan was for patient to follow-up with his primary Dr. Sexton and his urologist Dr. Wilson for removal of his indwelling catheter and his churn driller. Plan was to keep patient on Lovenox until his INR became therapeutic between 2 and 3. Discharge diagnosis was PE right lower extremity DVT atrial fibrillation on anticoagulation therapy renal insufficiency resolution of elevated troponin felt to be related to patient's renal function and vascular congestion with elevated BNP. Patient denies any chest pain. Patient denies referred neck jaw back shoulder arm pain. Patient denies any dyspnea on exertion or orthopnea. Patient here states that he feels that the Lovenox is causing his symptoms. Patient states that he is concerned about his back pain when he lays down. Patient has had no upper extremity or new lower extremity pain or swelling. Patient had no fever or chills. Patient had no hemoptysis. Patient has not noticed any hematuria or blood in his stool. Patient has not had easy fatigue with exertion or at rest. MD Complaint: Reports shortness of breath (back pain) Onset (ago): day(s) Context: Reports recent illness and trauma/injury (Recent surgery 12/22/17); Denies occurred during exertion, choking/aspiration, medication noncompliance, allergen exposure, recent travel, smoke/fume exposure and anxiety Severity: similar to previous episodes Consistency/Duration: intermittent Relieving factors: nothing Exacerbating factors: lying flat, exertion, new medication, movement, coughing, inspiration, stress, talking, allergies, cold air, warm air, humidity, strong odors, smoke and deep breaths Known history of: Reports diabetes; Denies COPD, asthma and congestive heart failure (normal EF 01/2018) Associated symptoms: Reports orthopnea; Denies chest pain, pain with inspiration , fever, cough, wheezing, sputum production, lower extremity pain, polyuria, polydipsia, paresthesias, palpitations, carpopedal spasm, hemoptysis, diaphoresis, nausea/vomiting, syncope, abdominal pain, rash, sense of impending doom, chest congestion, dizziness and lightheadedness Treatment prior to arrival: Reports none Related Data Home oxygen amount: none Home Medications Medication Instructions Recorded Confirmed clonidine HCl 0.2 mg PO TID 01/17/18 02/09/18 exenatide [Byetta] 10 mcg SUBCUT BID 01/17/18 02/09/18 hydrocodone-acetaminophen 1 tab PO Q4H PRN 01/17/18 02/09/18 metformin 1,000 mg PO BID 01/17/18 02/09/18 tamsulosin [Flomax] 0.4 mg PO DAILY 01/17/18 02/09/18 rosuvastatin 20 mg PO DAILY 01/19/18 02/09/18 Previous Rx's Medication Instructions Recorded enoxaparin [Lovenox] 110 mg SUBCUT Q12HR 10 Days #20 ml 02/04/18 lisinopril 20 mg PO BID 30 Days #60 tab 02/04/18 metoprolol tartrate 50 mg PO BID 30 Days #60 tab 02/04/18 warfarin [Coumadin] 5 mg PO DAILY@1600 30 Days #30 tab 02/04/18 Allergies Allergy/AdvReac Type Severity Reaction Status Date / Time No Known Allergies Allergy Verified 02/02/18 02:15 Review of Systems ROS: all other systems reviewed are negative [facility] Medical History Medical History Arthritis (Acute) Atrial fibrillation (Acute) Diabetes (Acute) Enlarged prostate (Acute) [place] (hard of hearing) (Acute) Hypertension (Acute) Reflux gastritis (Acute) Surgical History Surgical History Status post total hip replacement, left (Acute) Social History Social History Substance History: No History of Abuse Second Hand Smoke Exposure: No Smoking Status: Former smoker Tobacco Type: Cigarettes How Often Do You Have a Drink Containing Alcohol: Never Recent Travel in [facility] within the Last 8 Weeks: No Recent Out of Country Travel within the Last 8 Weeks: No Immunization History Tetanus Immunization: <5 Years Exam Narrative Exam Narrative: GENERAL: Well-nourished, well-developed patient. SKIN: Focused skin assessment warm/dry. HEAD: Normocephalic. EYES: No scleral icterus. No injection or drainage. NECK: Supple, trachea midline. No JVD or lymphadenopathy. CARDIOVASCULAR: Irregular rate and rhythm without murmurs, gallops, or rubs. RESPIRATORY: Breath sounds equal bilaterally. No accessory muscle use. GASTROINTESTINAL: Abdomen soft, non-tender, nondistended. MUSCULOSKELETAL: No cyanosis, or edema. BACK: Nontender without obvious deformity. No CVA tenderness. Course Initial Documented Vital Signs Temperature 97.3 F L 02/09/18 01:22 Pulse Rate 75 02/09/18 01:22 Respiratory Rate 20 02/09/18 01:22 Blood Pressure 166/99 H 02/09/18 01:22 Pulse Oximetry 97 02/09/18 01:22 Last Documented Vital Signs Temperature 97.3 F L 02/09/18 01:22 Pulse Rate 88 02/09/18 07:15 Respiratory Rate 18 02/09/18 07:15 Blood Pressure 167/89 H 02/09/18 07:15 Pulse Oximetry 98 02/09/18 07:15 Medical Decision Making MDM Narrative Medical decision making narrative: Patient placed on animal care supervisor with continuous pulse oximetry IV access obtained specimens collected and sent for resulting. Patient complains of back pain resting supine and also has episodes of feeling short of breath she has had on and off since admission 02/02/18 orthopnea and shortness of breath concerning for volume overload/failure however patient noted to have normal EF and lungs are clear to auscultation. Patient also complains of pain with resting supine that is not present when sitting upright or with exertion. Patient does not describe pleuritic chest pain. No episodes evidence of bruising or injury to the skin or upper back. Patient recently discharged from hospital with diagnosis of pulmonary embolism on Lovenox being bridged to Coumadin right lower extremity nonocclusive DVT chronic atrial fibrillation on Coumadin therapy diabetes chronic BPH with indwelling catheter hypertension acute kidney disease while he was hospitalized that resolved prior to discharge elevated troponin that trended to normal dyslipidemia and atherosclerosis of the aorta and carotid. Patient states he has stopped the bridging Lovenox on his own as he is convinced is causing his symptoms and has continued his warfarin therapy. Patient denies any fever chills. Specimens collected and sent for resulting. EKG shows atrial fibrillation with no acute ST elevation or injury pattern. EKG atrial fibrillation with controlled ventricular rate of [address] elevation age-indeterminate anterior CA CBC with automated differential total white cell count is 9400 with hemoglobin of 11; 79% neutrophils INR is therapeutic at 2.4 metabolic panel remarkable for potassium of 3.3 BUN and creatinine are 13 and 1.0 respectively. Troponin I is 0.03 within normal limits BNP is elevated 852 comparison from 790. CHEST X-RAY: No infiltrate, pneumothorax or mediastinal widening. Mild vascular prominence stable cardiomegaly. In view of patient having normal renal function and unable to have VQ scan but ongoing complaint proceed with CTA pulmonary angiogram CT is consistent with PE INR is therapeutic patient has known DVT by previous ultrasound. At this point time all values seem to essentially be stable patient is informed that his warfarin is therapeutic. Patient will be discontinued off of Lovenox. Patient will follow up with his primary care provider. Patient's case discussed with viviana [facility] BP: 167/89 o2 sat ra: 97% hr 83 [id number] non-laboured discussed with DR Sarah Discussed with Dr Garnica --admit to his service --requests consult to DR Castro cardiology -- re: consult for cardiology assessment as patient may require surgical embolectomy if becomes unstable call to Dr Castro Medical Screen Exam Complete: Yes Emergency Medical Condition: Yes Lab Data Result diagrams: 02/09/18 05:30 02/09/18 05:30 Lab Results 02/09/18 02/09/18 02/09/18 Range/Units 05:20 05:30 05:30 CBC w Diff Auto diff final WBC 9.4 (4.0-11.0) th/mm3 RBC 3.66 L (4.50-5.90) mil/mm3 Hgb 11.0 L (13.0-17.0) gm/dL Hct 33.5 L (39.0-51.0) % MCV 91.7 (80.0-100.0) fL MCH 30.0 (27.0-34.0) pg MCHC 32.7 (32.0-36.0) % RDW 13.5 (11.6-17.2) % Plt Count 284 D (150-450) th/mm3 MPV 8.5 (7.0-11.0) fL Neut % (Auto) 79.4 H (16.0-70.0) % Lymph % (Auto) 13.8 (9.0-44.0) % [place] % (Auto) 4.8 (0.0-8.0) % Eos % (Auto) 1.7 (0.0-4.0) % Baso % (Auto) 0.3 (0.0-2.0) % Neut # (Auto) 7.4 (1.8-7.7) th/mm3 Lymph # (Auto) 1.3 (1.0-4.8) th/mm3 [place] # (Auto) 0.5 (0.0-0.9) th/mm3 Eos # (Auto) 0.2 (0.0-0.4) th/mm3 Baso # (Auto) 0.0 (0.0-0.2) th/mm3 WBC Differential . Differential Comment . PT 24.6 H D (9.8-11.6) sec INR 2.4 Ratio APTT 31.0 (23.4-31.7) sec Sodium (136-145) meq/L Potassium (3.5-5.1) meq/L Chloride (98-107) meq/L Carbon Dioxide (21.0-32.0) meq/L Anion Gap (5-15) meq/L BUN (7-18) mg/dL Creatinine (0.60-1.30) mg/dL Estimated GFR (>89) mL/min Random Glucose (74-106) mg/dL Calcium (8.5-10.1) mg/dL Magnesium (1.5-2.5) mg/dL Total Bilirubin (0.2-1.0) mg/dL AST (15-37) U/L ALT (12-78) U/L Alkaline Phosphatase (45-117) U/L Troponin I (0.02-0.05) ng/mL B-Natriuretic Peptide (0-100) pg/mL Total Protein (6.4-8.2) g/dL Albumin (3.4-5.0) g/dL Urine Color Yellow (Yellw/Straw) Urine Clarity Clear (Clear) Urine pH 6.0 (5.0-8.5) Ur Specific [place] 1.010 (1.002-1.035) Urine Protein Trace (Neg-Trace) mg/dL Urine Glucose (UA) Negative (Negative) mg/dL Urine Ketones Negative (Negative) mg/dL Urine Occult Blood Trace (Negative) Urine Nitrate Negative (Negative) Urine Bilirubin Negative (Negative) Urine Urobilinogen 0.2 (Less than 2) mg/dL Ur Leukocyte Esterase Negative (Negative) Urine RBC 4-15 H (0-3) /hpf Urine WBC 0-5 (0-5) /hpf Ur Squamous Epith Cells 0-5 (0-5) /hpf Urine Yeast Few H (None) /hpf Micro UA Comment Culture not ind Ur Microscopic Review Microscopic reviewed Urine Culture Comments Culture not ind 02/09/18 02/09/18 Range/Units 05:30 05:30 CBC w Diff WBC (4.0-11.0) th/mm3 RBC (4.50-5.90) mil/mm3 Hgb (13.0-17.0) gm/dL Hct (39.0-51.0) % MCV (80.0-100.0) fL MCH (27.0-34.0) pg MCHC (32.0-36.0) % RDW (11.6-17.2) % Plt Count (150-450) th/mm3 MPV (7.0-11.0) fL Neut % (Auto) (16.0-70.0) % Lymph % (Auto) (9.0-44.0) % [place] % (Auto) (0.0-8.0) % Eos % (Auto) (0.0-4.0) % Baso % (Auto) (0.0-2.0) % Neut # (Auto) (1.8-7.7) th/mm3 Lymph # (Auto) (1.0-4.8) th/mm3 [place] # (Auto) (0.0-0.9) th/mm3 Eos # (Auto) (0.0-0.4) th/mm3 Baso # (Auto) (0.0-0.2) th/mm3 WBC Differential Differential Comment PT (9.8-11.6) sec INR Ratio APTT (23.4-31.7) sec Sodium 138 (136-145) meq/L Potassium 3.3 L (3.5-5.1) meq/L Chloride 104 (98-107) meq/L Carbon Dioxide 24.6 (21.0-32.0) meq/L Anion Gap 9 (5-15) meq/L BUN 13 (7-18) mg/dL Creatinine 1.00 (0.60-1.30) mg/dL Estimated GFR 73 L (>89) mL/min Random Glucose 134 H (74-106) mg/dL Calcium 8.5 (8.5-10.1) mg/dL Magnesium 1.4 L (1.5-2.5) mg/dL Total Bilirubin 0.7 (0.2-1.0) mg/dL AST 23 (15-37) U/L ALT 36 (12-78) U/L Alkaline Phosphatase 72 (45-117) U/L Troponin I 0.03 (0.02-0.05) ng/mL B-Natriuretic Peptide 852 H (0-100) pg/mL Total Protein 7.3 (6.4-8.2) g/dL Albumin 3.5 (3.4-5.0) g/dL Urine Color (Yellw/Straw) Urine Clarity (Clear) Urine pH (5.0-8.5) Ur Specific [place] (1.002-1.035) Urine Protein (Neg-Trace) mg/dL Urine Glucose (UA) (Negative) mg/dL Urine Ketones (Negative) mg/dL Urine Occult Blood (Negative) Urine Nitrate (Negative) Urine Bilirubin (Negative) Urine Urobilinogen (Less than 2) mg/dL Ur Leukocyte Esterase (Negative) Urine RBC (0-3) /hpf Urine WBC (0-5) /hpf Ur Squamous Epith Cells (0-5) /hpf Urine Yeast (None) /hpf Micro UA Comment Ur Microscopic Review Urine Culture Comments Imaging Data Radiologist's impression: Chest X-Ray 02/09/18 05:08 CONCLUSION: 1. Stable cardiomegaly. 2. No acute abnormality or significant interval change. Chest CTA 02/09/18 06:25 CONCLUSION: 1. Large saddle embolism within the distal portion of the right main pulmonary artery extending into the right upper and lower lobes. Smaller segmental emboli are noted within the left upper and lower lobe pulmonary arteries. 2. Marked cardiomegaly and coronary artery calcifications. 3. Hepatosplenomegaly. 4. Degenerative changes throughout the thoracic spine. Discharge Plan Discharge Disposition Patient Disposition: ED Admit(ED Internal Use Only) Discharge Condition Condition: Stable Discharge Order Discharge Orders: ED Use Only Admit Order (Routine); Ordered 02/09/18 Ordered By: Tiffany Velázquez Discharge Details Diagnosis: Pulmonary embolism, Deep vein thrombosis (DVT) of right lower extremity, Dyspnea Physicians Team ED Provider: Tiffany Velázquez Primary Care Provider: Ap Sexton Attending Provider: Mack Garnica ED Status: Admitted Patient
--- NOTE | 2018-02-09 07:19 | CT ---
EXAM DATE: 02/09/2018 7:09 AM EST AGE/SEX: 73 years / Male INDICATIONS: Shortness of breath in supine position. CLINICAL DATA: This is the patient's initial encounter. Patient reports that signs and symptoms have been present for 2 days and indicates a pain score of 6/10. MEDICAL/SURGICAL HISTORY: Diabetes. Hypertension. None. RADIATION DOSE: 18.10 CTDI (mGy) COMPARISON: No prior exams available for comparison. TECHNIQUE: Volumetric scanning was performed using a multi-row detector CT scanner during bolus infu ganga of 75 ml Omnipaque 350 (iohexol) nonionic water-soluble contrast as a single exam dose. The melly a was post processed with a variety of visualization algorithms including full volume maximum intensi ty projection and sliding thin slab reformation. Using automated exposure control and adjustment of t he mA and/or kV according to patient size, radiation dose was kept as low as reasonably achievable to obtain optimal diagnostic quality images. DICOM format image data is available electronically for r eview and comparison. FINDINGS: Pulmonary Arteries: There is a large saddle embolism within the distal portion of the right main pul monary artery extending into the right upper and lower lobes. Smaller segmental emboli are noted with in the left upper and lower lobe pulmonary arteries. Lung: No infiltrates seen. Effusion: None. Mediastinum: No evidence of mediastinal or hilar adenopathy. Marked cardiomegaly is noted. Coronary artery calcifications are noted. Other: The axilla is unremarkable. Hepatosplenomegaly is noted. Degenerative changes are noted throu ghout the thoracic spine. CONCLUSION: 1. Large saddle embolism within the distal portion of the right main pulmonary artery extending into the right upper and lower lobes. Smaller segmental emboli are noted within the left upper and lower lobe pulmonary arteries. 2. Marked cardiomegaly and coronary artery calcifications. 3. Hepatosplenomegaly. 4. Degenerative changes throughout the thoracic spine. Electronically signed by: Ricardo Winter MD Board Certified Radiologist 02/09/2018 7:18 AM EST
[2018-02-09] MEDS ORDERED: Heparin 10,000 UNITS/10 ML Vial (for IV use) IV.PUSH STA (08:40)
[2018-02-09] MEDS ORDERED: Bisacodyl 10 MG Supp RECTAL PRN (09:20)
[2018-02-09] MEDS ORDERED: Acetaminophen 325 MG Tablet PO PRN (09:23)
[2018-02-09] MEDS: Heparin Drip 25,000 UNIT/250 ML BAG IV.CONT PRN ×2 (09:27→22:31)
[2018-02-09] MEDS ORDERED: hydrALAZINE HCl Inj 20 MG/ML Vial IV.PUSH ONE (13:00)
--- NOTE | 2018-02-09 13:34 | P.HPCC ---
History of Present Illness Primary Care Physician: Ap Sexton MD History of Present Illness: 73-year-old male who underwent right hip surgery on 12/22/17. He presented back to the hospital with shortness of breath and was hospitalized from 1218 through 02/04. He had a VQ scan which was intermediate probability for PE at the time however could not have a CTA due to elevated creatinine. He was also diagnosed with right lower extremity DVT. He was evaluated by cardiology for elevated troponin and underwent a 2D echo which revealed EF LVEF 55-60% and normal RV function. He has a prior history of atrial fibrillation and is followed by Dr. Ramos. He did have retention of urine after his hip surgery for which he had a Leos catheter placed and was to follow-up with his urologist Dr. Wilson. Patient was discharged on 02/04 with Lovenox and Coumadin. Patient presented back to the ER at [facility] today with pain in the upper back which was severe as well as chest pain. He underwent a CTA pulmonary angiogram which revealed large pulmonary embolism involving right main pulmonary artery as well as small emboli in subsegmental branches on the left. His INR was 2.4 today. He was started on heparin for anticoagulation and was accepted for admission by critical care medicine service and transferred to [facility] in case he required a surgical embolectomy or IR intervention. When I evaluated the patient in the ICU he was resting comfortably on room air and was actually hypertensive. Inpatient Certification: I certify that the inpatient services were ordered in accordance with Medicare regulations governing the order. This includes certification that hospital inpatient services are reasonable and necessary and in the case of services not specified as inpatient-only under 42 CFR 419.22(n), that they are appropriately provided as inpatient services in accordance to with the 2-midnight benchmark under 43 CFR 412.3(e) Estimated Total Length of Stay (Days): 8 Plans for Post Hospital Care: Not yet determined Review of Systems All other systems reviewed negative except as stated in HPI PMFSH - History History Provided By: Patient - Medical History Medical History: Medical History (Last Reviewed 02/09/18 @ 07:08 by Tiffany Velázquez MD) Arthritis Atrial fibrillation Diabetes Enlarged prostate NIKOLAI (hard of hearing) Hypertension Reflux gastritis - Surgical History Surgical History: Surgical History (Last Reviewed 02/09/18 @ 07:08 by Tiffany Velázquez MD) Status post total hip replacement, left - Tobacco History Second Hand Smoke Exposure: No Smoking Status: Former smoker Tobacco Type: Cigarettes - Alcohol History How Often Do You Have a Drink Containing Alcohol: Never - Substance Use History Substance History: No History of Abuse - Travel History Recent Travel in the [place] Within the Last 8 Weeks: No Recent Travel Out of the Country Within the Last 8 Weeks: No - Immunization History Tetanus Immunization: <5 Years Medications and Allergies Active Medications: Active Medications Acetaminophen (Tylenol) 650 mg PO Q6H PRN PRN Reason: PAIN 1-5 ORFEVER >101F Al Hydroxide/Mg Hydroxide (Milk Of Magnesia Liq) 30 ml PO Q12H PRN PRN Reason: Mild Constipation Bisacodyl (Dulcolax Supp) 10 mg RECTAL DAILY PRN PRN Reason: SEVERE CONSITIPATION Chlorhexidine Gluconate (Chlorhexidine 2% Cloth) 3 pack TOPICAL DAILY@0400 LOUISE Stop: 02/15/18 03:59 Chlorhexidine Gluconate (Chlorhexidine 2% Cloth) 3 pack TOPICAL DAILY@0400 PRN PRN Reason: Extra cloth needed Stop: 02/15/18 03:59 Famotidine (Pepcid) 20 mg PO BID LOUISE Famotidine (Pepcid Pf Inj) 20 mg IV.PUSH Q12HR LOUISE Heparin Sodium (Porcine) (Heparin Inj) 2,500 units IV.PUSH UNSCH PRN PRN Reason: aPTT 25-39 Hydralazine HCl (Apresoline Inj) 20 mg IV.PUSH Q4H PRN PRN Reason: SBP > 160 Heparin Sodium/Dextrose (Heparin/D5w 25,000 U/250 Ml) 25,000 unit in 250 mls @ 18 mls/hr IV.CONT TITRATE PRN; Protocol PRN Reason: Per Protocol Last Admin: 02/09/18 09:27 Dose: 1,800 units/hr, 18 mls/hr Potassium Chloride/Dextrose/Sod Cl (D5w/1/2ns + Kcl 20 Meq Inj) 1,000 mls @ 100 mls/hr IV.CONT .Q10H LOUISE Lactulose (Lactulose Liq) 30 ml PO DAILY PRN PRN Reason: SEVERE CONSITIPATION Oxycodone/Acetaminophen (Percocet 5/325 Mg) 2 tab PO Q4H PRN PRN Reason: PAIN SCALE 6 TO 10 Senna/Docusate Sodium ([place]-Colace) 1 tab PO BID LOUISE Sennosides (Senokot) 17.2 mg PO Q12H PRN PRN Reason: Moderate Constipation Sodium Chloride (Ns Flush) 2 ml IV.FLUSH BID LOUISE Sodium Chloride (Ns Flush) 2 ml IV.FLUSH PRN PRN PRN Reason: FLUSH AFTER USING IV ACCESS Allergies Allergy/AdvReac Type Severity Reaction Status Date / Time No Known Allergies Allergy Verified 02/02/18 02:15 Home Medications Medication Instructions Recorded Confirmed Type clonidine HCl 0.2 mg PO TID 01/17/18 02/09/18 History exenatide [Byetta] 10 mcg SUBCUT BID 01/17/18 02/09/18 History hydrocodone-acetaminophen 1 tab PO Q4H PRN 01/17/18 02/09/18 History metformin 1,000 mg PO BID 01/17/18 02/09/18 History tamsulosin [Flomax] 0.4 mg PO DAILY 01/17/18 02/09/18 History rosuvastatin 20 mg PO DAILY 01/19/18 02/09/18 History Results - Labs CBC & Chem 7: 02/09/18 05:30 02/09/18 05:30 Labs: Short CBC 02/09/18 Range/Units 05:30 WBC 9.4 (4.0-11.0) th/mm3 Hgb 11.0 L (13.0-17.0) gm/dL Hct 33.5 L (39.0-51.0) % Plt Count 284 D (150-450) th/mm3 [facility] 02/09/18 05:30 Sodium 138 Potassium 3.3 L Chloride 104 Carbon Dioxide 24.6 BUN 13 Creatinine 1.00 Calcium 8.5 Cardiac Enzymes 02/09/18 Range/Units 05:30 Troponin I 0.03 (0.02-0.05) ng/mL Liver Function 02/09/18 Range/Units 05:30 Total Bilirubin 0.7 (0.2-1.0) mg/dL AST 23 (15-37) U/L ALT 36 (12-78) U/L Alkaline Phosphatase 72 (45-117) U/L Albumin 3.5 (3.4-5.0) g/dL Urine 02/09/18 Range/Units 05:20 Urine Color Yellow (Yellw/Straw) Urine Clarity Clear (Clear) Urine pH 6.0 (5.0-8.5) Ur Specific [place] 1.010 (1.002-1.035) Urine Protein Trace (Neg-Trace) mg/dL Urine Glucose (UA) Negative (Negative) mg/dL - Imaging Impressions Chest X-Ray 02/09/18 05:08 CONCLUSION: 1. Stable cardiomegaly. 2. No acute abnormality or significant interval change. Chest CTA 02/09/18 06:25 CONCLUSION: 1. Large saddle embolism within the distal portion of the right main pulmonary artery extending into the right upper and lower lobes. Smaller segmental emboli are noted within the left upper and lower lobe pulmonary arteries. 2. Marked cardiomegaly and coronary artery calcifications. 3. Hepatosplenomegaly. 4. Degenerative changes throughout the thoracic spine. Exam Vital signs: Vital Signs 02/09/18 01:22 02/09/18 03:55 02/09/18 05:30 Temperature 97.3 F L Pulse Rate 75 86 72 Respiratory Rate 20 16 Blood Pressure 166/99 H 180/87 H Pulse Oximetry 97 98 96 02/09/18 07:00 02/09/18 07:15 02/09/18 10:00 Temperature Pulse Rate 88 88 92 H Respiratory Rate 18 18 Blood Pressure 167/89 H 174/98 H Pulse Oximetry 98 98 98 Intake & Output 02/08/18 02/09/18 02/09/18 18:59 06:59 18:59 Weight 109.2 kg Narrative: HEENT/Neuro: No pallor or icterus, tongue moist, SUNITA, Awake alert oriented 3 , nonfocal grossly, moving all 4 extremities Neck: No JVD Chest/pulmonary: CTA bilaterally Cardiovascular: S1-S2 regular no gallop or murmur GI/abdomen: Soft, nontender, bowel sounds present Extremities: Warm bilaterally, no edema. Dressing over left hip surgical site which is clean dry and intact. Caprini VTE Risk Assessment Caprini VTE Risk Assessment: Moderate/High Risk (score >= 2) Caprini Risk Assessment Model: Point Value = 1 Point Value = 2 Point Value = 3 Point Value = 5 Age 41-60 Minor surgery BMI > 25 kg/m2 Swollen legs Varicose veins or History of unexplained or recurrent spontaneous Oral contraceptives or hormone replacement Sepsis (< 1 month) Serious lung disease, including pneumonia (< 1 month) Abnormal pulmonary function Acute myocardial infarction Congestive heart failure (< 1 month) History of inflammatory bowel disease Medical patient at bed rest Age 61-74 Arthroscopic surgery Major open surgery (> 45 min) Laparoscopic surgery (> 45 min) Malignancy Confined to bed (> 72 hours) Immobilizing plaster cast Central venous access Age >= 75 History of VTE Family history of VTE Factor V Leiden Prothrombin [id number] Lupus anticoagulant Anticardiolipin antibodies Elevated serum homocysteine Heparin-induced thrombocytopenia Other congenital or acquired thrombophilia Stroke (< 1 month) Elective arthroplasty Hip, pelvis, or leg fracture Acute spinal cord injury (< 1 month) Prophylaxis Regimen: Total Risk Factor Score Risk Level Prophylaxis Regimen 0-1 Low Early ambulation 2 Moderate Order ONE of the following: *Sequential Compression Device (SCD) *Heparin 5000 units SQ BID 3-4 Higher Order ONE of the following medications: *Heparin 5000 units SQ TID *Enoxaparin/Lovenox 40 mg SQ daily (WT < 150 kg, CrCl > 30 mL/min) *Enoxaparin/Lovenox 30 mg SQ daily (WT < 150 kg, CrCl > 10-29 mL/min) *Enoxaparin/Lovenox 30 mg SQ BID (WT < 150 kg, CrCl > 30 mL/min) AND/OR *Sequential Compression Device (SCD) 5 or more Highest Order ONE of the following medications: *Heparin 5000 units SQ TID (Preferred with Epidurals) *Enoxaparin/Lovenox 40 mg SQ daily (WT < 150 kg, CrCl > 30 mL/min) *Enoxaparin/Lovenox 30 mg SQ daily (WT < 150 kg, CrCl > 10-29 mL/min) *Enoxaparin/Lovenox 30 mg SQ BID (WT < 150 kg, CrCl > 30 mL/min) AND *Sequential Compression Device (SCD) Assessment and Plan - Assessment and Plan Plan: 73-year-old male with: Large pulmonary embolism Hypertension Diabetes mellitus Recent left hip surgery Atrial fibrillation Plan: Admit to ICU Continue anticoagulation with heparin GTT. Resume Coumadin Consulted CT surgery due to large PE in case he develops hemodynamic instability and requires surgical embolectomy Hematology consulted for PE Continue antihypertensives, watch for hypotension Percocet as needed for pain 1800 ADA diet Continue home meds for diabetes Consulted cardiology Dr. Hughes covering for Dr. Castro in view of chest pain and large PE, 2D echo ordered. Discussed with Dr. Hughes. Discussed with IR Dr. Huddleston -as patient is hemodynamically stable currently no intervention planned Consult and transfer to hospitalist service tomorrow if he remains hemodynamically stable.
[2018-02-09] MEDS ORDERED: Dextrose 50% in Water 50 ML Vial IV.PUSH PRN (13:38)
--- NOTE | 2018-02-09 14:24 | MB ---
cc: Mamadou Harrell MD DATE: 02/09/2018 HISTORY OF PRESENT ILLNESS: A 73-year-old male who recently underwent right hip surgery 12/22/2017 presented back to the hospital on 02/02/2018 through 02/04/2018. He had presented with shortness of breath. He had an elevated creatinine. Therefore, they could not do a CTA. He had intermediate probability for pulmonary emboli. He was also diagnosed with a right lower extremity DVT at the time. He had an echo also which showed an ejection fraction of 55% to 60%. [employer], he is followed by Dr. Ramos. He had normal RV function. He has had prior history of atrial fibrillation. He was discharged on 02/04/2018 with Lovenox and Coumadin. He presented back to the hospital in [place] this morning with severe chest pain. He underwent pulmonary angiogram, which showed a large pulmonary emboli that is involving the right main pulmonary artery as well as a small emboli in the subsegmental branches on the left. His INR was noted to be 2.4. Therefore, he was started on heparin for anticoagulation and was transferred to the main facility to be evaluated by critical care. We were consulted for possible surgical embolectomy versus interventional radiology treatment with possible AngioJet. PAST MEDICAL HISTORY: Includes atrial fibrillation, diabetes mellitus, enlarged prostate, hard of hearing, hypertension, gastritis. PAST SURGICAL HISTORY: Include left hip replacement with an anterior approach 01/21/[address] Hampton. He has had removal of vocal cord polyps. ALLERGIES: NO KNOWN ALLERGIES. HOME MEDICATIONS: Include: 1. Lovenox, which he apparently did not like taking at home. 2. [place]. 3. Lisinopril. 4. Metformin. 5. Clonidine. 6. Byetta. 7. Metoprolol. 8. Crestor. 9. Coumadin 5. 10. Flomax 0.4. REVIEW OF SYSTEMS: As in initial H and P, otherwise unremarkable. PHYSICAL EXAMINATION: VITAL SIGNS: Blood pressure 160/80, heart rate of 88, afebrile, room air saturation 98%. GENERAL: Awake, alert, in no acute distress. HEENT: Head is normocephalic, atraumatic. Pupils equal and reactive. Oral mucosa pink, moist. NECK: Supple. No JVD. CARDIOVASCULAR: Heart sounds S1, S2. Regular rate and rhythm. No audible rubs, murmurs, or gallops. LUNGS: Clear to auscultation. No wheezes, rales, or rhonchi. ABDOMEN: Soft, nontender. No masses or organomegaly. EXTREMITIES: Plus 1 edema of the left lower extremity. He does have an incision in the left hip, which is clean, dry, and intact. He has good distal pulses. LABORATORY DATA: Hemoglobin of 11, hematocrit of 33. White cell count of 9.4, platelet count of 284. INR 2.4. Sodium 138, potassium 3.3, BUN of 13, creatinine 1.0, AST 23, ALT 36. BNP 852. Urinalysis is unremarkable. Chest CTA again this morning showed a large saddle embolism within the distal portion of the right main pulmonary artery extending into the right upper and lower lobes, a smaller segmental emboli noted in the left upper and lower lobe pulmonary arteries. PLAN: At this time, the patient is stable. He is pain free. He is on room air. Would continue to monitor closely. He is on a heparin drip at this time. Recommend consulting IR to evaluate need for any interventional procedure. Continue his heparin and resume his Coumadin. We will follow peripherally. Dictated by Jennifer Jay APRN Patient examined and chart reviewed on 02/09/2018. Agree with above. Given his normal hemodynamics, no supplemental oxygen requirement and stable clinical status with no evidence of right-sided heart failure, would not offer surgical therapy at this time. I think he will benefit from an echocardiogram to evaluate his right ventricular function. If there is right ventricular strain, either an IR directed evacuation of the saddle embolus or surgical removal would be indicated. In the meantime, continue anticoagulation as already doing. Thank you for allowing me to participate in the care of this patient. MD ANDREA Ortiz/maryana , 01:51 PM , 02:01 PM ZOLTAN
[2018-02-09] MEDS ORDERED: Heparin 10,000 UNITS/10 ML Vial (for IV use) IV.PUSH PRN (14:41)
[2018-02-09] MEDS: Metoprolol Tartrate 50 MG Tablet PO SCH ×2 (14:45→20:07)
[2018-02-09] MEDS: KCL 20 mEq/D5W/NaCl 0.45% Inj 1,000 ML IV.CONT SCH (14:45)
--- NOTE | 2018-02-09 16:02 | ECHRPT ---
Indication: SOB CONCLUSIONS The left ventricular systolic function is normal with an estimated ejection fraction of 55%. Normal left ventricular size. Wall thickness is normal. No regional wall motion abnormalities are present. The right atrial size is [id number] dilated. There is trace tricuspid valve regurgitation. The estimated pulmonary arterial pressure is 38 mmHg. BP: / HR: Rhythm: Atrial fibrillation MEASUREMENTS (Male / Female) Normal Values Technical Quality:Fair 2D ECHO LV Diastolic Diameter PLAX 4.5 cm 4.2 - 5.9 / 3.9 - 5.3 cm LV Systolic Diameter PLAX 3.5 cm IVS Diastolic Thickness 1.5 cm 0.6 - 1.0 / 0.6 - 0.9 cm LVPW Diastolic Thickness 1.4 cm 0.6 - 1.0 / 0.6 - 0.9 cm LV Relative Wall Thickness 0.6 LVOT Diameter 2.3 cm LV Ejection Fraction MOD 4C 54.5 % LV Ejection Fraction 4C AL 55.9 % DOPPLER MV Area PHT 5.0 cm Mitral E Point Velocity 120.0 cm/s Mitral A Point Velocity 64.7 cm/s Mitral E to A Ratio 1.9 TR Peak Velocity 266.0 cm/s TR Peak Gradient 28.3 mmHg Right Atrial Pressure 10.0 mmHg Pulmonary Artery Systolic Pressu 38.3 mmHg Right Ventricular Systolic Press 38.3 mmHg FINDINGS LEFT VENTRICLE The left ventricular systolic function is normal with an estimated ejection fraction of 55%. Normal left ventricular size. Wall thickness is normal. No regional wall motion abnormalities are present. RIGHT ATRIUM The right atrial size is [id number] dilated. TRICUSPID VALVE Structurally normal tricuspid valve. There is trace tricuspid valve regurgitation. The estimated pulmonary arterial pressure is 38.3 mmHg. Juventino Horton MD, FACC (Electronically Signed) Final Date:09 February 2018 16:00
[2018-02-09] MEDS ORDERED: EXENATIDE SQ SCH (17:00)
[2018-02-09] MEDS: Insulin NovoLIN Regular Correctional Sugar Inj SQ SCH ×2 (18:00→20:17)
--- NOTE | 2018-02-09 18:17 | ECG ---
Date Performed: 02/09/2018 Time Performed: 06:47:22 PTAGE: 73 years EKG: ATRIAL FIBRILLATION WITH ABERRANT CONDUCTION OR VENTRICULAR PREMATURE COMPLEXES POOR R WAVE PROGRESSION ABNORMAL RHYTHM ECG PREVIOUS TRACING : 02/02/2018 09.34 Since the previous tracing, no significant change noted DOCTOR: Juventino Horton Interpretating Date/Time 02/09/2018 18:15:44
[2018-02-09] MEDS: Famotidine PF Inj 20 MG/2 ML Vial IV.PUSH SCH (20:08)
[2018-02-09] MEDS: Senna/Docusate Sodium 8.6/50 MG Tablet PO SCH (20:08)
[2018-02-09] MEDS: Famotidine 20 MG Tablet PO SCH (20:08)
--- NOTE | 2018-02-09 20:24 | P.CON ---
History of Present Illness Service: hematology Primary Care Provider: Ap Sexton MD History of Present Illness: Mr. Bethea is a 73 year old man with a history of atrial fibrillation and recent hip surgery who was admitted to the hosptial on 02/09/2018 with progressively worsening shortness of breath. He underwent right hip surgery on 12/22/2017. Hospitalized 02/02 to 02/04 with worsening shortness of breast. HEas found on VQ scan to have moderate probability of PE. 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 HE was discharged home with lovenox to warfarin therapy. He reports initial improvement of symptoms followed by return of chest pain and shortness of breath. CTA revealed large pulmonary embolism involving right main pulmonary artery and small emboli in subsegmental branches on the left. INR 2.4 on admission today. Review of Systems All other systems reviewed negative except as stated in [facility] - History History Provided By: Patient - Medical History Medical History: Medical History (Last Reviewed 02/09/18 @ 20:18 by Arely Mullins) Arthritis Atrial fibrillation Diabetes Enlarged prostate [place] (hard of hearing) Hypertension Reflux gastritis - Surgical History Surgical History: Surgical History (Last Reviewed 02/09/18 @ 20:18 by Arely Mullins) Status post total hip replacement, left - Social History I have reviewed the patient's Social History: Yes - Tobacco History Second Hand Smoke Exposure: No Tobacco Use In Past 30 Days: No Smoking Status: Former smoker Tobacco Type: Cigarettes - Alcohol History How Often Do You Have a Drink Containing Alcohol: Never - Substance Use History Substance History: No History of Abuse - Travel History Recent Travel in the [facility] Within the Last 8 Weeks: No Recent Travel Out of the Country Within the Last 8 Weeks: No - Immunization History Tetanus Immunization: <5 Years Medications and Allergies Active Medications: Active Medications Acetaminophen (Tylenol) 650 mg PO Q6H PRN PRN Reason: PAIN 1-5 ORFEVER >101F Al Hydroxide/Mg Hydroxide (Milk Of Juan Liq) 30 ml PO Q12H PRN PRN Reason: Mild Constipation Atorvastatin Calcium (Lipitor) 40 mg PO DAILY [facility] Bisacodyl (Dulcolax Supp) 10 mg RECTAL DAILY PRN PRN Reason: SEVERE CONSITIPATION Chlorhexidine Gluconate (Chlorhexidine 2% Cloth) 3 pack TOPICAL DAILY@0400 [facility] Stop: 02/15/18 03:59 Chlorhexidine Gluconate (Chlorhexidine 2% Cloth) 3 pack TOPICAL DAILY@0400 PRN PRN Reason: Extra cloth needed Stop: 02/15/18 03:59 Clonidine HCl (Catapres) 0.2 mg PO TID [facility] Last Admin: 02/09/18 17:57 Dose: 0.2 mg Dextrose (D50w Vial) 50 ml IV.PUSH UNSCH PRN PRN Reason: PER HYPOGLYCEMIA PROTOCOL Famotidine (Pepcid) 20 mg PO BID [facility] Last Admin: 02/09/18 20:08 Dose: 20 mg Famotidine (Pepcid Pf Inj) 20 mg IV.PUSH Q12HR [facility] Last Admin: 02/09/18 20:08 Dose: Not Given Glucagon (Glucagon Inj) 1 mg OTHER PRN PRN PRN Reason: for Hypoglycemia Protocol Heparin Sodium (Porcine) (Heparin Inj) 2,500 units IV.PUSH UNSCH PRN PRN Reason: aPTT 25-39 Hydralazine HCl (Apresoline Inj) 20 mg IV.PUSH Q4H PRN PRN Reason: SBP > 160 Heparin Sodium/Dextrose (Heparin/D5w 25,000 U/250 Ml) 25,000 unit in 250 mls @ 18 mls/hr IV.CONT TITRATE PRN; Protocol PRN Reason: Per Protocol Last Admin: 02/09/18 09:27 Dose: 1,800 units/hr, 18 mls/hr Potassium Chloride/Dextrose/Sod Cl (D5w/1/2ns + Kcl 20 Meq Inj) 1,000 mls @ 100 mls/hr IV.CONT .Q10H [facility] Last Admin: 02/09/18 14:45 Dose: 100 mls/hr Insulin Human Regular (Novolin R Correctional Sugar Inj) 0 units SQ ACHS [facility]; Protocol Last Admin: 02/09/18 18:00 Dose: Not Given Lactulose (Lactulose Liq) 30 ml PO DAILY PRN PRN Reason: SEVERE CONSITIPATION Metoprolol Tartrate (Lopressor) 50 mg PO BID [facility] Last Admin: 02/09/18 20:07 Dose: 50 mg Oxycodone/Acetaminophen (Percocet 5/325 Mg) 2 tab PO Q4H PRN PRN Reason: PAIN SCALE 6 TO 10 [place]: [place] ( Exenatide) 10 Mcg Subcutaneously Twice Daily Before Meals 1 each SQ BIDAC [facility] Senna/Docusate Sodium ([place]-Colace) 1 tab PO BID [facility] Last Admin: 02/09/18 20:08 Dose: 1 tab Sennosides (Senokot) 17.2 mg PO Q12H PRN PRN Reason: Moderate Constipation Sodium Chloride (Ns Flush) 2 ml IV.FLUSH BID [facility] Last Admin: 02/09/18 20:08 Dose: 2 ml Sodium Chloride (Ns Flush) 2 ml IV.FLUSH PRN PRN PRN Reason: FLUSH AFTER USING IV ACCESS Tamsulosin HCl (Flomax) 0.4 mg PO DAILY [facility] Allergies Allergy/AdvReac Type Severity Reaction Status Date / Time No Known Allergies Allergy Verified 02/02/18 02:15 Home Medications Medication Instructions Recorded Confirmed Type clonidine HCl 0.2 mg PO TID 01/17/18 02/09/18 History exenatide [[place]] 10 mcg SUBCUT BID 01/17/18 02/09/18 History hydrocodone-acetaminophen 1 tab PO Q4H PRN 01/17/18 02/09/18 History metformin 1,000 mg PO BID 01/17/18 02/09/18 History tamsulosin [Flomax] 0.4 mg PO DAILY 01/17/18 02/09/18 History rosuvastatin 20 mg PO DAILY 01/19/18 02/09/18 History Physical Exam Vital signs: Vital Signs 02/09/18 01:22 02/09/18 03:55 02/09/18 05:30 Temperature 97.3 F L Pulse Rate 75 86 72 Respiratory Rate 20 16 Blood Pressure 166/99 H 180/87 H Pulse Oximetry 97 98 96 02/09/18 07:00 02/09/18 07:15 02/09/18 10:00 Temperature Pulse Rate 88 88 92 H Respiratory Rate 18 18 Blood Pressure 167/89 H 174/98 H Pulse Oximetry 98 98 98 02/09/18 12:00 02/09/18 12:15 02/09/18 12:30 Temperature 98.6 F Pulse Rate 83 67 68 Respiratory Rate 16 18 Blood Pressure 184/95 H Pulse Oximetry 98 98 02/09/18 12:45 02/09/18 13:00 02/09/18 13:15 Temperature Pulse Rate 78 90 82 Respiratory Rate 25 H 28 H 21 Blood Pressure 190/113 H 204/106 H 175/98 H Pulse Oximetry 97 97 99 02/09/18 13:30 02/09/18 13:39 02/09/18 13:45 Temperature Pulse Rate 91 H 90 91 H Respiratory Rate 24 21 22 Blood Pressure 201/86 H 179/80 H 195/87 H Pulse Oximetry 99 98 98 02/09/18 13:47 02/09/18 14:00 02/09/18 14:01 Temperature Pulse Rate 93 H 92 H 97 H Respiratory Rate 21 19 20 Blood Pressure 179/92 H 194/92 H Pulse Oximetry 99 99 99 02/09/18 14:15 02/09/18 14:16 02/09/18 14:30 Temperature Pulse Rate 102 H 98 H 93 H Respiratory Rate 20 21 21 Blood Pressure 201/86 H 195/88 H 175/83 H Pulse Oximetry 99 98 97 02/09/18 14:45 02/09/18 14:46 02/09/18 15:00 Temperature Pulse Rate 92 H 88 94 H Respiratory Rate 19 20 19 Blood Pressure 193/81 H 178/77 H 190/97 H Pulse Oximetry 98 98 98 02/09/18 15:16 02/09/18 15:30 02/09/18 15:45 Temperature Pulse Rate 85 83 79 Respiratory Rate 22 25 H 21 Blood Pressure 189/88 H 168/66 H 165/97 H Pulse Oximetry 96 96 97 02/09/18 16:00 02/09/18 16:15 02/09/18 16:30 Temperature Pulse Rate 80 81 86 Respiratory Rate 20 20 21 Blood Pressure 170/83 H 184/94 H 183/98 H Pulse Oximetry 97 97 99 02/09/18 16:45 02/09/18 17:00 02/09/18 17:15 Temperature Pulse Rate 82 85 79 Respiratory Rate 21 25 H 24 Blood Pressure 170/88 H 177/87 H 189/86 H Pulse Oximetry 97 98 97 02/09/18 17:30 02/09/18 17:45 02/09/18 17:51 Temperature Pulse Rate 88 85 83 Respiratory Rate 26 H 24 23 Blood Pressure 180/103 H 199/93 H 187/86 H Pulse Oximetry 98 98 98 02/09/18 18:00 02/09/18 18:08 02/09/18 19:00 Temperature Pulse Rate 84 89 84 Respiratory Rate 24 27 H 22 Blood Pressure 194/91 H 181/79 H 148/69 H Pulse Oximetry 97 98 97 Intake & Output 02/09/18 02/09/18 02/10/18 06:59 18:59 06:59 Intake Total 350 / 350 Output Total 3250 / 3250 Balance -2900 / -2900 Weight 109.2 kg 105.5 kg Intake: Oral 350 / 350 Output: Urine Amount (Catheter) 3250 / 3250 Indwelling Urethral Catheter 3250 / 3250 Other: Weight On Admission 105.5 kg - Constitutional no acute distress - Routine HEENT Exam Head: Present: normocephalic, atraumatic Eye: Present: EOMI, PERRL - Routine Neck Exam Present: supple - Routine Respiratory Exam Present: CTA bilaterally - Routine Cardiovascular Exam Present: RRR, S1, S2 - Routine Abdominal Exam Present: soft, normoactive bowel sounds - Routine Extremities Exam Comments: no edema - Routine Neurological Exam Present: alert, oriented X3 - Routine Psychiatric Exam Present: normal affect - Urinary Catheter Management Indwelling Urethral Catheter Cath placed during this visit: no Results - Labs CBC & Chem 7: 02/09/18 05:30 02/09/18 05:30 Labs: Laboratory Results - last 24 hr 02/09/18 02/09/18 02/09/18 05:20 05:30 05:30 CBC w Diff Auto diff final WBC 9.4 RBC 3.66 L Hgb 11.0 L Hct 33.5 L MCV 91.7 MCH 30.0 MCHC 32.7 RDW 13.5 Plt Count 284 D MPV 8.5 Neut % (Auto) 79.4 H Lymph % (Auto) 13.8 [place] % (Auto) 4.8 Eos % (Auto) 1.7 Baso % (Auto) 0.3 Neut # (Auto) 7.4 Lymph # (Auto) 1.3 [place] # (Auto) 0.5 Eos # (Auto) 0.2 Baso # (Auto) 0.0 WBC Differential . Differential Comment . PT 24.6 H D INR 2.4 APTT 31.0 Sodium Potassium Chloride Carbon Dioxide Anion Gap BUN Creatinine Estimated GFR POC Glucose Random Glucose Calcium Magnesium Total Bilirubin AST ALT Alkaline Phosphatase Troponin I B-Natriuretic Peptide Total Protein Albumin Urine Color Yellow Urine Clarity Clear Urine pH 6.0 Ur Specific [place] 1.010 Urine Protein Trace Urine Glucose (UA) Negative Urine Ketones Negative Urine Occult Blood Trace Urine Nitrate Negative Urine Bilirubin Negative Urine Urobilinogen 0.2 Ur Leukocyte Esterase Negative Urine RBC 4-15 H Urine WBC 0-5 Ur Squamous Epith Cells 0-5 Urine Yeast Few H Micro UA Comment Culture not ind Ur Microscopic Review Microscopic reviewed Urine Culture Comments Culture not ind Nasal Screen MRSA (PCR) 02/09/18 02/09/18 02/09/18 05:30 05:30 13:00 CBC w Diff WBC RBC Hgb Hct MCV MCH MCHC RDW Plt Count MPV Neut % (Auto) Lymph % (Auto) [place] % (Auto) Eos % (Auto) Baso % (Auto) Neut # (Auto) Lymph # (Auto) [place] # (Auto) Eos # (Auto) Baso # (Auto) WBC Differential Differential Comment PT INR APTT Sodium 138 Potassium 3.3 L Chloride 104 Carbon Dioxide 24.6 Anion Gap 9 BUN 13 Creatinine 1.00 Estimated GFR 73 L POC Glucose Random Glucose 134 H Calcium 8.5 Magnesium 1.4 L Total Bilirubin 0.7 AST 23 ALT 36 Alkaline Phosphatase 72 Troponin I 0.03 B-Natriuretic Peptide 852 H Total Protein 7.3 Albumin 3.5 Urine Color Urine Clarity Urine pH Ur Specific [place] Urine Protein Urine Glucose (UA) Urine Ketones Urine Occult Blood Urine Nitrate Urine Bilirubin Urine Urobilinogen Ur Leukocyte Esterase Urine RBC Urine WBC Ur Squamous Epith Cells Urine Yeast Micro UA Comment Ur Microscopic Review Urine Culture Comments Nasal Screen MRSA (PCR) Not detected 02/09/18 02/09/18 16:23 20:12 CBC w Diff WBC RBC Hgb Hct MCV MCH MCHC RDW Plt Count MPV Neut % (Auto) Lymph % (Auto) [place] % (Auto) Eos % (Auto) Baso % (Auto) Neut # (Auto) Lymph # (Auto) [place] # (Auto) Eos # (Auto) Baso # (Auto) WBC Differential Differential Comment PT INR APTT 64.1 H D Sodium Potassium Chloride Carbon Dioxide Anion Gap BUN Creatinine Estimated GFR POC Glucose 281 H Random Glucose Calcium Magnesium Total Bilirubin AST ALT Alkaline Phosphatase Troponin I B-Natriuretic Peptide Total Protein Albumin Urine Color Urine Clarity Urine pH Ur Specific [place] Urine Protein Urine Glucose (UA) Urine Ketones Urine Occult Blood Urine Nitrate Urine Bilirubin Urine Urobilinogen Ur Leukocyte Esterase Urine RBC Urine WBC Ur Squamous Epith Cells Urine Yeast Micro UA Comment Ur Microscopic Review Urine Culture Comments Nasal Screen MRSA (PCR) - Imaging Impressions Chest X-Ray 02/09/18 05:08 CONCLUSION: 1. Stable cardiomegaly. 2. No acute abnormality or significant interval change. Chest CTA 02/09/18 06:25 CONCLUSION: 1. Large saddle embolism within the distal portion of the right main pulmonary artery extending into the right upper and lower lobes. Smaller segmental emboli are noted within the left upper and lower lobe pulmonary arteries. 2. Marked cardiomegaly and coronary artery calcifications. 3. Hepatosplenomegaly. 4. Degenerative changes throughout the thoracic spine. Assessment and Plan - Plan 1. VTE, recurrent despite therapeutic warfarin therapy. He was previously discharge home on Lovenox injections with transition to warfarin. He reports that he has been on warfarin for many years for atrial fibrillation. Long discussion with patient. He has had a recurrent VTE despite therapeutic on warfarin therapy. From discussion with patient it seemed that symptoms initially improved after recent hospitalization and then worsened. Would continue with heparin anticoagulation while inpatient. Discussed injectable therapy with lovenox with patient. patient adamantly declines this therapy. He reports that he had a difficult time with administration of lovenox. Would continue with heparin therapy while inpatient. At discharge would start apixaban 5 mg PO BID. Given large clot burden patient is under close monitoring in ICU. Interventional radiology and CT surgery teams are aware. Inpatient hematology service will cnotniue to follow.
[2018-02-09] MEDS: hydrALAZINE HCl Inj 20 MG/ML Vial IV.PUSH PRN (23:12)
[2018-02-10] MEDS: KCL 20 mEq/D5W/NaCl 0.45% Inj 1,000 ML IV.CONT SCH ×3 (00:43→21:49)
[2018-02-10] MEDS ORDERED: amLODIPine 10 MG Tablet PO ONE (02:39)
[2018-02-10] MEDS ORDERED: Chlorhexidine Gluconate 2% 1 Pack (2 Cloths) TOPICAL PRN (04:00)
[2018-02-10] MEDS: Chlorhexidine Gluconate 2% 1 Pack (2 Cloths) TOPICAL SCH (04:24)
[2018-02-10] MEDS: hydrALAZINE HCl Inj 20 MG/ML Vial IV.PUSH PRN (04:24)
[2018-02-10 06:18] LABS: Hemoglobin 11.1 gm/dL (13.0-17.0); Mean Corpuscular HGB Conc 34.8 % (32.0-36.0); Mean Corpuscular Hemoglobin 31.3 pg (27.0-34.0); Mean Corpuscular Volume 89.9 fL (80.0-100.0); Platelet Count 252 th/mm3 (150-450); Red Blood Count 3.56 mil/mm3 (4.50-5.90); Red Cell Distribution Width 14.1 % (11.6-17.2)
--- NOTE | 2018-02-10 08:37 | P.CONCA ---
History of Present Illness Service: cardiology Consult date: 02/10/18 Requesting Physician: Tiffany Velázquez Reason for Consult: Pulmonary Embolus, chest pain Primary Care Provider: Ap Sexton MD Chief Complaint: chest pain, known PE History of Present Illness: 73-year-old gentleman with atrial fibrillation on warfarin, HTN, DM who initially was hospitalized at [facility] from 02/02-02/04 with difficulty breathing due to clinically suspected sub-massive PE with intermediate VQ scan, Lower extremity DVT. CTA pulmonary arteries was not completed at that time due to NICOLE. Patient was on warfarin for chronic atrial fibrillation but it was held due to recent hip surgery and patient self discontinued due to recent cystitis and antibiotic use. INR was 1.1 on most recent outpatient office check and INR remained subtherapeutic at 1.9 at prior admission. Patient was hypotensive at arrival and Coumadin was initially reversed with vitamin K and maintained on a heparin gtt in case he were to decompensate and require TPA or embolectomy, but vitals normalized and hypertension resumed and home anti-hypertensive medications were resumed. He was discharged on coumadin and lovenox bridge. He did NOT have Coumadin treatment failure with recurrent PE as incorrectly noted by Dr Arely Mullins's consultation note this admission. Patient had a few short runs of NSVT and echocardiogram was essentially normal with mildly elevated PAP 38mmHg and metoprolol tartrate was uptitrated with good result. Apparently, patient had chest and back pain begin shortly after discharge on and returned to the [facility] ER yesterday. Vitals were stable and CTA PE protocol which revealed a large PE with saddle embolus in the RUL and RLL and subsegmental PE in the ALEC and LLL. He was started on a heparin gtt and transferred to the [facility] main campus for closer monitoring in case he were to decompensate and require embolectomy. CT surgery and IR have both been consulted thus far and recommend close monitoring at this time. Currently, patient is comfortable and has only mild dyspnea. No chest pain. Review of Systems All other systems reviewed negative except as stated in HPI [facility] - History History Provided By: Patient - Medical History Medical History: Medical History (Last Reviewed 02/09/18 @ 20:18 by Arely Mullins) Arthritis Atrial fibrillation Diabetes Enlarged prostate [place] (hard of hearing) Hypertension Reflux gastritis - Surgical History Surgical History: Surgical History (Last Reviewed 02/09/18 @ 20:18 by Arely Mullins) Status post total hip replacement, left - Tobacco History Second Hand Smoke Exposure: No Tobacco Use In Past 30 Days: No Smoking Status: Former smoker Tobacco Type: Cigarettes - Alcohol History How Often Do You Have a Drink Containing Alcohol: Never - Substance Use History Substance History: No History of Abuse - Travel History Recent Travel in the [place] Within the Last 8 Weeks: No Recent Travel Out of the Country Within the Last 8 Weeks: No - Immunization History Tetanus Immunization: <5 Years Medications and Allergies Active Medications: Active Medications Acetaminophen (Tylenol) 650 mg PO Q6H PRN PRN Reason: PAIN 1-5 ORFEVER >101F Al Hydroxide/Mg Hydroxide (Milk Of Magnderrek Liq) 30 ml PO Q12H PRN PRN Reason: Mild Constipation Atorvastatin Calcium (Lipitor) 40 mg PO DAILY [facility] Bisacodyl (Dulcolax Supp) 10 mg RECTAL DAILY PRN PRN Reason: SEVERE CONSITIPATION Chlorhexidine Gluconate (Chlorhexidine 2% Cloth) 3 pack TOPICAL DAILY@0400 [facility] Stop: 02/15/18 03:59 Last Admin: 02/10/18 04:24 Dose: 3 pack Chlorhexidine Gluconate (Chlorhexidine 2% Cloth) 3 pack TOPICAL DAILY@0400 PRN PRN Reason: Extra cloth needed Stop: 02/15/18 03:59 Clonidine HCl (Catapres) 0.2 mg PO TID [facility] Last Admin: 02/09/18 17:57 Dose: 0.2 mg Dextrose (D50w Vial) 50 ml IV.PUSH UNSCH PRN PRN Reason: PER HYPOGLYCEMIA PROTOCOL Famotidine (Pepcid) 20 mg PO BID [facility] Last Admin: 02/09/18 20:08 Dose: 20 mg Famotidine (Pepcid Pf Inj) 20 mg IV.PUSH Q12HR [facility] Last Admin: 02/09/18 20:08 Dose: Not Given Glucagon (Glucagon Inj) 1 mg OTHER PRN PRN PRN Reason: for Hypoglycemia Protocol Heparin Sodium (Porcine) (Heparin Inj) 2,500 units IV.PUSH UNSCH PRN PRN Reason: aPTT 25-39 Hydralazine HCl (Apresoline Inj) 20 mg IV.PUSH Q4H PRN PRN Reason: SBP > 160 Last Admin: 02/10/18 04:24 Dose: 20 mg Heparin Sodium/Dextrose (Heparin/D5w 25,000 U/250 Ml) 25,000 unit in 250 mls @ 18 mls/hr IV.CONT TITRATE PRN; Protocol PRN Reason: Per Protocol Last Admin: 02/09/18 22:31 Dose: 1,800 units/hr, 18 mls/hr Potassium Chloride/Dextrose/Sod Cl (D5w/1/2ns + Kcl 20 Meq Inj) 1,000 mls @ 100 mls/hr IV.CONT .Q10H [facility] Last Admin: 02/10/18 00:43 Dose: 100 mls/hr Insulin Human Regular (Novolin R Correctional Sugar Inj) 0 units SQ ACHS [facility]; Protocol Last Admin: 02/09/18 20:17 Dose: 7 units Lactulose (Lactulose Liq) 30 ml PO DAILY PRN PRN Reason: SEVERE CONSITIPATION Lisinopril (Prinivil) 20 mg PO BID [facility] Metoprolol Tartrate (Lopressor) 50 mg PO BID [facility] Last Admin: 02/09/18 20:07 Dose: 50 mg Oxycodone/Acetaminophen (Percocet 5/325 Mg) 2 tab PO Q4H PRN PRN Reason: PAIN SCALE 6 TO 10 [place]: [place] ( Exenatide) 10 Mcg Subcutaneously Twice Daily Before Meals 1 each SQ BIDAC [facility] Senna/Docusate Sodium ([place]-Colace) 1 tab PO BID [facility] Last Admin: 02/09/18 20:08 Dose: 1 tab Sennosides (Senokot) 17.2 mg PO Q12H PRN PRN Reason: Moderate Constipation Sodium Chloride (Ns Flush) 2 ml IV.FLUSH BID [facility] Last Admin: 02/09/18 20:08 Dose: 2 ml Sodium Chloride (Ns Flush) 2 ml IV.FLUSH PRN PRN PRN Reason: FLUSH AFTER USING IV ACCESS Tamsulosin HCl (Flomax) 0.4 mg PO DAILY [facility] Allergies Allergy/AdvReac Type Severity Reaction Status Date / Time No Known Allergies Allergy Verified 02/02/18 02:15 Home Medications Medication Instructions Recorded Confirmed Type clonidine HCl 0.2 mg PO TID 01/17/18 02/09/18 History exenatide [Byetta] 10 mcg SUBCUT BID 01/17/18 02/09/18 History hydrocodone-acetaminophen 1 tab PO Q4H PRN 01/17/18 02/09/18 History metformin 1,000 mg PO BID 01/17/18 02/09/18 History tamsulosin [Flomax] 0.4 mg PO DAILY 01/17/18 02/09/18 History rosuvastatin 20 mg PO DAILY 01/19/18 02/09/18 History Exam Vital signs: Vital Signs 02/09/18 10:00 02/09/18 12:00 02/09/18 12:15 Temperature 98.6 F Pulse Rate 92 H 83 67 Respiratory Rate 18 16 Blood Pressure 174/98 H Pulse Oximetry 98 98 02/09/18 12:30 02/09/18 12:45 02/09/18 13:00 Temperature Pulse Rate 68 78 90 Respiratory Rate 18 25 H 28 H Blood Pressure 184/95 H 190/113 H 204/106 H Pulse Oximetry 98 97 97 02/09/18 13:15 02/09/18 13:30 02/09/18 13:39 Temperature Pulse Rate 82 91 H 90 Respiratory Rate 21 24 21 Blood Pressure 175/98 H 201/86 H 179/80 H Pulse Oximetry 99 99 98 02/09/18 13:45 02/09/18 13:47 02/09/18 14:00 Temperature Pulse Rate 91 H 93 H 92 H Respiratory Rate 22 21 19 Blood Pressure 195/87 H 179/92 H Pulse Oximetry 98 99 99 02/09/18 14:01 02/09/18 14:15 02/09/18 14:16 Temperature Pulse Rate 97 H 102 H 98 H Respiratory Rate 20 20 21 Blood Pressure 194/92 H 201/86 H 195/88 H Pulse Oximetry 99 99 98 02/09/18 14:30 02/09/18 14:45 02/09/18 14:46 Temperature Pulse Rate 93 H 92 H 88 Respiratory Rate 21 19 20 Blood Pressure 175/83 H 193/81 H 178/77 H Pulse Oximetry 97 98 98 02/09/18 15:00 02/09/18 15:16 02/09/18 15:30 Temperature Pulse Rate 94 H 85 83 Respiratory Rate 19 22 25 H Blood Pressure 190/97 H 189/88 H 168/66 H Pulse Oximetry 98 96 96 02/09/18 15:45 02/09/18 16:00 12/26/18 16:15 Temperature Pulse Rate 79 80 81 Respiratory Rate 21 20 20 Blood Pressure 165/97 H 170/83 H 184/94 H Pulse Oximetry 97 97 97 02/09/18 16:30 02/09/18 16:45 02/09/18 17:00 Temperature Pulse Rate 86 82 85 Respiratory Rate 21 21 25 H Blood Pressure 183/98 H 170/88 H 177/87 H Pulse Oximetry 99 97 98 02/09/18 17:15 02/09/18 17:30 02/09/18 17:45 Temperature Pulse Rate 79 88 85 Respiratory Rate 24 26 H 24 Blood Pressure 189/86 H 180/103 H 199/93 H Pulse Oximetry 97 98 98 02/09/18 17:51 02/09/18 18:00 02/09/18 18:08 Temperature Pulse Rate 83 84 89 Respiratory Rate 23 24 27 H Blood Pressure 187/86 H 194/91 H 181/79 H Pulse Oximetry 98 97 98 02/09/18 19:00 02/09/18 20:00 02/09/18 21:00 Temperature Pulse Rate 84 87 78 Respiratory Rate 22 21 30 H Blood Pressure 148/69 H 170/77 H 162/90 H Pulse Oximetry 97 95 97 02/09/18 21:13 02/09/18 22:00 02/09/18 23:00 Temperature Pulse Rate 64 64 Respiratory Rate 24 25 H Blood Pressure 161/68 H 172/77 H Pulse Oximetry 97 98 98 02/10/18 00:00 02/10/18 01:00 02/10/18 02:00 Temperature Pulse Rate 68 83 81 Respiratory Rate 21 22 28 H Blood Pressure 147/84 H 158/85 H 161/108 H Pulse Oximetry 97 97 98 02/10/18 03:00 02/10/18 04:00 02/10/18 05:00 Temperature Pulse Rate 88 87 89 Respiratory Rate 29 H 19 21 Blood Pressure 179/85 H 188/135 H 161/70 H Pulse Oximetry 97 98 96 02/10/18 06:00 Temperature Pulse Rate 91 H Respiratory Rate 18 Blood Pressure 170/80 H Pulse Oximetry 98 Intake & Output 02/09/18 02/10/18 02/10/18 18:59 06:59 18:59 Intake Total 350 / 350 1730 / 1730 Output Total 3250 / 3250 2250 / 2250 Balance -2900 / -2900 -520 / -520 Weight 105.5 kg 103.5 kg Intake: IV 1250 / 1250 Heparin/D5W 25,000 U/250 mL 25, 250 / 250 000 unit In 250 ml @ 1,800 UNITS/HR 18 mls/hr IV.CONT TITRATE PRN Rx#:[id number] D5W/1/2NS + KCL 20 mEq Inj 1, 1000 / 1000 000 ML @ 100 mls/hr IV.CONT . Q10H [facility] Rx#:[id number] Oral 350 / 350 480 / 480 Output: Urine Amount (Catheter) 3250 / 3250 2250 / 2250 Indwelling Urethral Catheter 3250 / 3250 2250 / 2250 Other: Weight On Admission 105.5 kg Narrative: GENERAL: Well-developed well-nourished. Appears comfortable on supplemental O2 via NC and in no acute distress. NECK: No carotid bruits. No JVD. CARDIOVASCULAR: Irregular rate and rhythm. No murmur appreciated. RESPIRATORY: No accessory muscle use. Clear to auscultation. Breath sounds equal bilaterally. MUSCULOSKELETAL: Right lower extremity with trace nonpitting edema and venous stasis skin changes. Left lower extremity with 2+ pitting edema. NEUROLOGICAL: Awake and alert. Normal speech. Results 02/10/18 05:44 02/09/18 05:30 Cardiac Enzymes 02/09/18 02/09/18 Range/Units 05:30 05:30 AST 23 (15-37) U/L Troponin I 0.03 (0.02-0.05) ng/mL B-Natriuretic Peptide 852 H (0-100) pg/mL Coagulation 02/09/18 02/09/18 02/09/18 Range/Units 05:30 05:30 16:23 PT 24.6 H D (9.8-11.6) sec APTT 31.0 64.1 H D (23.4-31.7) sec B-Natriuretic Peptide 852 H (0-100) pg/mL 02/09/18 02/10/18 Range/Units 23:13 05:44 PT (9.8-11.6) sec APTT 70.9 H 81.6 H (23.4-31.7) sec B-Natriuretic Peptide (0-100) pg/mL CBC 02/09/18 02/10/18 Range/Units 05:30 05:44 WBC 9.4 10.0 (4.0-11.0) th/mm3 RBC 3.66 L 3.56 L (4.50-5.90) mil/mm3 Hgb 11.0 L 11.1 L (13.0-17.0) gm/dL Hct 33.5 L 32.0 L (39.0-51.0) % Plt Count 284 D 252 (150-450) th/mm3 Neut # (Auto) 7.4 (1.8-7.7) th/mm3 Lymph # (Auto) 1.3 (1.0-4.8) th/mm3 [place] # (Auto) 0.5 (0.0-0.9) th/mm3 Eos # (Auto) 0.2 (0.0-0.4) th/mm3 Baso # (Auto) 0.0 (0.0-0.2) th/mm3 Comprehensive Metabolic Panel 02/09/18 Range/Units 05:30 Sodium 138 (136-145) meq/L Potassium 3.3 L (3.5-5.1) meq/L Chloride 104 (98-107) meq/L Carbon Dioxide 24.6 (21.0-32.0) meq/L BUN 13 (7-18) mg/dL Creatinine 1.00 (0.60-1.30) mg/dL Calcium 8.5 (8.5-10.1) mg/dL AST 23 (15-37) U/L ALT 36 (12-78) U/L Alkaline Phosphatase 72 (45-117) U/L Total Protein 7.3 (6.4-8.2) g/dL Albumin 3.5 (3.4-5.0) g/dL Intake and Output 02/09/18 02/10/18 02/10/18 22:59 06:59 14:59 Intake Total 600 / 600 1480 / 1480 Output Total 3250 / 3250 2250 / 2250 Balance -2650 / -2650 -770 / -770 Intake: IV 250 / 250 1000 / 1000 Heparin/D5W 25,000 U/250 mL 25, 250 / 250 000 unit In 250 ml @ 1,800 UNITS/HR 18 mls/hr IV.CONT TITRATE PRN Rx#:[id number] D5W/1/2NS + KCL 20 mEq Inj 1, 1000 / 1000 000 ML @ 100 mls/hr IV.CONT . Q10H [facility] Rx#:[id number] Oral 350 / 350 480 / 480 Output: Urine Amount (Catheter) 3250 / 3250 2250 / 2250 Indwelling Urethral Catheter 3250 / 3250 2250 / 2250 Other: Weight 103.5 kg - Imaging and Cardiology Imaging: Impressions Chest X-Ray 02/09/18 05:08 CONCLUSION: 1. Stable cardiomegaly. 2. No acute abnormality or significant interval change. Chest CTA 02/09/18 06:25 CONCLUSION: 1. Large saddle embolism within the distal portion of the right main pulmonary artery extending into the right upper and lower lobes. Smaller segmental emboli are noted within the left upper and lower lobe pulmonary arteries. 2. Marked cardiomegaly and coronary artery calcifications. 3. Hepatosplenomegaly. 4. Degenerative changes throughout the thoracic spine. Assessment and Plan - Plan Assessment: Large PE with saddle embolus in RUL/RLL and segmental PE in ALEC/LLL Chest and back pain suspect due to PE with probable small pulmonary infarction No stigmata for ACS or coronary emboli at this juncture HTN Permanent Atrial fibrillation Recent NSVT Recommendations: -pain management -resume home HTN medications including lisinopril 20mg bid -would d/c heparin gtt and resume coumadin, goal INR 2-3 but defer choice of anticoagulation therapy to pacu nurse. Again, patient was admitted with PE after stopping coumadin with outpatient INR 1.1. Not coumadin treatment failure. -repeat echo shows no evidence of major RA/RV strain nor does ECG and PAP only 38mmHg. No need for further imaging. Will sign off.
[2018-02-10] MEDS: Insulin NovoLIN Regular Correctional Sugar Inj SQ SCH ×4 (09:00→21:15)
[2018-02-10] MEDS: Lisinopril 20 MG Tablet PO SCH ×2 (09:38→21:16)
[2018-02-10] MEDS: Famotidine 20 MG Tablet PO SCH ×2 (09:38→21:15)
[2018-02-10] MEDS: Metoprolol Tartrate 50 MG Tablet PO SCH ×2 (09:38→21:15)
[2018-02-10] MEDS: Senna/Docusate Sodium 8.6/50 MG Tablet PO SCH ×2 (09:39→21:15)
[2018-02-10] MEDS: Famotidine PF Inj 20 MG/2 ML Vial IV.PUSH SCH (09:40)
--- NOTE | 2018-02-10 11:22 | P.PNONC ---
Subjective Interval history: Patient lying in bed, no acute distress. His nurses at the bedside. Patient denies any shortness of breath, on O2 as needed during the night. Patient states it is his security blanket. He denies any chest pain. Denies any bleeding. Continues on heparin drip. Objective Vital Signs/Intake & Output: Vital Signs 02/09/18 12:00 02/09/18 12:15 02/09/18 12:30 Temperature 98.6 F Pulse Rate 83 67 68 Respiratory Rate 16 18 Blood Pressure 184/95 H Pulse Oximetry 98 98 02/09/18 12:45 02/09/18 13:00 02/09/18 13:15 Temperature Pulse Rate 78 90 82 Respiratory Rate 25 H 28 H 21 Blood Pressure 190/113 H 204/106 H 175/98 H Pulse Oximetry 97 97 99 02/09/18 13:30 02/09/18 13:39 02/09/18 13:45 Temperature Pulse Rate 91 H 90 91 H Respiratory Rate 24 21 22 Blood Pressure 201/86 H 179/80 H 195/87 H Pulse Oximetry 99 98 98 02/09/18 13:47 02/09/18 14:00 02/09/18 14:01 Temperature Pulse Rate 93 H 92 H 97 H Respiratory Rate 21 19 20 Blood Pressure 179/92 H 194/92 H Pulse Oximetry 99 99 99 02/09/18 14:15 02/09/18 14:16 02/09/18 14:30 Temperature Pulse Rate 102 H 98 H 93 H Respiratory Rate 20 21 21 Blood Pressure 201/86 H 195/88 H 175/83 H Pulse Oximetry 99 98 97 02/09/18 14:45 02/09/18 14:46 02/09/18 15:00 Temperature Pulse Rate 92 H 88 94 H Respiratory Rate 19 20 19 Blood Pressure 193/81 H 178/77 H 190/97 H Pulse Oximetry 98 98 98 02/09/18 15:16 02/09/18 15:30 02/09/18 15:45 Temperature Pulse Rate 85 83 79 Respiratory Rate 22 25 H 21 Blood Pressure 189/88 H 168/66 H 165/97 H Pulse Oximetry 96 96 97 02/09/18 16:00 02/09/18 16:15 02/09/18 16:30 Temperature Pulse Rate 80 81 86 Respiratory Rate 20 20 21 Blood Pressure 170/83 H 184/94 H 183/98 H Pulse Oximetry 97 97 99 02/09/18 16:45 02/09/18 17:00 02/09/18 17:15 Temperature Pulse Rate 82 85 79 Respiratory Rate 21 25 H 24 Blood Pressure 170/88 H 177/87 H 189/86 H Pulse Oximetry 97 98 97 02/09/18 17:30 02/09/18 17:45 02/09/18 17:51 Temperature Pulse Rate 88 85 83 Respiratory Rate 26 H 24 23 Blood Pressure 180/103 H 199/93 H 187/86 H Pulse Oximetry 98 98 98 02/09/18 18:00 02/09/18 18:08 02/09/18 19:00 Temperature Pulse Rate 84 89 84 Respiratory Rate 24 27 H 22 Blood Pressure 194/91 H 181/79 H 148/69 H Pulse Oximetry 97 98 97 02/09/18 20:00 02/09/18 21:00 02/09/18 21:13 Temperature Pulse Rate 87 78 Respiratory Rate 21 30 H Blood Pressure 170/77 H 162/90 H Pulse Oximetry 95 97 97 02/09/18 22:00 02/09/18 23:00 02/10/18 00:00 Temperature Pulse Rate 64 64 68 Respiratory Rate 24 25 H 21 Blood Pressure 161/68 H 172/77 H 147/84 H Pulse Oximetry 98 98 97 02/10/18 01:00 02/10/18 02:00 02/10/18 03:00 Temperature Pulse Rate 83 81 88 Respiratory Rate 22 28 H 29 H Blood Pressure 158/85 H 161/108 H 179/85 H Pulse Oximetry 97 98 97 02/10/18 04:00 02/10/18 05:00 02/10/18 06:00 Temperature Pulse Rate 87 89 91 H Respiratory Rate 19 21 18 Blood Pressure 188/135 H 161/70 H 170/80 H Pulse Oximetry 98 96 98 02/10/18 08:36 Temperature Pulse Rate Respiratory Rate Blood Pressure Pulse Oximetry 96 Intake & Output 02/09/18 02/10/18 02/10/18 18:59 06:59 18:59 Intake Total 350 / 350 1730 / 1730 1000 / 1000 Output Total 3250 / 3250 2250 / 2250 Balance -2900 / -2900 -520 / -520 1000 / 1000 Weight 105.5 kg 103.5 kg Intake: IV 1250 / 1250 1000 / 1000 Heparin/D5W 25,000 U/250 mL 25, 250 / 250 000 unit In 250 ml @ 1,800 UNITS/HR 18 mls/hr IV.CONT TITRATE PRN Rx#:[id number] D5W/1/2NS + KCL 20 mEq Inj 1, 1000 / 1000 1000 / 1000 000 ML @ 100 mls/hr IV.CONT . Q10H [facility] Rx#:[id number] Oral 350 / 350 480 / 480 Output: Urine Amount (Catheter) 3250 / 3250 2250 / 2250 Indwelling Urethral Catheter 3250 / 3250 2250 / 2250 Other: Weight On Admission 105.5 kg Result Diagrams: 02/10/18 05:44 02/10/18 17:30 Laboratory Results: Laboratory Results - last 24 hr 02/09/18 02/09/18 02/09/18 13:00 16:23 20:12 WBC RBC Hgb Hct MCV MCH MCHC RDW Plt Count MPV APTT 64.1 H D POC Glucose 281 H Nasal Screen MRSA (PCR) Not detected 02/09/18 02/10/18 02/10/18 23:13 05:44 05:44 WBC 10.0 RBC 3.56 L Hgb 11.1 L Hct 32.0 L MCV 89.9 MCH 31.3 MCHC 34.8 RDW 14.1 Plt Count 252 MPV 9.0 APTT 70.9 H 81.6 H POC Glucose Nasal Screen MRSA (PCR) 02/10/18 07:51 WBC RBC Hgb Hct MCV MCH MCHC RDW Plt Count MPV APTT POC Glucose 172 H Nasal Screen MRSA (PCR) Medications: Active Medications Generic Name Dose Route Start Last Admin Trade Name Freq PRN Reason Stop Dose Admin Atorvastatin Calcium 40 mg 02/10/18 09:00 02/10/18 09:39 Lipitor PO 40 mg DAILY [facility] Administration Chlorhexidine Gluconate 3 pack 02/10/18 04:00 02/10/18 04:24 Chlorhexidine 2% Cloth TOPICAL 02/15/18 03:59 3 pack DAILY@0400 [facility] Administration Clonidine HCl 0.2 mg 02/09/18 18:00 02/10/18 09:39 Catapres PO 0.2 mg TID [facility] Administration Famotidine 20 mg 02/09/18 21:00 02/10/18 09:38 Pepcid PO 20 mg BID [facility] Administration Famotidine 20 mg 02/09/18 21:00 02/10/18 09:40 Pepcid Pf Inj IV.PUSH Not Given Q12HR [facility] Hydralazine HCl 20 mg 02/09/18 17:00 02/10/18 04:24 Apresoline Inj IV.PUSH 20 mg Q4H PRN Administration SBP > 160 Heparin Sodium/Dextrose 25,000 unit in 250 mls @ 18 mls/hr 02/09/18 08:40 22:31 Heparin/D5w 25,000 U/250 Ml IV.CONT 1,800 units/hr TITRATE PRN 18 mls/hr Per Protocol Administration Protocol 1,800 UNITS/HR Potassium Chloride/Dextrose/Sod Cl 1,000 mls @ 100 mls/hr 02/09/18 09:30 09:40 D5w/1/2ns + Kcl 20 Meq Inj IV.CONT 100 mls/hr .Q10H [facility] Administration Insulin Human Regular 0 units 02/09/18 17:00 02/10/18 09:00 Novolin R Correctional Sugar Inj SQ 2 units ACHS [facility] Administration Protocol Lisinopril 20 mg 02/10/18 09:00 02/10/18 09:38 Prinivil PO 20 mg BID [facility] Administration Metoprolol Tartrate 50 mg 02/09/18 13:45 02/10/18 09:38 Lopressor PO 50 mg BID [facility] Administration Senna/Docusate Sodium 1 tab 02/09/18 21:00 02/10/18 09:39 [place]-Colace PO 1 tab BID [facility] Administration Sodium Chloride 2 ml 02/09/18 21:00 02/10/18 10:49 Ns Flush IV.FLUSH Not Given BID [facility] Tamsulosin HCl 0.4 mg 02/10/18 09:00 02/10/18 09:39 Flomax PO 0.4 mg DAILY [facility] Administration Objective Remarks: GENERAL: Well-nourished, well-developed elderly male patient, in no acute distress. SKIN: Warm and dry. HEAD: Normocephalic. EYES: No scleral icterus. No injection or drainage. NECK: Supple, trachea midline. CARDIOVASCULAR: Irregular rate and rhythm. RESPIRATORY: Breath sounds clear to auscultation, equal bilaterally. Nonlabored at rest, currently on RA. GASTROINTESTINAL: Abdomen soft, non-tender, nondistended. EXTREMITIES: No cyanosis. Pedal pulses present. LLE > RLE. MUSCULOSKELETAL: Adequate muscle tone. NEUROLOGICAL: No obvious focal deficit. Awake, alert, and oriented x3. PSYCHIATRIC: Appropriate mood and affect; insight and judgment normal. Assessment/Plan - Plan Mr. Bethea is a pleasant 73-year-old gentleman with a history of atrial fibrillation and recent hip surgery. He is currently hospitalized with large pulmonary embolism. 12/22/2017 right hip surgery. 02/02-02/04 hospitalized with worsening shortness of breath. Found to have lower extremity VTE with VQ scan having moderate probability of PE. Discharged on warfarin. INR 2.4 on admission, however cardiology states patient had been noncompliant with subtherapeutic INRs as an outpatient. 02/09/2018 readmitted to hospital with worsening dyspnea, CTA showed large pulmonary embolism. Recommendations/plan: 1. Large pulmonary embolism, on heparin drip, APTT 81.6. Patient pending evaluation by IR. Continue heparin drip while inpatient. 2. Failed warfarin therapy. Patient reports some noncompliance with warfarin, cardiology reports subtherapeutic INRs as an outpatient. This patient would benefit from NOAC therapy upon discharge. At discharge would start apixaban 5 mg p.o. twice daily. Noac discussed with the patient. 3. Continue heparin drip per protocol. Continue to monitor for bleeding. - Attending Statement The exam, history, and the medical decision-making described in the above note were completed with the assistance of the mid-level provider. I reviewed and agree with the findings presented. I attest that I had a [id number] encounter with the patient on the same day, and personally performed and documented my assessment and findings in the medical record. 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 Large saddle embolus on heparin. Critical care, IR, CT surgery teams following closely. Clincal symptoms improving. DOAC on discharge.
[2018-02-10] MEDS: Heparin Drip 25,000 UNIT/250 ML BAG IV.CONT PRN (12:59)
--- NOTE | 2018-02-10 14:51 | P.PNCC ---
Subjective Subjective Remarks/Hospital Course: 73-year-old male who underwent right hip surgery on 12/22/17. He presented back to the hospital with shortness of breath and was hospitalized from 1219 through 02/04. He had a VQ scan which was intermediate probability for PE at the time however could not have a CTA due to elevated creatinine. He was also diagnosed with right lower extremity DVT. He was evaluated by cardiology for elevated troponin and underwent a 2D echo which revealed EF LVEF 55-60% and normal RV function. He has a prior history of atrial fibrillation and is followed by Dr. Ramos. He did have retention of urine after his hip surgery for which he had a Leos catheter placed and was to follow-up with his urologist Dr. Wilson. Patient was discharged on 02/04 with Lovenox and Coumadin. Patient presented back to the ER at [facility] today with pain in the upper back which was severe as well as chest pain. He underwent a CTA pulmonary angiogram which revealed large pulmonary embolism involving right main pulmonary artery as well as small emboli in subsegmental branches on the left. His INR was 2.4 today. He was started on heparin for anticoagulation and was accepted for admission by critical care medicine service and transferred to [facility] in case he required a surgical embolectomy or IR intervention. When I evaluated the patient in the ICU he was resting comfortably on room air and was actually hypertensive. Subjective 02/10: Resting in bed in no acute distress. Currently heparin drip. Main complaint is wanting to use the bathroom facilities. Chest pain or shortness of breath or control. Objective Vital Signs / I&O: Vital Signs 02/09/18 15:00 02/09/18 15:16 02/09/18 15:30 Temperature Pulse Rate 94 H 85 83 Respiratory Rate 19 22 25 H Blood Pressure 190/97 H 189/88 H 168/66 H Pulse Oximetry 98 96 96 02/09/18 15:45 02/09/18 16:00 02/09/18 16:15 Temperature Pulse Rate 79 80 81 Respiratory Rate 21 20 20 Blood Pressure 165/97 H 170/83 H 184/94 H Pulse Oximetry 97 97 97 02/09/18 16:30 02/09/18 16:45 02/09/18 17:00 Temperature Pulse Rate 86 82 85 Respiratory Rate 21 21 25 H Blood Pressure 183/98 H 170/88 H 177/87 H Pulse Oximetry 99 97 98 02/09/18 17:15 02/09/18 17:30 02/09/18 17:45 Temperature Pulse Rate 79 88 85 Respiratory Rate 24 26 H 24 Blood Pressure 189/86 H 180/103 H 199/93 H Pulse Oximetry 97 98 98 02/09/18 17:51 02/09/18 18:00 02/09/18 18:08 Temperature Pulse Rate 83 84 89 Respiratory Rate 23 24 27 H Blood Pressure 187/86 H 194/91 H 181/79 H Pulse Oximetry 98 97 98 02/09/18 19:00 02/09/18 20:00 02/09/18 21:00 Temperature Pulse Rate 84 87 78 Respiratory Rate 22 21 30 H Blood Pressure 148/69 H 170/77 H 162/90 H Pulse Oximetry 97 95 97 02/09/18 21:13 02/09/18 22:00 02/09/18 23:00 Temperature Pulse Rate 64 64 Respiratory Rate 24 25 H Blood Pressure 161/68 H 172/77 H Pulse Oximetry 97 98 98 02/10/18 00:00 02/10/18 01:00 02/10/18 02:00 Temperature Pulse Rate 68 83 81 Respiratory Rate 21 22 28 H Blood Pressure 147/84 H 158/85 H 161/108 H Pulse Oximetry 97 97 98 02/10/18 03:00 02/10/18 04:00 02/10/18 05:00 Temperature Pulse Rate 88 87 89 Respiratory Rate 29 H 19 21 Blood Pressure 179/85 H 188/135 H 161/70 H Pulse Oximetry 97 98 96 02/10/18 06:00 02/10/18 07:00 02/10/18 07:30 Temperature Pulse Rate 91 H 91 H 98 H Respiratory Rate 18 20 34 H Blood Pressure 170/80 H 166/77 H 164/83 H Pulse Oximetry 98 97 96 02/10/18 08:00 02/10/18 08:30 02/10/18 08:36 Temperature 99 F Pulse Rate 97 H 99 H Respiratory Rate 22 23 Blood Pressure 160/77 H 189/81 H Pulse Oximetry 96 95 96 02/10/18 09:00 02/10/18 09:30 02/10/18 09:37 Temperature Pulse Rate 95 H 104 H 102 H Respiratory Rate 17 22 26 H Blood Pressure 169/87 H 171/123 H 169/84 H Pulse Oximetry 97 96 95 02/10/18 10:00 02/10/18 11:00 02/10/18 12:00 Temperature 97.7 F Pulse Rate 88 82 81 Respiratory Rate 24 20 23 Blood Pressure 158/79 H 126/70 Pulse Oximetry 95 97 96 02/10/18 13:00 02/10/18 14:00 Temperature Pulse Rate 82 83 Respiratory Rate 22 21 Blood Pressure 139/77 112/60 Pulse Oximetry 98 98 Intake & Output 02/09/18 02/10/18 02/10/18 18:59 06:59 18:59 Intake Total 350 / 350 1730 / 1730 1250 / 1250 Output Total 3250 / 3250 2250 / 2250 Balance -2900 / -2900 -520 / -520 1250 / 1250 Weight 105.5 kg 103.5 kg Intake: IV 1250 / 1250 1250 / 1250 Heparin/D5W 25,000 U/250 mL 25, 250 / 250 250 / 250 000 unit In 250 ml @ 1,800 UNITS/HR 18 mls/hr IV.CONT TITRATE PRN Rx#:[id number] D5W/1/2NS + KCL 20 mEq Inj 1, 1000 / 1000 1000 / 1000 000 ML @ 100 mls/hr IV.CONT . Q10H LOUISE Rx#:[id number] Oral 350 / 350 480 / 480 Output: Urine Amount (Catheter) 3250 / 3250 2250 / 2250 Indwelling Urethral Catheter 3250 / 3250 2250 / 2250 Other: Weight On Admission 105.5 kg Result Diagrams: 02/10/18 05:44 02/09/18 05:30 Imaging: Chest X-Ray 02/09/18 05:08 CONCLUSION: 1. Stable cardiomegaly. 2. No acute abnormality or significant interval change. Chest CTA 02/09/18 06:25 CONCLUSION: 1. Large saddle embolism within the distal portion of the right main pulmonary artery extending into the right upper and lower lobes. Smaller segmental emboli are noted within the left upper and lower lobe pulmonary arteries. 2. Marked cardiomegaly and coronary artery calcifications. 3. Hepatosplenomegaly. 4. Degenerative changes throughout the thoracic spine. Objective Remarks: GENERAL: 73-year-old gentleman currently on nasal cannula no acute distress SKIN: Warm and dry. HEAD: Atraumatic. Normocephalic. EYES: Pupils equal and round. No scleral icterus. No injection or drainage. ENT: No nasal bleeding or discharge. Mucous membranes pink and moist. NECK: Trachea midline. No JVD. CARDIOVASCULAR: IRR., S1, S2. No S4. RESPIRATORY: No accessory muscle use. Clear to auscultation. Breath sounds equal bilaterally. GASTROINTESTINAL: Abdomen soft, non-tender, nondistended. Hepatic and splenic margins not palpable. MUSCULOSKELETAL: Extremities with resolving left greater than right lower extremity edema. Negative Homans sign. NEUROLOGICAL: Awake and alert. No obvious cranial nerve deficits. Motor grossly within normal limits. Five out of 5 muscle strength in the arms and legs. Normal speech. PSYCHIATRIC: Appropriate mood and affect; insight and judgment normal. Assessment and Plan - Assessment and Plan Plan: 73-year-old male with: Large PE with saddle embolus in RUL/RLL and segmental PE in ALEC/LLL Essential hypertension Diabetes mellitus Recent left hip surgery Atrial fibrillation Hyperlipidemia Acute hypomagnesia Acute hypopotassemia Right mid common femoral vein thrombosis BPH Plan: Continue anticoagulation with heparin GTT. patient will be started on apixaban on discharge per hematology for follow-up. Consulted CT surgery due to large PE in case he develops hemodynamic instability and requires surgical embolectomy Hematology consulted for PE. As above we will start on apixaban on discharge Continue antihypertensives, watch for hypotension. Currently lisinopril 20 mg twice daily, metoprolol tartrate 50 mg twice daily and clonidine 0.2 mg 3 times daily Continue atorvastatin 40 mg daily for hyperlipidemia Percocet as needed for pain 1800 ADA diet Continue home meds for diabetes with sliding scale insulin for coverage Consulted cardiology Dr. Hughes covering for Dr. Castro in view of chest pain and large PE, 2D echo revealed EF around 55%. Dilated right atrium. PA P 38 mmHg.. Previous life enrichment assistant discussed with Dr. Hughes. Previous intestines is discussed with IR Dr. Huddleston -as patient is hemodynamically stable currently no intervention planned Consult and transfer to hospitalist service tomorrow 02/11 if he remains hemodynamically stable. Replace electrolytes as clinically indicated per ICU electrolyte protocol Currently D5 one half normal saline with 20 mill cons of KCl at 100 cc an hour Continue tamsulosin 0.4 mg daily. Likely discontinue Leos 02/11 AM Code Status: Full code
[2018-02-10] MEDS ORDERED: Potassium Phosphate Inj 30 MMOL in Sodium Chlor 0.9% Inj 250 ML IV.SIG PRN (14:55)
[2018-02-10] MEDS ORDERED: Potassium Phosphate 500 MG Soluble Tablet PO PRN ×2 (14:55)
[2018-02-10] MEDS ORDERED: Potassium Chlor 20 mEq Premix 20 MEQ/100 ML PIGGYBACK IV.SIG PRN ×2 (14:55)
[2018-02-10] MEDS ORDERED: Potassium Chloride 25 MEQ Effervescent Tablet PO PRN (14:55)
[2018-02-10] MEDS ORDERED: Magnesium Oxide 400 MG Tablet PO PRN (14:55)
[2018-02-10] MEDS ORDERED: Magnesium Sulfate Inj 2 GM in Sodium Chlor 0.9% Inj 96 ML IV.SIG PRN (14:55)
[2018-02-10] MEDS ORDERED: Magnesium Sulfate Inj 4 GM in Sodium Chlor 0.9% Inj 92 ML IV.SIG PRN (14:55)
[2018-02-10] MEDS ORDERED: Potassium Chlor 40 mEq Premix 40 MEQ/100 ML PIGGYBACK IV.SIG PRN ×2 (14:55)
[2018-02-10] MEDS ORDERED: Sodium Phosphate Inj 30 MMOL in Sodium Chlor 0.9% Inj 250 ML IV.SIG PRN (14:55)
--- NOTE | 2018-02-10 16:00 | US ---
EXAM DATE: 02/10/2018 3:56 PM EST AGE/SEX: 73 years / Male INDICATIONS: Bilateral leg edema. CLINICAL DATA: This is the patient's initial encounter. Patient reports that signs and symptoms have been present for 1 month and indicates a pain score of 4/10. MEDICAL/SURGICAL HISTORY: Arthritis. Diabetes. Hypertension. Afib. Enlarged prostate. Hearin g loss. Reflux gastritis. DVT. Large pulmonary embolism. . Left total hip replacement. COMPARISON: [facility], US VENOUS DOPPLER LEG BI, 02/02/2018. . TECHNIQUE: Venous ultrasound of both lower extremities was performed from the inguinal ligament to t he proximal calf. Real-time, color Doppler and spectral tracing, compression and augmentation techni ques were used. FINDINGS: Right Leg: There continues to be some nonocclusive thrombus in the right common femoral vein. This w as present on the prior study and is stable in its appearance. The rest of the deep venous system rem ains patent and unchanged compared to the prior study. Otherwise, no significant changes are seen wit h the deep venous system. Left Leg: Normal compression of the deep venous system from the inguinal region to the proximal calf . No echogenic clot is seen. Normal response of the venous system to augmentation and respiration. Other: None. CONCLUSION: 1. Stable nonocclusive thrombus in the right common femoral vein. No significant change compared to the recent prior study. 2. No evidence of DVT in the left lower extremity. Electronically signed by: Stefan Bello MD Board Certified Radiologist 02/10/2018 3:58 PM EST
[2018-02-10 17:57] LABS: Calcium 7.8 mg/dL (8.5-10.1); Carbon Dioxide 25.1 meq/L (21.0-32.0); Magnesium 1.4 mg/dL (1.5-2.5); Potassium 3.6 meq/L (3.5-5.1)
[2018-02-10 17:58] LABS: Phosphorus 3.3 mg/dL (2.5-4.9)
[2018-02-11] MEDS: Heparin Drip 25,000 UNIT/250 ML BAG IV.CONT PRN ×2 (03:54→21:14)
[2018-02-11 05:05] LABS: Baso % (Auto) 0.6 % (0.0-2.0); Eos # (Auto) 0.3 th/mm3 (0.0-0.4); Eos % (Auto) 3.9 % (0.0-4.0); Hematocrit 28.8 % (39.0-51.0); Hemoglobin 9.8 gm/dL (13.0-17.0); Lymph # (Auto) 1.5 th/mm3 (1.0-4.8); Lymph % (Auto) 19.9 % (9.0-44.0); Mean Corpuscular Hemoglobin 31.1 pg (27.0-34.0); Mean Corpuscular Volume 91.3 fL (80.0-100.0); Mean Platelet Volume 8.3 fL (7.0-11.0); Mono # (Auto) 0.6 th/mm3 (0.0-0.9); Mono % (Auto) 8.2 % (0.0-8.0); Neut # (Auto) 5.2 th/mm3 (1.8-7.7); Neut % (Auto) 67.4 % (16.0-70.0); Platelet Count 225 th/mm3 (150-450); Red Blood Count 3.16 mil/mm3 (4.50-5.90); Red Cell Distribution Width 14.1 % (11.6-17.2); White Blood Count 7.7 th/mm3 (4.0-11.0)
[2018-02-11] MEDS: Chlorhexidine Gluconate 2% 1 Pack (2 Cloths) TOPICAL SCH (05:07)
[2018-02-11 05:15] LABS: Activated Partial Thrombo Time 88.9 sec (23.4-31.7); INR 2.6 Ratio; Prothrombin Time 26.1 sec (9.8-11.6)
[2018-02-11 05:27] LABS: Alanine Aminotransferase 36 U/L (12-78); Anion Gap 8 meq/L (5-15); Aspartate Aminotransferase 27 U/L (15-37); Blood Urea Nitrogen 17 mg/dL (7-18); Carbon Dioxide 26.9 meq/L (21.0-32.0); Chloride 105 meq/L (98-107); Glomerular Filtration Rate 65 mL/min (>89); Glucose,Random 141 mg/dL (74-106); Magnesium 1.3 mg/dL (1.5-2.5); Potassium 3.3 meq/L (3.5-5.1); Sodium 140 meq/L (136-145)
[2018-02-11 05:30] LABS: Alkaline Phosphatase 65 U/L (45-117); Total Protein 5.9 g/dL (6.4-8.2)
[2018-02-11] MEDS: Lisinopril 20 MG Tablet PO SCH ×2 (08:36→21:01)
[2018-02-11] MEDS: Insulin NovoLIN Regular Correctional Sugar Inj SQ SCH ×4 (08:36→21:31)
[2018-02-11] MEDS: Metoprolol Tartrate 50 MG Tablet PO SCH ×2 (08:36→21:02)
[2018-02-11] MEDS: Senna/Docusate Sodium 8.6/50 MG Tablet PO SCH ×2 (08:36→21:03)
[2018-02-11] MEDS: Famotidine 20 MG Tablet PO SCH ×2 (08:36→21:02)
--- NOTE | 2018-02-11 09:45 | P.PNIM ---
Subjective Interval history: eager to get oob Physical Exam Vital signs: Last Vital Signs Temp 98.4 F 02/11/18 00:00 Pulse 71 02/11/18 06:00 Resp 21 02/11/18 06:00 BP 148/86 H 02/11/18 05:00 Pulse Ox 94 L 02/11/18 06:00 Narrative: nad heart reg lung good air entry shey abd s/nt ext mild left leg swelling galicia Results Labs CBC & Chem 7: 02/11/18 04:45 02/11/18 04:45 Assessment and Plan Assessment (1) Pulmonary embolism: Code(s): I26.99 - Other pulmonary embolism without acute cor pulmonale Status: Acute (2) Deep vein thrombosis (DVT) of right lower extremity: Code(s): I82.401 - Acute embolism and thrombosis of unspecified deep veins of right lower extremity Status: Acute (3) Hypertension: Code(s): I10 - Essential (primary) hypertension Status: Chronic (4) History of total hip replacement: Code(s): Z96.649 - Presence of unspecified artificial hip joint Status: Acute (5) Chronic atrial fibrillation: Code(s): I48.2 - Chronic atrial fibrillation Status: Chronic (6) DM2 (diabetes mellitus, type 2): Code(s): E11.9 - Type 2 diabetes mellitus without complications Status: Chronic Plan 73-year-old male with: Large PE with saddle embolus in RUL/RLL and segmental PE in ALEC/LLL dvt Essential hypertension Diabetes mellitus Recent left total hip replacement Atrial fibrillation Hyperlipidemia Acute hypomagnesia Acute hypopotassemia BPH -Continue anticoagulation with heparin GTT. patient will be started on apixaban on discharge per hematology for follow-up. -Consulted CT surgery due to large PE in case he develops hemodynamic instability and requires surgical embolectomy -Hematology consulted for PE. As above we will start on apixaban on discharge -Continue antihypertensives, watch for hypotension. Currently lisinopril 20 mg twice daily, metoprolol tartrate 50 mg twice daily and clonidine 0.2 mg 3 times daily -Continue atorvastatin 40 mg daily for hyperlipidemia -Percocet as needed for pain -1800 ADA diet Continue home meds for diabetes with sliding scale insulin for coverage -Consulted cardiology Dr. Hughes covering for Dr. Castro in view of chest pain and large PE, 2D echo revealed EF around 55%. Dilated right atrium. PA P 38 mmHg.. Continue tamsulosin 0.4 mg daily for bph/urine retention. Pt was admitted with galicia as placed by his urologist for retention. attempt removal today as pt missed his f/u clinic appt. If fails the replace and f/u Urology outpt. transfer out of icu today. PT and oob hopefully dc home in next 24-48hrs. Progress Note: Quality VTE Deep Vein Thrombosis/Pulmonary Embolism Present on Admission: Yes _ (1) Pulmonary embolism Qualifiers: Pulmonary embolism type: saddle Chronicity: acute Acute cor pulmonale presence: with acute cor pulmonale Qualified Code(s): I26.02 - Saddle embolus of pulmonary artery with acute cor pulmonale (2) Deep vein thrombosis (DVT) of right lower extremity Qualifiers: Affected thrombotic vein of extremity: femoral Chronicity: unspecified Qualified Code(s): I82.411 - Acute embolism and thrombosis of right femoral vein (3) Hypertension Qualifiers: Hypertension type: (4) History of total hip replacement Qualifiers: Laterality:
[2018-02-11 17:11] LABS: % Iron Saturation 34.8 % (20-50); Iron 74 mcg/dL (65-175); Total Iron Binding Capacity 213 mcg/dL (250-450)
--- NOTE | 2018-02-11 17:34 | MH ---
cc: Carlos Torrez MD DATE OF ADMISSION: 02/09/2018 REASON: Mr. Bethea is seen in room 526 in hematology up in coverage for Dr. Mullins. HISTORY OF PRESENT ILLNESS: Mr. Bethea is doing very well and he wants to go home soon. He is tolerating his heparin well and he is not having any bleeding or bruising. He has experienced significant improvement in shortness of breath after being in the hospital and being on heparin. Hence, he wants to go home with oral anticoagulants. He has no new complaints. Respiratory: No chest pains or palpitations. REVIEW OF SYSTEMS: No headaches, back pain, bone pain. No cough, chest pain, shortness of breath, or hemoptysis. No abdominal pain, distention, blood in stool, black stools, frequency, urgency, or hematuria. No fevers or night sweats. MEDICATIONS: Reviewed. PHYSICAL EXAMINATION: GENERAL: Well-appearing in no apparent distress. VITAL SIGNS: Stable. He is afebrile. Pallor present. No icterus. No palpable adenopathy in the neck or axilla. HEENT: Without oropharyngeal lesions. NEUROLOGIC: Alert and oriented x4. CARDIOVASCULAR: S1, S2, irregularly irregular. No murmurs or gallops. No distant heart sounds. LUNGS: Clear without crackles or wheeze. ABDOMEN: Soft, without palpable organomegaly. EXTREMITIES: No edema or evidence of DVTs. No calf tenderness. SKIN: No petechiae, ecchymosis, or bruises. LABORATORY DATA: White count 7.7, hemoglobin 9.8, hematocrit 28.8, platelets 225. Chemistry significant for normal liver enzymes and creatinine of 1.1, GFR of 65. IMPRESSION: Large pulmonary embolism with significant symptoms, resolved with anticoagulation with IV heparin in this patient who was subtherapeutic and possibly noncompliant with Coumadin prior to that. Currently, he is relatively asymptomatic with good clinical improvement. We will continue heparin and transition to Eliquis as planned, which would be much more appropriate for him given his history of subtherapeutic PT/INRs. He appears to have a new-onset anemia. No obvious blood loss and it is normocytic. That will need to be evaluated. I will order preliminary iron studies and B12 levels. He can follow up with Dr. Mullins in the office for his anemia after discharge. MD KENNEDY Solo/maryana , 04:46 PM , 04:54 PM
[2018-02-11 17:36] LABS: Ferritin 232 ng/mL (26-388); Vitamin B12 299 pg/mL (193-986)
[2018-02-12] MEDS: Chlorhexidine Gluconate 2% 1 Pack (2 Cloths) TOPICAL SCH (04:18)
[2018-02-12 06:02] LABS: Hematocrit 28.6 % (39.0-51.0); Hemoglobin 9.8 gm/dL (13.0-17.0); Mean Corpuscular HGB Conc 34.1 % (32.0-36.0); Mean Corpuscular Hemoglobin 31.3 pg (27.0-34.0); Mean Corpuscular Volume 91.8 fL (80.0-100.0); Mean Platelet Volume 9.3 fL (7.0-11.0); Platelet Count 213 th/mm3 (150-450); Red Blood Count 3.12 mil/mm3 (4.50-5.90); Red Cell Distribution Width 14.4 % (11.6-17.2); White Blood Count 7.3 th/mm3 (4.0-11.0)
[2018-02-12 06:31] LABS: Carbon Dioxide 25.1 meq/L (21.0-32.0); Magnesium 1.7 mg/dL (1.5-2.5); Potassium 3.7 meq/L (3.5-5.1)
--- NOTE | 2018-02-12 09:24 | P.DCO ---
Diagnosis (1) Pulmonary embolism: Status: Acute Physical Therapy Order: Evaluate and treat and Improve ambulation Home Health Nursing Order: Medical education, Signs/symptoms of disease process, Medication education-adverse effect, Nursing assessment with vital signs and Galicia catheter maintenance Instructions: assist with galicia management. pt to f/u urology Dr Wilson for removal acacia. Case Management Consult Case Management Consult-Home Health: Yes I have seen patient Blanca Bethea on 02/12/18. My clinical findings support the need for the requested home health care services because: I certify that my clinical findings support that this patient is homebound because: _ (1) Pulmonary embolism Qualifiers: Pulmonary embolism type: saddle Chronicity: acute Acute cor pulmonale presence: with acute cor pulmonale Qualified Code(s): I26.02 - Saddle embolus of pulmonary artery with acute cor pulmonale
[2018-02-12] MEDS: Famotidine 20 MG Tablet PO SCH (09:28)
[2018-02-12] MEDS: Lisinopril 20 MG Tablet PO SCH (09:28)
[2018-02-12] MEDS: Metoprolol Tartrate 50 MG Tablet PO SCH (09:28)
[2018-02-12] MEDS: Insulin NovoLIN Regular Correctional Sugar Inj SQ SCH ×2 (09:28→12:41)
[2018-02-12] MEDS: Senna/Docusate Sodium 8.6/50 MG Tablet PO SCH (09:29)
--- NOTE | 2018-02-12 09:30 | P.PNIM ---
Subjective Interval history: pt unable to urinate on his own after galicia removal Physical Exam Vital signs: Last Vital Signs Temp 97.7 F 02/12/18 04:01 Pulse 73 02/12/18 07:01 Resp 27 H 02/12/18 07:01 BP 179/77 H 02/12/18 07:01 Pulse Ox 96 02/12/18 07:01 Narrative: pt appears uncomfortable due to urine retention. heart reg lung good air entry shey abd s/nt ext mild left leg swelling Results Labs CBC & Chem 7: 02/12/18 05:20 02/12/18 05:20 Assessment and Plan Assessment (1) Pulmonary embolism: Code(s): I26.99 - Other pulmonary embolism without acute cor pulmonale Status: Acute Plan 73-year-old male with: Large PE with saddle embolus in RUL/RLL and segmental PE in ALEC/LLL dvt Essential hypertension Diabetes mellitus Recent left total hip replacement Atrial fibrillation Hyperlipidemia Acute hypomagnesia Acute hypopotassemia BPH urine retention -Continue anticoagulation with heparin GTT. patient will be started on apixaban on discharge per hematology for follow-up. -Consulted CT surgery due to large PE in case he develops hemodynamic instability and requires surgical embolectomy -Hematology consulted for PE. As above we will start on apixaban on discharge -Continue antihypertensives, watch for hypotension. Currently lisinopril 20 mg twice daily, metoprolol tartrate 50 mg twice daily and clonidine 0.2 mg 3 times daily -Continue atorvastatin 40 mg daily for hyperlipidemia -Percocet as needed for pain -1800 ADA diet Continue home meds for diabetes with sliding scale insulin for coverage -Consulted cardiology Dr. Hughes covering for Dr. Castro in view of chest pain and large PE, 2D echo revealed EF around 55%. Dilated right atrium. PA P 38 mmHg.. Continue tamsulosin 0.4 mg daily for bph/urine retention. Pt was admitted with galicia as placed by his urologist for retention. attempt removal today as pt missed his f/u clinic appt. If fails the replace and f/u Urology outpt. pt failed galicia removal. nursing going to attempt coude placement and legbag. I called Urology Dr Espinoza impression printer and he said ok to dc pt with coude and legbag and f/u with his regular Urologist. hhc/pt arrangement. recheck hematuria later today. Progress Note: Quality VTE Deep Vein Thrombosis/Pulmonary Embolism Present on Admission: Yes _ (1) Pulmonary embolism Qualifiers: Pulmonary embolism type: saddle Chronicity: acute Acute cor pulmonale presence: with acute cor pulmonale Qualified Code(s): I26.02 - Saddle embolus of pulmonary artery with acute cor pulmonale
[2018-02-12 12:09] VITALS: BP 149/92; PULSE 74; RESP 32; TEMP 98.3; O2SAT 100
--- NOTE | 2018-02-12 12:22 | P.PNONC ---
Subjective Interval history: Afebrile Patient reports he was unable to urinate this morning and had a lot of pain. Leos catheter was placed per HOUSEKEEPING STAFF 1500 mL of pink urine was immediately drained. He denies any shortness of breath Objective Vital Signs/Intake & Output: Vital Signs 02/11/18 13:00 02/11/18 14:00 02/11/18 15:00 Temperature Pulse Rate 76 82 78 Respiratory Rate 29 H 25 H 27 H Blood Pressure 119/75 120/76 158/89 H Pulse Oximetry 97 97 99 02/11/18 15:15 02/11/18 16:00 02/11/18 16:23 Temperature 98.2 F Pulse Rate 84 78 82 Respiratory Rate 21 29 H 29 H Blood Pressure 154/86 H 154/86 H 137/73 Pulse Oximetry 98 98 96 02/11/18 17:00 02/11/18 18:00 02/11/18 19:00 Temperature Pulse Rate 75 73 73 Respiratory Rate 30 H 23 29 H Blood Pressure 155/86 H 156/78 H 154/78 H Pulse Oximetry 98 97 97 02/11/18 20:00 02/11/18 20:55 02/11/18 21:00 Temperature 98.4 F Pulse Rate 68 64 66 Respiratory Rate 23 24 33 H Blood Pressure 168/79 H 134/70 130/78 Pulse Oximetry 98 97 98 02/11/18 22:00 02/11/18 23:00 02/11/18 23:01 Temperature Pulse Rate 59 L 58 L 63 Respiratory Rate 21 26 H 29 H Blood Pressure 154/74 H 159/96 H Pulse Oximetry 97 98 99 02/12/18 00:00 02/12/18 00:01 02/12/18 01:00 Temperature 98.0 F Pulse Rate 65 60 60 Respiratory Rate 22 17 23 Blood Pressure 136/68 Pulse Oximetry 98 97 100 02/12/18 01:01 02/12/18 01:44 02/12/18 02:00 Temperature Pulse Rate 65 57 L 72 Respiratory Rate 21 19 27 H Blood Pressure 176/87 H 101/56 L 147/88 H Pulse Oximetry 100 97 96 02/12/18 03:00 02/12/18 03:01 02/12/18 04:00 Temperature 97.7 F Pulse Rate 60 60 85 Respiratory Rate 21 20 24 Blood Pressure 140/65 Pulse Oximetry 97 99 93 L 02/12/18 04:01 02/12/18 05:00 02/12/18 05:01 Temperature 97.7 F Pulse Rate 80 63 61 Respiratory Rate 20 18 19 Blood Pressure 186/78 H 145/61 H Pulse Oximetry 96 96 99 02/12/18 06:00 02/12/18 06:01 02/12/18 06:09 Temperature Pulse Rate 83 85 83 Respiratory Rate 25 H 31 H 27 H Blood Pressure 160/100 H 184/85 H 195/99 H Pulse Oximetry 99 98 99 02/12/18 06:14 02/12/18 07:00 02/12/18 07:01 Temperature Pulse Rate 74 77 73 Respiratory Rate 20 26 H 27 H Blood Pressure 171/88 H 179/77 H Pulse Oximetry 99 97 96 02/12/18 08:00 02/12/18 09:00 02/12/18 09:01 Temperature 98.5 F Pulse Rate 91 H 98 H 103 H Respiratory Rate 31 H 32 H 32 H Blood Pressure 178/117 H 241/110 H Pulse Oximetry 94 L 97 98 02/12/18 09:07 02/12/18 09:35 02/12/18 10:00 Temperature Pulse Rate 103 H 102 H 86 Respiratory Rate 29 H 23 22 Blood Pressure 234/146 H 193/95 H Pulse Oximetry 96 97 02/12/18 10:01 02/12/18 11:00 02/12/18 11:01 Temperature Pulse Rate 78 69 74 Respiratory Rate 19 29 H 25 H Blood Pressure 146/67 H 139/74 Pulse Oximetry 98 98 99 02/12/18 12:00 02/12/18 12:01 Temperature 98.3 F Pulse Rate 65 74 Respiratory Rate 23 32 H Blood Pressure 149/92 H Pulse Oximetry 98 100 Intake & Output 02/11/18 02/12/18 02/12/18 18:59 06:59 18:59 Intake Total 240 / 240 855 / 855 176 / 176 Output Total 600 / 600 1475 / 1475 Balance -360 / -360 -620 / -620 176 / 176 Weight 234 lb 12.677 oz Intake: IV 176 / 176 Heparin/D5W 25,000 U/250 mL 25, 176 / 176 000 unit In 250 ml @ 1,800 UNITS/HR 18 mls/hr IV.CONT TITRATE PRN Rx#:[id number] Oral 240 / 240 855 / 855 Output: Urine Amount (Catheter) 600 / 600 1475 / 1475 Indwelling Urethral Catheter 600 / 600 Straight 1475 / 1475 Other: Date of Last Bowel Movement 02/10/18 # Bowel Movements 0 Result Diagrams: 02/12/18 05:20 02/12/18 05:20 Laboratory Results: Laboratory Results - last 24 hr 02/11/18 02/11/18 02/11/18 04:45 04:45 14:15 WBC RBC Hgb Hct MCV MCH MCHC RDW Plt Count MPV APTT 60.5 H D Sodium 140 Potassium 3.3 L Chloride 105 Carbon Dioxide 26.9 Anion Gap 8 BUN 17 Creatinine 1.10 Estimated GFR 65 L POC Glucose Random Glucose 141 H Calcium 8.0 L Phosphorus 4.0 Magnesium 1.3 L Iron 74 Cancelled TIBC 213 L Cancelled % Saturation 34.8 Cancelled Ferritin 232 Cancelled Total Bilirubin 0.8 AST 27 ALT 36 Alkaline Phosphatase 65 Total Protein 5.9 L D Albumin 3.0 L Vitamin B12 299 Cancelled 02/11/18 02/11/18 02/12/18 17:28 21:11 05:20 WBC 7.3 RBC 3.12 L Hgb 9.8 L Hct 28.6 L MCV 91.8 MCH 31.3 MCHC 34.1 RDW 14.4 Plt Count 213 MPV 9.3 APTT Sodium Potassium Chloride Carbon Dioxide Anion Gap BUN Creatinine Estimated GFR POC Glucose 210 H 219 H Random Glucose Calcium Phosphorus Magnesium Iron TIBC % Saturation Ferritin Total Bilirubin AST ALT Alkaline Phosphatase Total Protein Albumin Vitamin B12 02/12/18 02/12/18 05:20 05:20 WBC RBC Hgb Hct MCV MCH MCHC RDW Plt Count MPV APTT 58.1 H Sodium 141 Potassium 3.7 Chloride 108 H Carbon Dioxide 25.1 Anion Gap 8 BUN 18 Creatinine 0.95 Estimated GFR 77 L POC Glucose Random Glucose 142 H Calcium 8.0 L Phosphorus Magnesium 1.7 Iron TIBC % Saturation Ferritin Total Bilirubin AST ALT Alkaline Phosphatase Total Protein Albumin Vitamin B12 Medications: Active Medications Generic Name Dose Route Start Last Admin Trade Name Freq PRN Reason Stop Dose Admin Apixaban 5 mg 02/12/18 12:00 02/12/18 11:22 Eliquis PO 5 mg BID LOUISE Administration Atorvastatin Calcium 40 mg 02/10/18 09:00 02/12/18 09:28 Lipitor PO 40 mg DAILY LOUISE Administration Chlorhexidine Gluconate 3 pack 02/10/18 04:00 02/12/18 04:18 Chlorhexidine 2% Cloth TOPICAL 02/15/18 03:59 Not Given DAILY@0400 LOUISE Clonidine HCl 0.2 mg 02/09/18 18:00 02/12/18 09:28 Catapres PO 0.2 mg TID LOUISE Administration Famotidine 20 mg 02/09/18 21:00 02/12/18 09:28 Pepcid PO 20 mg BID LOUISE Administration Insulin Human Regular 0 units 02/09/18 17:00 02/12/18 09:28 Novolin R Correctional Sugar Inj SQ Not Given ACHS [facility] Protocol Lisinopril 20 mg 02/10/18 09:00 02/12/18 09:28 Prinivil PO 20 mg BID LOUISE Administration Metoprolol Tartrate 50 mg 02/09/18 13:45 02/12/18 09:28 Lopressor PO 50 mg BID LOUISE Administration Senna/Docusate Sodium 1 tab 02/09/18 21:00 02/12/18 09:29 Enid-Colace PO Not Given BID LOUISE Sodium Chloride 2 ml 02/09/18 21:00 02/12/18 09:28 Ns Flush IV.FLUSH 2 ml BID LOUISE Administration Tamsulosin HCl 0.4 mg 02/10/18 09:00 02/12/18 09:28 Flomax PO 0.4 mg DAILY LOUISE Administration Objective Remarks: GENERAL: Well-nourished, well-developed elderly male patient, in no acute distress. SKIN: Warm and dry. HEAD: Normocephalic. EYES: No scleral icterus. No injection or drainage. NECK: Supple, trachea midline. CARDIOVASCULAR: Irregular rate and rhythm. RESPIRATORY: Breath sounds clear to auscultation, equal bilaterally. Nonlabored at rest, currently on RA. GASTROINTESTINAL: Abdomen soft, non-tender, nondistended. : Leos catheter in place with pink tinged urine noted. EXTREMITIES: No cyanosis. MUSCULOSKELETAL: Adequate muscle tone. NEUROLOGICAL: No obvious focal deficit. Awake, alert, and oriented x3. Assessment/Plan - Plan Mr. Bethea is a pleasant 73-year-old gentleman with a history of atrial fibrillation and recent hip surgery. He is currently hospitalized with large pulmonary embolism. 12/22/2017 right hip surgery. 02/02-02/04 hospitalized with worsening shortness of breath. Found to have lower extremity VTE with VQ scan having moderate probability of PE. Discharged on warfarin. INR 2.4 on admission, however cardiology states patient had been noncompliant with subtherapeutic INRs as an outpatient. 02/09/2018 readmitted to hospital with worsening dyspnea, CTA showed large pulmonary embolism. Recommendations/plan: 1. Large pulmonary embolism; patient will be transitioned from heparin drip to Eliquis today. 2. Discussed with patient to monitor the color of his urine. Once he is discharged he should seek medical attention should he have progressively increased hematuria. 3. Monitor CBC. Continue to monitor for bleeding.
--- NOTE | 2018-02-17 16:13 | P.DS ---
DS: Providers Date of admission: 02/09/18 08:24 Primary care physician: Ap Sexton MD Consults: 02/09/18 08:28 Consult to Cardiology Routine Consulting Provider: Damion Castro Does the patient have a Scalehouse Attendant who follows them?: Yes Preferred Gem Setter:: Damion Castro Reason for Consultation: saddle embolism Notified:: Office Spoke with:: sylvia Date Notified:: 02/09/18 Time Notified:: 08:34 Ordering Provider: FEI 02/09/18 09:30 Consult to Cardiothoracic Surgery Routine Consulting Provider: Mamadou Harrell Reason for Consultation: saddle PE, recent hip surgery. Possible k[place] for surgical embolectomy Notified:: Service Spoke with:: alanis/supervisor matrix Date Notified:: 02/09/18 Time Notified:: 09:48 Ordering Provider: JOSEFINA 02/09/18 12:33 Consult to Hematology Routine Consulting Provider: Arely Mullins Reason for Consultation: pulmonary embolism Notified:: Office Spoke with:: SUNG Date Notified:: 02/09/18 Time Notified:: 12:45 Ordering Provider: JOSEFINA 02/10/18 14:48 Consult to Hospitalist Routine Consulting Provider: Russ Dow Reason for Consultation: Ida of care in [id number]. Admission with pulmonary embolism. Currently on room air. Notified:: Service Spoke with:: Sonya Date Notified:: 02/10/18 Time Notified:: 14:50 Ordering Provider: ADDIE Brief History from admission: 73-year-old male who underwent right hip surgery on 12/22/17. He presented back to the hospital with shortness of breath and was hospitalized from 1218 through 02/04. He had a VQ scan which was intermediate probability for PE at the time however could not have a CTA due to elevated creatinine. He was also diagnosed with right lower extremity DVT. He was evaluated by cardiology for elevated troponin and underwent a 2D echo which revealed EF LVEF 55-60% and normal RV function. He has a prior history of atrial fibrillation and is followed by Dr. Ramos. He did have retention of urine after his hip surgery for which he had a [place] catheter placed and was to follow-up with his urologist Dr. Wilson. Patient was discharged on 02/04 with Lovenox and Coumadin. Patient presented back to the ER at [facility] [place] today with pain in the upper back which was severe as well as chest pain. He underwent a CTA pulmonary angiogram which revealed large pulmonary embolism involving right main pulmonary artery as well as small emboli in subsegmental branches on the left. His INR was 2.4 today. He was started on heparin for anticoagulation and was accepted for admission by critical care medicine service and transferred to [facility] in case he required a surgical embolectomy or IR intervention. When I evaluated the patient in the ICU he was resting comfortably on room air and was actually hypertensive. DS: Diagnosis Discharge Diagnosis (1) Pulmonary embolism: Status: Acute DS: Summary Assessment and Plan Assessment (1) Pulmonary embolism: Code(s): I26.99 - Other pulmonary embolism without acute cor pulmonale Status: Acute Plan 73-year-old male with: Large PE with saddle embolus in RUL/RLL and segmental PE in ALEC/LLL dvt Essential hypertension Diabetes mellitus Recent left total hip replacement Atrial fibrillation Hyperlipidemia Acute hypomagnesia Acute hypopotassemia BPH urine retention -Continue anticoagulation with heparin GTT. patient will be started on apixaban on discharge per hematology for follow-up. -Consulted CT surgery due to large PE in case he develops hemodynamic instability and requires surgical embolectomy -Hematology consulted for PE. As above we will start on apixaban on discharge -Continue antihypertensives, watch for hypotension. Currently lisinopril 20 mg twice daily, metoprolol tartrate 50 mg twice daily and clonidine 0.2 mg 3 times daily -Continue atorvastatin 40 mg daily for hyperlipidemia -Percocet as needed for pain -1800 ADA diet Continue home meds for diabetes with sliding scale insulin for coverage -Consulted cardiology Dr. Hughes covering for Dr. Castro in view of chest pain and large PE, 2D echo revealed EF around 55%. Dilated right atrium. PA P 38 mmHg.. Continue tamsulosin 0.4 mg daily for bph/urine retention. Pt was admitted with galicia as placed by his urologist for retention. attempt removal today as pt missed his f/u clinic appt. If fails the replace and f/u Urology outpt. pt failed galicia removal. nursing going to attempt coude placement and legbag. I called Urology Dr Espinoza front desk person and he said ok to dc pt with coude and legbag and f/u with his regular Urologist. hhc/pt arrangement. recheck hematuria later today. : Time Spent with Patient Total time spent providing and/or coordinating discharge services: Quality: VTE Deep Vein Thrombosis/Pulmonary Embolism Present on Admission: Yes Results Impressions ITS Impressions Chest X-Ray 02/09/18 05:08 CONCLUSION: 1. Stable cardiomegaly. 2. No acute abnormality or significant interval change. Chest CTA 02/09/18 06:25 CONCLUSION: 1. Large saddle embolism within the distal portion of the right main pulmonary artery extending into the right upper and lower lobes. Smaller segmental emboli are noted within the left upper and lower lobe pulmonary arteries. 2. Marked cardiomegaly and coronary artery calcifications. 3. Hepatosplenomegaly. 4. Degenerative changes throughout the thoracic spine. Venous Doppler Study 02/10/18 00:00 CONCLUSION: 1. Stable nonocclusive thrombus in the right common femoral vein. No significant change compared to the recent prior study. 2. No evidence of DVT in the left lower extremity. Discharge Plan Discharge Disposition Patient Disposition: W/Home Health Service Discharge Condition Condition: Stable Discharge Order Discharge Orders: Discharge Order (Routine); Ordered 02/12/18 Ordered By: Russ Dow Discharge Details Anticipated Discharge Date: 02/12/18 Discharge Comment: dc home later today with coude cath/legbag and hhc/ pt.....notify me if pt has persistent hematuria after flushing. Physicians Team Primary Care Provider: Ap Sexton Attending Provider: Mack Garnica Other Providers: Damion Castro ; Mamadou Harrell ; Arely Mullins ; Russ Dow Rxs /Orders / Referrals /Forms Prescriptions: New apixaban [Eliquis] 5 mg Tablet 5 mg PO BID Qty: 60 RF: 3 Continue clonidine HCl 0.2 mg Tablet 0.2 mg PO TID RF: 0 tamsulosin [Flomax] 0.4 mg Capsule 0.4 mg PO DAILY RF: 0 metformin 1,000 mg Tablet 1,000 mg PO BID RF: 0 hydrocodone-acetaminophen 10-325 mg Tablet 1 tab PO Q4H PRN (Reason: Pain) RF: 0 exenatide [Byetta] 10 mcg/dose(250 mcg/mL) 2.4 mL Pen Injector 10 mcg SUBCUT BID RF: 0 rosuvastatin 20 mg Tablet 20 mg PO DAILY RF: 0 metoprolol tartrate 50 mg Tablet 50 mg PO BID 30 Days Qty: 60 RF: 1 lisinopril 20 mg Tablet 20 mg PO BID 30 Days Qty: 60 RF: 1 Discontinued enoxaparin [Lovenox] 120 mg/0.8 mL Syringe 110 mg subcut Q12HR 10 Days Qty: 20 RF: 0 warfarin [Coumadin] 5 mg Tablet 5 mg PO DAILY@1600 30 Days Qty: 30 RF: 0 Referrals: Ap Sexton MD [Primary Care Provider] - See Instructions (1 week f/u) Arely Mullins [Physician] - See Instructions (2 week f/u ) Discharge Instructions Patient Printed Instructions: Pulmonary Embolism (DC), Enlarged Prostate (BPH) (DC), Galicia Catheter Placement and Care (DC), Safe Use of Anticoagulants (DC) Status ED Status: Left Department Discharge Information Discharge Date/Time: 02/12/18 15:00
== END 2018-02-12 15:00 | disposition home health service (06) | DRG 176 ==
LOC: PHED 01:15 → PHEDA 08:24 → HIMC 11:10
PROVIDERS: ADMIT Internal Medicine Critical Care Medicine; ATTEND Internal Medicine Critical Care Medicine
DX: E83.42 Hypomagnesemia; Z87.442 Personal history of urinary calculi; I11.9 Hypertensive heart disease without heart failure; Z96.642 Presence of left artificial hip joint; D64.9 Anemia, unspecified; I47.2 Ventricular tachycardia; R06.01 Orthopnea; R33.8 Other retention of urine; Z79.01 Long term (current) use of anticoagulants; M54.6 Pain in thoracic spine; E87.6 Hypokalemia; M19.90 Unspecified osteoarthritis, unspecified site; Z79.899 Other long term (current) drug therapy; H91.90 Unspecified hearing loss, unspecified ear; Z86.711 Personal history of pulmonary embolism; N40.1 Benign prostatic hyperplasia with lower urinary tract symptoms; I70.0 Atherosclerosis of aorta; K29.60 Other gastritis without bleeding; I26.92 Saddle embolus of pulmonary artery without acute cor pulmonale; E11.42 Type 2 diabetes mellitus with diabetic polyneuropathy; I48.2 Chronic atrial fibrillation; I82.411 Acute embolism and thrombosis of right femoral vein; R74.8 Abnormal levels of other serum enzymes; Z91.14 Patient's other noncompliance with medication regimen; Z79.84 Long term (current) use of oral hypoglycemic drugs; Z87.891 Personal history of nicotine dependence; E78.5 Hyperlipidemia, unspecified; I95.9 Hypotension, unspecified
CPT/HCPCS: 71010; 71045; 71275; 80048; 80053; 81001; 82607; 82728; 82948; 82962; 83520; 83540; 83550; 83735; 83880; 84100; 84484; 85025; 85027; 85610; 85730; 87641; 93005; 93308; 93970; 97162; 99285; J0360; J1644; J3480; Q9967